=== PATIENT | female | born 1960 | race Caucasian/White ===

== ENCOUNTER → 2019-08-05 11:30 | Outpatient (BNVA) | payer OTHER, SELFPAY | PROVIDERS: Family Provider Internal Medicine; PCP Internal Medicine; Visit Provider Internal Medicine | DX: E11.9 Type 2 diabetes mellitus without complications (principal); K75.81 Nonalcoholic steatohepatitis (NASH); B00.9 Herpesviral infection, unspecified; E78.5 Hyperlipidemia, unspecified; N18.9 Chronic kidney disease, unspecified; L66.3 Perifolliculitis capitis abscedens | CPT/HCPCS: 80053; 80061; 83036; 85025 ==

== ENCOUNTER → 2019-12-04 12:10 | Outpatient (BNVA) | payer OTHER, SELFPAY | PROVIDERS: Family Provider Internal Medicine; PCP Internal Medicine; Visit Provider Internal Medicine | DX: E11.9 Type 2 diabetes mellitus without complications (principal); R21 Rash and other nonspecific skin eruption; E78.5 Hyperlipidemia, unspecified; B00.9 Herpesviral infection, unspecified; N18.9 Chronic kidney disease, unspecified | CPT/HCPCS: 83036 ==

== ENCOUNTER → 2019-12-17 09:49 | Outpatient (BNVA) | payer OTHER, SELFPAY | PROVIDERS: Family Provider Internal Medicine; PCP Internal Medicine; Visit Provider Dermatology | DX: R21 Rash and other nonspecific skin eruption (principal); L40.8 Other psoriasis; L98.9 Disorder of the skin and subcutaneous tissue, unspecified; L81.9 Disorder of pigmentation, unspecified | CPT/HCPCS: 11300; 88305; 99202; 99203 ==

== ENCOUNTER → 2020-02-11 14:07 | Outpatient (BNVA) | payer OTHER, SELFPAY | PROVIDERS: Family Provider Internal Medicine; PCP Internal Medicine; Visit Provider Podiatrist Foot & Ankle Surgery | DX: S93.622A Sprain of tarsometatarsal ligament of left foot, initial encounter (principal); W10.9XXA Fall (on) (from) unspecified stairs and steps, initial encounter | CPT/HCPCS: 73630 ==

== ENCOUNTER 2020-02-11 15:19 | Outpatient (CLI) | payer OTHER, SELFPAY | END 2020-02-11 15:20 | disposition home or self-care (01) | LOC: SPT 15:21 | PROVIDERS: Family Provider Internal Medicine; PCP Internal Medicine; Visit Provider Podiatrist Foot & Ankle Surgery | DX: Z46.89 Encounter for fitting and adjustment of other specified devices (principal); S93.62 Sprain of tarsometatarsal ligament of foot; X58.XXXD Exposure to other specified factors, subsequent encounter | CPT/HCPCS: 97760; L4361 ==

== ENCOUNTER → 2020-02-25 13:47 | Outpatient (BNVA) | payer OTHER, SELFPAY | PROVIDERS: Family Provider Internal Medicine; PCP Internal Medicine; Visit Provider Podiatrist Foot & Ankle Surgery | DX: S93.622D Sprain of tarsometatarsal ligament of left foot, subsequent encounter (principal); W10.9XXD Fall (on) (from) unspecified stairs and steps, subsequent encounter | CPT/HCPCS: 73620; 73630 ==

== ENCOUNTER → 2020-03-04 10:00 | Outpatient (BNVA) | payer OTHER, SELFPAY | PROVIDERS: Family Provider Internal Medicine; PCP Internal Medicine; Visit Provider Internal Medicine | DX: E11.9 Type 2 diabetes mellitus without complications (principal); K75.81 Nonalcoholic steatohepatitis (NASH); B00.9 Herpesviral infection, unspecified; N18.9 Chronic kidney disease, unspecified; E78.5 Hyperlipidemia, unspecified | CPT/HCPCS: 80053; 80061; 83036; 84443; 85025 ==

== ENCOUNTER → 2020-03-17 08:22 | Outpatient (BNVA) | payer OTHER, SELFPAY | PROVIDERS: Family Provider Internal Medicine; PCP Internal Medicine; Visit Provider Podiatrist Foot & Ankle Surgery | DX: M79.672 Pain in left foot (principal) | CPT/HCPCS: 73630 ==

== ENCOUNTER → 2020-05-19 10:20 | Outpatient (BNVA) | payer OTHER, SELFPAY | PROVIDERS: Family Provider Internal Medicine; PCP Internal Medicine; Visit Provider Podiatrist Foot & Ankle Surgery | DX: S99.922A Unspecified injury of left foot, initial encounter (principal); X58.XXXA Exposure to other specified factors, initial encounter | CPT/HCPCS: 73630 ==

== ENCOUNTER → 2020-08-16 08:28 | Outpatient (BNVA) | payer OTHER, SELFPAY | PROVIDERS: Family Provider Internal Medicine; PCP Internal Medicine; Visit Provider Podiatrist Foot & Ankle Surgery | DX: M77.31 Calcaneal spur, right foot (principal) | CPT/HCPCS: 73630 ==

== ENCOUNTER 2020-08-16 13:35 | Outpatient (CLI) | payer OTHER, SELFPAY | END 2020-08-16 13:36 | disposition home or self-care (01) | LOC: SPT 13:36 | PROVIDERS: Family Provider Internal Medicine; PCP Internal Medicine; Visit Provider Podiatrist Foot & Ankle Surgery | DX: Z46.89 Encounter for fitting and adjustment of other specified devices (principal); M79.673 Pain in unspecified foot; M76.829 Posterior tibial tendinitis, unspecified leg; S92.911D Unspecified fracture of right toe(s), subsequent encounter for fracture with routine healing; X58.XXXD Exposure to other specified factors, subsequent encounter | CPT/HCPCS: 97760; L1902 ==

== ENCOUNTER → 2020-09-07 13:28 | Outpatient (BNVA) | payer OTHER, SELFPAY | PROVIDERS: Family Provider Internal Medicine; PCP Internal Medicine; Visit Provider Podiatrist Foot & Ankle Surgery | DX: M79.673 Pain in unspecified foot (principal); M76.829 Posterior tibial tendinitis, unspecified leg; S92.911A Unspecified fracture of right toe(s), initial encounter for closed fracture; E78.5 Hyperlipidemia, unspecified; E11.9 Type 2 diabetes mellitus without complications; N18.9 Chronic kidney disease, unspecified | CPT/HCPCS: 73630 ==

== ENCOUNTER 2020-11-25 13:02 | Emergency (ER) | payer OTHER, SELFPAY ==
[2020-11-25 13:15] VITALS: BP 156/91; PULSE 78; RESP 16; TEMP 36.7; O2SAT 100; BMI 33.9
[2020-11-25 13:30] LABS: Glucose Point of Care 132 mg/dL (70-110)
--- NOTE | 2020-11-25 13:35 | ECG_ITS ---
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 Measurements Intervals [place] Rate: 74 P: 33 VT: 202 QRS: 26 QRSD: 93 T: 31 QT: 410 QTc: 455 Interpretive Statements SINUS RHYTHM Compared to ECG 06/29/2017 09:57:38 No significant changes Electronically Signed On 11-25-2020 18:22:23 CDT by Sawyer Gann M.D. [id number]
[2020-11-25 13:39] VITALS: BP 155/79; PULSE 71; RESP 15; O2SAT 95
--- NOTE | 2020-11-25 13:43 | PC.NURSE ---
PT FSBS 132 HEALTHCARE PROVIDER NOTIFIED.
[2020-11-25 13:46] LABS: Basophils # 0.1 10^3/uL (0.0-0.1); Basophils % 0.6 %; Eosinophils # 0.5 10^3/uL (0.0-0.8); Eosinophils % 3.7 %; Hematocrit 38.1 % (37.0-47.0); Hemoglobin 12.5 g/dL (11.5-15.3); Lymphocytes # 6.1 10^3/uL (0.8-4.8); Lymphocytes % 48.9 %; Mean Corpuscular HGB Conc 32.8 g/dL (30.0-36.0); Mean Corpuscular Hemoglobin 29.9 pg (28.0-34.0); Mean Corpuscular Volume 91.1 fL (81-99); Mean Platelet Volume 9.4 fL (7.4-10.4); Monocytes # 0.8 10^3/uL (0.2-0.9); Monocytes % 6.3 %; Neutrophils # 4.99 10^3/uL (1.8-7.7); Neutrophils % 40.1 %; Nucleated Red Blood Cells % 0 %; Platelet Count 360 10^3/cmm (130-400); Red Blood Count 4.18 10^6/uL (4.1-5.3); Red Cell Distribution Width 13.2 % (12.1-15.1); White Blood Count 12.4 10^3/uL (4.0-10.0)
--- NOTE | 2020-11-25 13:46 | W.ED.GENADLT ---
HPI - General Adult General: Chief complaint: General Medical Stated complaint: SHAKY, TYPE 11 DIABETIC, FEELS LIKE SUGAR IS LOW Time Seen by Provider: 11/25/20 13:33 History of Present Illness: HPI narrative: Hobson shaky today. Hobson like she her blood sugar got too low. We checked it here is 132's which she says is very low for her and she does feel shaky when he gets like that.Also complains about neuropathy in her feet the last few days MD complaint: Shakiness Onset (ago): minute(s) Associated symptoms: Deny chest pain, dyspnea, headache(s), nausea, rash or vomiting Review of Systems Narrative: Shakiness blood sugar dropped Const: Denies: fever(s), chills or body aches Eyes: Denies: change in vision or blurry vision ENMT: Denies: throat pain or nasal congestion Card: Denies: chest pain or dyspnea on exertion Resp: Denies: dyspnea, productive cough or non-productive cough GI: Denies: abdominal pain, nausea or vomiting Musc: Reports: extremity pain Skin/Breast: Denies: rash Neuro: Denies: headache(s) Psych: Denies: anxiety or depression Brian/Lymph: Denies: easy bruising PFSH ED PFSH: Medical History CKD (chronic kidney disease) Diabetes mellitus Hyperlipidemia Lichen sclerosus Primary osteoarthritis of both hands Surgical History History of esophagogastroduodenoscopy (EGD) History of hysterectomy History of renal stent Family History Mother Diabetes Sister Diabetes Stroke Brother Diabetes Clotting disorder Heart disease Cancer bladder cancer Brother Heart disease Hypertension Denies family history of Colon cancer Ovarian cancer Hyperlipidemia Breast cancer Bleeding disorder Uterine cancer Social History Smoking and tobacco status: never smoked Alcohol intake: never History of recent travel: No Physical Exam Const: COMMON NORMALS: no acute distress, average body habitus and patient oriented x3 HENMT: COMMON NORMALS: normocephalic HEAD & SCALP: normal to inspection and normocephalic FACE & SINUS: normal facial exam Eye: COMMON NORMALS: conjunctivae normal GENERAL EYE: appearance normal, both eyes and all related structures CONJUNCTIVA: Yes conjunctivae normal Neck/C-Spine: COMMON NORMALS: no JVD Chest: COMMONS NORMALS: normal inspection of the chest Resp: COMMON NORMALS: normal respiratory effort and clear to auscultation bilaterally AUSCULTATION: clear to auscultation bilaterally Cardio: COMMON NORMALS: no JVD, regular rate and regular rhythm RATE: regular rate RHYTHM: regular rhythm GI: COMMON NORMALS: Normal to inspection, nondistended, normoactive bowel sounds present Extremity: COMMON NORMALS: full ROM Neuro: COMMON NORMALS: patient oriented x3 Course Vital Signs: Vital signs: Vital Signs Temperature 98.0 F 11/25/20 13:15 Pulse Rate 72 11/25/20 14:20 Respiratory Rate 16 11/25/20 14:20 Blood Pressure 144/97 11/25/20 14:20 Pulse Oximetry 94 11/25/20 14:20 MDM - General Adult MDM Narrative: Medical decision making narrative: EKG and labs are normal. Patient states when her sugar gets down as it is in the 130s she feels this way at times. Did not really feel like eating so she drank half a Coke. Comes to the ER because she just did not feel much better. Does complain about neuropathy in her feet which she sees Dr. Souza for. Patient will follow primary care and Dr. Souza. Encourage a good carbohydrate meal consistent with ADA guidelines Lab Data: Labs: Lab Results 11/25/20 11/25/20 11/25/20 Range/Units 13:25 13:35 13:35 WBC 12.4 H (4.0-10.0) 10^3/ uL RBC 4.18 (4.1-5.3) 10^6/u L Hgb 12.5 (11.5-15.3) g/dL Hct 38.1 (37.0-47.0) % MCV 91.1 (81-99) fL MCH 29.9 (28.0-34.0) pg MCHC 32.8 (30.0-36.0) g/dL RDW 13.2 (12.1-15.1) % Plt Count 360 (130-400) 10^3/c mm MPV 9.4 (7.4-10.4) fL Neut % (Auto) 40.1 % Lymph % (Auto) 48.9 % [place] % (Auto) 6.3 % Eos % (Auto) 3.7 % Baso % (Auto) 0.6 % Neut # (Auto) 4.99 (1.8-7.7) 10^3/u L Lymph # (Auto) 6.1 H (0.8-4.8) 10^3/u L [place] # (Auto) 0.8 (0.2-0.9) 10^3/u L Eos # (Auto) 0.5 (0.0-0.8) 10^3/u L Baso # (Auto) 0.1 (0.0-0.1) 10^3/u L Nucleated RBC % (a uto) 0 % Nucleated RBCs # 0.0 /100WBC Sodium 140 (136-145) mmol/L Potassium 4.0 (3.5-5.1) mmol/L Chloride 103 (98-107) mmol/L Carbon Dioxide 24 (22-29) mmol/L Anion Gap 17.0 (5-19) BUN 16 (6-20) mg/dL Creatinine 1.0 H (0.5-0.9) mg/dL GFR Calculation 56.9 L (90-130) mL/min Glucose 136 H (65-115) mg/dL POC Glucose 132 H (70-110) mg/dL Calculated Osmolal ity 293 (285-295) mOsm/k g Calcium 8.7 (8.5-10.5) mg/dL Total Bilirubin 0.2 (0.15-1.2) mg/dL AST 13 (0-32) U/L ALT 10 (0-33) U/L Alkaline Phosphata se 66 (35-105) IU/L Total Protein 6.8 (6.6-8.7) g/dL Albumin 3.6 (3.5-5.2) g/dL Globulin 3.2 (1.3-4.6) g/dL EKG Data^: EKG 1: EKG interpretation date: 11/25/20 EKG interpretation time: 13:50 Computer generated interpretation: Normal sinus rhythm ventricular rate 74 bpm MT interval 202 ms QRS duration 93 ms QT 410 ms Discharge Plan Discharge Patient Disposition: Home Clinical Impression: Low blood sugar, Neuropathy Condition: Stable Prescriptions: New Voltaren 1 % gel 4 g topical QID Qty: 100 RF: 0 No Action clobetasol [Temovate] 0.05 % cream 1 applic topical BID 14 Days Qty: 45 RF: 0 mometasone 0.1 % solution 1 applic TOPICAL DAILY Qty: 60 RF: 2 mupirocin 2 % ointment 1 applic TOPICAL BID Qty: 22 RF: 1 clindamycin phosphate 1 % lotion 1 applic TOPICAL BID Qty: 60 RF: 1 ciclopirox 1 % shampoo 5 ml topical .2 x weekly Qty: 120 RF: 4 (DME) ptt supenator brace See Rx Instructions .Route .MEDSUPPLY Qty: 1 RF: 0 (DME) diabetic shoes and molded insert See Rx Instructions .Route .MEDSUPPLY Qty: 1 RF: 0 lisinopril 20 mg tablet 20 mg PO DAILY 90 Days Qty: 90 RF: 1 valacyclovir [Valtrex] 500 mg tablet 500 mg PO DAILY Qty: 90 RF: 3 gabapentin 600 mg tablet 600 mg PO TID Qty: 90 RF: 3 Linzess 145 mcg capsule 145 mcg PO DAILY Qty: 30 RF: 3 duloxetine 30 mg capsule,delayed release(DR/EC) 90 mg PO DAILY MDD 3 30 Days Qty: 90 RF: 6 pantoprazole 40 mg tablet,delayed release (DR/EC) 40 mg PO DAILY Qty: 30 RF: 3 (DME) pen needle, diabetic [1st Tier Unifine Pentips] 31 gauge x 1/4 needle See Rx Instructions .ROUTE .MEDSUPPLY Qty: 100 RF: 12 terconazole 0.4 % cream 7 g vaginal BEDTIME RF: 0 Tresiba FlexTouch U-200 200 unit/mL (3 mL) insulin pen 70 unit SUBCUT BEDTIME RF: 0 Trulicity 0.75 mg/0.5 mL pen injector 0.75 mg SUBCUT Q7D RF: 0 Discharge Orders: Discharge ED (Routine); Ordered 11/25/20 Ordered By: Chai Hodges Referrals: Horacio Frazier MD [Primary Care Provider] - Discharge Diet: Usual diet Discharge Activity: Increase activity as tolerated Patient Instructions: Diabetic Hypoglycemia (ED), Peripheral Neuropathy (ED) Activity Restrictions/Additional Instructions: Follow-up with medical provider as directed. Take medications as prescribed. Return to the ER or your medical provider if condition worsens. Please read and understand discharge instructions. If any questions ask please. Coding Level of Care Code ED Die Mechanic for Daisy Fwd Exam Comprehensive
[2020-11-25 14:09] LABS: Alanine Aminotransferase 10 U/L (0-33); Albumin Level 3.6 g/dL (3.5-5.2); Alkaline Phosphatase 66 IU/L (35-105); Aspartate Amino Transferase 13 U/L (0-32); Blood Urea Nitrogen 16 mg/dL (6-20); Calcium 8.7 mg/dL (8.5-10.5); Carbon Dioxide 24 mmol/L (22-29); Chloride 103 mmol/L (98-107); Globulin 3.2 g/dL (1.3-4.6); Glomerular Filtration Rate 56.9 mL/min (90-130); Glucose 136 mg/dL (65-115); Osmolality Calculated 293 mOsm/kg (285-295); Sodium 140 mmol/L (136-145); Total Bilirubin 0.2 mg/dL (0.15-1.2); Total Protein 6.8 g/dL (6.6-8.7)
[2020-11-25 14:20] VITALS: BP 144/97; PULSE 72; RESP 16; O2SAT 94
[2020-11-25 14:27] LABS: Slide Review Slide Review Perform
[2020-11-25 15:05] VITALS: BP 162/85; PULSE 70; RESP 18; O2SAT 93
== END 2020-11-25 15:09 | disposition home or self-care (01) ==
PROVIDERS: Emergency Provider Nurse Practitioner Family; PCP Internal Medicine
DX: E11.649 Type 2 diabetes mellitus with hypoglycemia without coma (principal); E11.40 Type 2 diabetes mellitus with diabetic neuropathy, unspecified; E78.5 Hyperlipidemia, unspecified; Z79.4 Long term (current) use of insulin
CPT/HCPCS: 36416; 80053; 82962; 85025; 93005; 99283

== ENCOUNTER 2021-04-14 11:17 | Outpatient (CLI) | payer OTHER, SELFPAY ==
[2021-04-14 11:49] VITALS: BMI 34.3
--- NOTE | 2021-04-14 11:50 | ECG_ITS ---
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 Interpretive Statements NAME OF STUDY: LEXISCAN SESTAMIBI STRESS TEST INDICATION: [syncope, ] Procedure: At the baseline, the blood pressure was 150/93 mmHg with a heart rate of 67 bpm. The electrocardiogram showed normal sinus rhythm, normal axis with normal ST and T's. The Lexiscan was infused over a period of 20 seconds. A total of 0.4 mg of Lexiscan was infused. The stress phase was continued for a total of 5 minutes. Heart rate was at the end of stress phase was 83 bpm and a blood pressure of 160/91 mmHg. The EKG at the peak infusion revealed since normal sinus rhythm with no significant ST-T wave changes. Sestamibi was injected 20 seconds after the Lexiscan infusion. Blood pressure at the end of recovery phase was 150/99 mmHg with a heart rate of 76 bpm. Conclusion: 1. Normal EKG response to Lexiscan infusion 2. No Lexiscan induced chest pain or cardiac arrhythmia. 3. Normal blood pressure and heart rate response. 4. Sestamibi/sestamibi perfusion scan pending; see separate report. Electronically Signed On 04-18-2021 11:31:29 MILK RECEIVER by Sawyer Gann M.D. [id number]
--- NOTE | 2021-04-14 11:50 | NMCV_ITS ---
NM danilo perf SPECT r/s* [id number] Amna Stoner Age: 60 Gender: F : 1960 Exam Date: 04/14/2021 12:36 Ordering Phys: Horacio Frazier MD Technologist: ROXIE Torres Exam Location: [facility] Indications: SHORTNESS OF BREATH STRESS TEST Please see separate stress test report in [facility]any for full findings IMAGE PROTOCOL Rest/Stress 1 Lexiscan Day Radiopharmaceutical Dose (mCi) Administration Site Administered by Rest: Tc-99m 10.9 IV ROXIE Lara Sestamibi Stress:Tc-99m 32.6 IV ROXIE Torres Sestamisobeida Rest: 14-Apr-2021 60 Discovery 630 Stress: 14-Apr-2021 30 Discovery 630 0.4mg Lexiscan. Images obtained in supine and prone position. SPECT RESULTS Technical Quality: Excellent Raw Data Analysis: Normal Image Corrections: No attenuation or motion correction applied Summed Stress Score: 0 Summed Rest Score: 0 Summed Difference Score: 0 PERFUSION FINDINGS SPECT images demonstrate homogeneous tracer distribution throughout the myocardium. FUNCTIONAL RESULTS (calculated via Gated SPECT) Stress Image LV EF (%): 56 Stress EDV (mL):86 TID: 1.12 Stress ESV (mL):38 FUNCTIONAL FINDINGS: There is normal left ventricular systolic function. IMPRESSIONS 1. Normal myocardial perfusion imaging with no evidence of ischemia 2. LV systolic function is normal Sawyer Gann MD (Electronically Signed) Final Date: 14 April 2021 15:31 S
[2021-04-14] MEDS: regadenoson 0.4 Mg/5 ml Syringe IVP (13:12)
[2021-04-14 13:36] VITALS: BP 150/89; PULSE 76
--- NOTE | 2021-04-14 14:27 | USCV_ITS ---
Amna Stoner Age: 60 Gender: F : 1960 Exam Date: 04/14/2021 15:05 Ordering Phys: Horacio Frazier MD Technologist: Odilon Bueno Exam Location: [facility] [place] Indication: SYNCOPE BP: 132 / 90 HR: 53 Rhythm: Sinus Technical Quality: Adequate MEASUREMENTS (Male / Female) Normal Values 2D ECHO LV Diastolic Diameter PLAX 3.9 cm 4.2 - 5.9 / 3.9 - 5.3 cm LV Systolic Diameter PLAX 2.6 cm IVS Diastolic Thickness 0.9 cm 0.6 - 1.0 / 0.6 - 0.9 cm IVS Systolic Thickness 1.3 cm LVPW Diastolic Thickness 1.6 cm 0.6 - 1.0 / 0.6 - 0.9 cm LVPW Systolic Thickness 1.4 cm LVOT Diameter 2.0 cm LV Ejection Fraction 2D Teich 62.3 % LV Ejection Fraction MOD 2C 51.5 % LV Ejection Fraction 2C AL 57.2 % LA Diameter 3.0 cm LA Width 3.8 cm LA Height 4.2 cm RA Width 3.1 cm RA Height 3.6 cm Aorta at Sinotubular Diameter 2.5 cm DOPPLER AV Peak Velocity 119.0 cm/s LVOT Peak Velocity 101.0 cm/s AV Area Cont Eq vti 2.2 cm squared AV Area Cont Eq pk 2.7 cm squared MV Area PHT 3.9 cm squared Mitral E to A Ratio 0.6 MV E' Velocity 72.0 cm/s Right Atrial Pressure 3.0 mmHg PV Peak Velocity 52.0 cm/s RV Acceleration Time 0.1 s RV Ejection Time 0.3 s RV AcT/ET 0.2 FINDINGS Left Ventricle Normal left ventricular cavity size. Normal left ventricular systolic function. No regional wall motion abnormalities. Left ventricular ejection fraction is estimated at 60 %. Grade I/IV diastolic dysfunction (abnormal relaxation filling pattern), normal to mildly elevated filling pressures. Right Ventricle The right ventricle is normal in size and function. RVSP could not be calculated due to incomplete tricuspid regurgitation velocity profile. Right Atrium The right atrium is normal in size. Left Atrium The left atrium is normal in size. Mitral Valve Moderately thickened mitral valve. Mitral annular calcification. No mitral valve stenosis. No mitral valve regurgitation. Aortic Valve Mild aortic valve calcification. No aortic valve stenosis. No aortic valve regurgitation. Tricuspid Valve Structurally normal tricuspid valve without significant stenosis or regurgitation. Pulmonic Valve Structurally normal pulmonic valve without significant stenosis. There is no pulmonic regurgitation. Pericardium Normal pericardium without effusion. Aorta Normal ascending aorta dimension. CONCLUSIONS 1-Normal left ventricular cavity size. Normal left ventricular systolic function. No regional wall motion abnormalities. Left ventricular ejection fraction is estimated at 60 %. Grade I/IV diastolic dysfunction (abnormal relaxation filling pattern), normal to mildly elevated filling pressures. 2-No significant valve abnormalities. 3-There is no pericardial effusion. 4-The right ventricle is normal in size and function. RVSP could not be calculated due to incomplete tricuspid regurgitation velocity profile. 5-Right atrial pressure is around 5 mm of mercury. 6-There are no prior echocardiogram studies to compare. Mimi Treviño MD (Electronically Signed) Final Date: 17 April 2021 16:23 S
== END 2021-04-14 11:18 | disposition home or self-care (01) ==
LOC: CDL 11:20
PROVIDERS: PCP Internal Medicine; Visit Provider Internal Medicine
DX: R55 Syncope and collapse (principal); R42 Dizziness and giddiness; R06.02 Shortness of breath
CPT/HCPCS: 78452; 93017; 93306; A9500; J2785

== ENCOUNTER → 2021-04-20 15:23 | Outpatient (BNVA) | payer OTHER, SELFPAY | PROVIDERS: PCP Internal Medicine; Visit Provider Internal Medicine | DX: Z00.00 Encounter for general adult medical examination without abnormal findings (principal); E11.9 Type 2 diabetes mellitus without complications | CPT/HCPCS: 83036 ==

== ENCOUNTER 2021-05-03 15:22 | Outpatient (CLI) | payer OTHER, SELFPAY | END 2021-05-03 15:23 | disposition home or self-care (01) | LOC: SPT 15:24 | PROVIDERS: PCP Internal Medicine; Visit Provider Podiatrist Foot & Ankle Surgery | DX: Z46.89 Encounter for fitting and adjustment of other specified devices (principal); M76.829 Posterior tibial tendinitis, unspecified leg | CPT/HCPCS: 97760; L3030 ==

== ENCOUNTER → 2021-05-25 14:37 | Outpatient (BNVA) | payer OTHER, SELFPAY | PROVIDERS: PCP Internal Medicine; Visit Provider Registered Nurse Neonatal Intensive Care | DX: N39.0 Urinary tract infection, site not specified (principal); N12 Tubulo-interstitial nephritis, not specified as acute or chronic | CPT/HCPCS: 81000 ==

== ENCOUNTER 2021-07-08 06:00 | Outpatient (RCR) | payer OTHER, SELFPAY | END 2021-07-11 23:59 | disposition home or self-care (01) | LOC: APT 06:00 | PROVIDERS: PCP Internal Medicine; Referring Provider Podiatrist Foot & Ankle Surgery; Visit Provider Podiatrist Foot & Ankle Surgery | DX: M72.2 Plantar fascial fibromatosis (principal) | CPT/HCPCS: 97162 ==

== ENCOUNTER 2021-07-12 06:00 | Outpatient (RCR) | payer OTHER, SELFPAY | END 2021-08-08 23:59 | disposition home or self-care (01) | LOC: APT 06:00 | PROVIDERS: PCP Internal Medicine; Referring Provider Podiatrist Foot & Ankle Surgery; Visit Provider Podiatrist Foot & Ankle Surgery | DX: M72.2 Plantar fascial fibromatosis (principal) | CPT/HCPCS: 97035; 97110; 97140 ==

== ENCOUNTER 2021-08-09 06:00 | Outpatient (RCR) | payer OTHER, SELFPAY | END 2021-09-08 23:59 | disposition home or self-care (01) | LOC: APT 06:00 | PROVIDERS: PCP Internal Medicine; Referring Provider Podiatrist Foot & Ankle Surgery; Visit Provider Podiatrist Foot & Ankle Surgery | DX: M72.2 Plantar fascial fibromatosis (principal) | CPT/HCPCS: 97035; 97110; 97140 ==

== ENCOUNTER 2021-09-09 06:00 | Outpatient (RCR) | payer OTHER, SELFPAY | END 2021-09-16 23:59 | disposition home or self-care (01) | LOC: APT 06:00 | PROVIDERS: PCP Internal Medicine; Referring Provider Podiatrist Foot & Ankle Surgery; Visit Provider Podiatrist Foot & Ankle Surgery | DX: M72.2 Plantar fascial fibromatosis (principal) | CPT/HCPCS: 97035; 97140 ==

== ENCOUNTER 2021-09-14 14:10 | Emergency (ER) | payer OTHER, SELFPAY ==
[2021-09-14 15:11] VITALS: BP 134/84; PULSE 78; RESP 20; TEMP 36.8; O2SAT 98; BMI 31.9
--- NOTE | 2021-09-14 15:23 | XR_ITS ---
WS: [id number] XR ankle RT min 3V* [id number] REASON FOR EXAM: ankle injury-rolled ankle and felt crack FINDINGS: There is soft tissue swelling over the lateral malleolus. An acute fracture of the lateral malleolus is not identified. No avulsion is seen from the talus in r elation to the lateral collateral ligament. Tibia and talus are intact. XR/XR ankle RT min 3V* [id number] IMPRESSION: Soft tissue swelling. Acute fracture not identified.
--- NOTE | 2021-09-14 15:24 | ED_ITS ---
HPI - Extremity Problem General: Chief complaint: Extremity Injury, Lower Stated complaint: twisted right ankle Time Seen by Provider: 09/14/21 15:23 History of Present Illness: Patient is a 60-year-old female comes to the ED with right ankle injury. Patient says she was out working in her yard. She was walking and then rolled her right ankle. She felt a crack in her ankle. She now has 9 out of 10 pain in her ankle and has not been able to ambulate or do any weightbearing on right ankle since injury. She has not taken anything for pain before coming to the ED. Associated symptoms: Deny chest pain, fever(s) or rash Review of Systems Const: Denies: fever(s), chills or fatigue Eyes: Denies: change in vision or eye discomfort ENMT: Denies: throat pain, odynophagia, nasal discharge or nasal congestion Card: Denies: chest pain, palpitations, edema, swelling of feet/ankles, dyspnea on exertion or orthopnea Resp: Denies: dyspnea, productive cough or non-productive cough GI: Denies: abdominal pain, nausea, vomiting, diarrhea, constipation or hematochezia : Denies: flank pain, dysuria or hematuria Musc: Reports: extremity pain (right ankle), extremity swelling (right ankle) and limited range of motion (right ankle); Denies: neck pain or back pain Skin/Breast: Denies: rash or new lesions Neuro: Denies: headache(s), numbness in extremities or weakness in extremities PFS ED PFSH: Medical History CKD (chronic kidney disease) Diabetes mellitus Hyperlipidemia Lichen sclerosus Primary osteoarthritis of both hands Surgical History History of esophagogastroduodenoscopy (EGD) History of hysterectomy History of renal stent Family History Mother Diabetes Sister Diabetes Stroke Brother Diabetes Clotting disorder Heart disease Cancer bladder cancer Brother Heart disease Hypertension Denies family history of Colon cancer Ovarian cancer Hyperlipidemia Breast cancer Bleeding disorder Uterine cancer Social History Smoking and tobacco status: never smoked Alcohol intake: never History of recent travel: No Physical Exam Const: COMMON NORMALS: no acute distress, patient oriented x3, healthy appearing and alert GENERAL APPEARANCE: cooperative HENMT: COMMON NORMALS: normocephalic HEAD & SCALP: normocephalic MOUTH: Normal oral and palatal mucosa present THROAT: posterior oropharynx normal and uvula midline Neck/C-Spine: COMMON NORMALS: supple GENERAL: Yes normal visual inspection Resp: COMMON NORMALS: normal respiratory effort, No retractions, No use of accessory muscles and clear to auscultation bilaterally AUSCULTATION: clear to auscultation bilaterally Cardio: COMMON NORMALS: regular rate, regular rhythm, S1 normal heart sound present, S2 normal heart sound present, No gallops present (Cardio), No clicks present (Cardio), No murmurs present (Cardio) and Peripheral pulses 2+ throughout RATE: regular rate RHYTHM: regular rhythm HEART SOUNDS: S1 normal heart sound present and S2 normal heart sound present PERIPHERAL PULSES: Peripheral pulses 2+ throughout GI: COMMON NORMALS: Normal to inspection, nondistended, normoactive bowel sounds present, Soft to palpation, non-tender and no masses PALPATION: Yes Soft to palpation : COMMON NORMALS: Yes no CVA tenderness BLADDER/KIDNEY EXAM: Yes no CVA tenderness Back/Pelvis: COMMON NORMALS: no CVA tenderness Extremity: GENERAL: Yes normal exam except as noted RIGHT LOWER EXTREMITY: Yes foot & digits (Tenderness over lateral malleolus) Right ankle: Yes inspection (No visible deformity noted. Ecchymosis and swelling over lateral malleolus), Yes palpation, Yes ROM and Yes neurovascular exam OTHER: Right ankle?no visible deformity seen. Ecchymosis and swelling over lateral malleolus. Tenderness over lateral malleolus. Limited range of motion due to pain. Neurovascular tact. Neuro: COMMON NORMALS: patient oriented x3 and moves all extremities SENSORIUM/ORIENTATION: Yes alert Skin: GENERAL SKIN EXAM: dry skin Course Vital Signs: Vital signs: Vital Signs Temperature 98.3 F 09/14/21 15:11 Pulse Rate 78 09/14/21 15:11 Respiratory Rate 20 H 09/14/21 15:11 Blood Pressure 134/84 09/14/21 15:11 Pulse Oximetry 98 09/14/21 15:11 MDM - Extremity (Nontraumatic) Medical Decision Making Patient is a 60-year-old female comes to the ED with right ankle injury. Patient says she rolled her right ankle while working out in her yard today and felt a crack. Patient has some ecchymosis and swelling around lateral malleolus. She is unable to bear weight on right ankle. Right leg neurovascular intact. Radiologist read right ankle x-ray as showing no acute fractures. I reviewed x-ray shows an avulsion fracture at the distal lateral malleolus. Given her clinical presentation I am going to treat as an ankle fracture. Patient was put in a posterior leg splint with stirrup and given crutches. I placed an order with case management for patient be referred to Ortho for follow-up. She was sent home with a prescription for hydrocodone for pain. Return to ED precautions given. Patient understood and agreed with plan. Lab Data Radiology Impressions Ankle X-Ray 09/14/21 15:23 IMPRESSION: Soft tissue swelling. Acute fracture not identified. I reviewed right ankle x-ray?appears that patient has a possible avulsion fracture in the distal lateral malleolus. She also has some soft tissue swelling seen over lateral malleolus. Discharge Plan Discharge Patient Disposition: Home Clinical Impression: Ankle fracture, right Condition: Stable Prescriptions: No Action clobetasol [Temovate] 0.05 % cream 1 applic topical BID 14 Days Qty: 45 0RF triamcinolone acetonide 0.1 % ointment 1 applic topical BID Qty: 80 0RF Rx Instructions: apply to affected areas on legs and arms no more than 2 weeks/mo ciclopirox 1 % shampoo 5 ml topical .2 x weekly Qty: 120 4RF Rx Instructions: Apply to scalp 2 times weekly. Allow to to sit 5 min. then rinse. ciprofloxacin HCl 500 mg tablet 500 mg PO BID 14 Days Qty: 28 0RF mupirocin 2 % ointment 1 applic TOPICAL BID Qty: 22 1RF Rx Instructions: Apply BID to open areas on face until healed (DME) ptt supenator brace See Rx Instructions .Route .MEDSUPPLY Qty: 1 0RF Rx Instructions: As directed (DME) Custom Molded Orthotics See Rx Instructions .Route .MEDSUPPLY Qty: 1 0RF Rx Instructions: As directed prednisone 10 mg tablet 10 mg PO DAILY 12 Days Qty: 42 0RF Rx Instructions: 12 day taper valacyclovir [Valtrex] 500 mg tablet 500 mg PO DAILY Qty: 90 3RF gabapentin 600 mg tablet 600 mg PO TID Qty: 90 3RF Linzess 145 mcg capsule 145 mcg PO DAILY Qty: 30 3RF (DME) pen needle, diabetic [1st Tier Unifine Pentips] 31 gauge x 1/4 needle See Rx Instructions .ROUTE .MEDSUPPLY Qty: 100 12RF Rx Instructions: As directed clindamycin phosphate 1 % lotion 1 applic TOPICAL BID Qty: 60 1RF Rx Instructions: Apply thin film to face and hairline twice daily mometasone 0.1 % solution 1 applic TOPICAL DAILY Qty: 60 2RF Rx Instructions: Apply 3-5 drops to posterior scalp nightly as needed for itching lisinopril 20 mg tablet 20 mg PO DAILY 90 Days Qty: 90 1RF Trulicity 0.75 mg/0.5 mL pen injector 0.75 mg SUBCUT Q7D Qty: 2 3RF Rx Instructions: INJECT 1 PEN EVERY 7 DAYS ON SUNDAY. pantoprazole 40 mg tablet,delayed release (DR/EC) 40 mg PO DAILY Qty: 30 3RF fluticasone propionate [Flonase Allergy Relief] 50 mcg/actuation spray,saad pension 1 spray intranasal Q12H 90 Days Qty: 48 0RF Rx Instructions: administer into each nostril Tresiba FlexTouch U-200 200 unit/mL (3 mL) insulin pen See Rx Instructions .ROUTE .COMPLEX Qty: 9 8RF Dose Instruction: INJECT 70 UNITS SUBCUTANEOUSLY EVERY DAY AT BEDTIME Rx Instructions: INJECT 70 UNITS SUBCUTANEOUSLY EVERY DAY AT BEDTIME duloxetine 30 mg capsule,delayed release(DR/EC) 90 mg PO DAILY MDD 3 30 Days Qty: 90 6RF terconazole 0.4 % cream 7 g vaginal BEDTIME 0RF Voltaren 1 % gel 4 g topical QID Qty: 100 0RF Rx Instructions: apply to single knee, ankle, foot; for foot includes sole/toes/top of foot Discharge Orders: Discharge ED (Routine); Ordered 09/14/21 Ordered By: Drew Martin Referrals: Horacio Frazier MD [Primary Care Provider] - Discharge Diet: Regular Discharge Activity: Limit activity as instructed and Use walker/crutches as instructed Patient Instructions: Ankle Fracture (ED), Opioid Safety Activity Restrictions/Additional Instructions: Follow-up with medical provider as directed. Case management should be contacting you the next several days to set up an appointment with Ortho for follow-up. Keep splint on and dry and use crutches with ambulation. No weightbearing on right ankle until cleared by Ortho. Take medications as prescribed. Return to the ER or your medical provider if condition worsens. Please read and understand discharge instructions. Thank you for choosing [facility] for your healthcare needs today. Please realize this is an emergency room and that we are providing you with a medical screening exam and this may not be complete and all inclusive of all the testing and or work up that you may need to determine your ailment or severity of your illness. It is very important that you follow up as instructed or that you return to the Emergency Department should you have concerns or if your condition changes or worsens in any way. Coding Level of Care Code ED Recreational Assistant for Daisy Shahid Exam Comprehensive
--- NOTE | 2021-09-15 12:42 | DCPLANNER ---
Addendum entered by Radha Lugo 09/28/21 15:41: Patient has a follow up appointment scheduled for 09.16.[address] Souza at ortho - patient did attend appointment. Addendum entered by Radha Lugo 09/16/21 06:48: Patient has a follow up appointment scheduled for Thursday, September 16, 2021 at 3:[address] Souza at ortho. Clinic will call patient with appointment information. Original Note: manager business systems had message to schedule a follow up appointment for patient with ortho. manager business systems sent patients information to the front staff at ortho for review. Patients information will be printed and reviewed. Clinic will call patient with appointment information.
== END 2021-09-14 16:41 | disposition home or self-care (01) ==
PROVIDERS: Emergency Provider Physician Assistant; PCP Internal Medicine
DX: S82.61XA Displaced fracture of lateral malleolus of right fibula, initial encounter for closed fracture (principal); X50.1XXA Overexertion from prolonged static or awkward postures, initial encounter
CPT/HCPCS: 29515; 73610; 99283

== ENCOUNTER → 2021-09-30 14:04 | Outpatient (BNVA) | payer OTHER, SELFPAY | PROVIDERS: PCP Internal Medicine; Visit Provider Podiatrist Foot & Ankle Surgery | DX: S82.891A Other fracture of right lower leg, initial encounter for closed fracture (principal); X58.XXXA Exposure to other specified factors, initial encounter | CPT/HCPCS: 73610 ==

== ENCOUNTER 2021-09-30 14:46 | Outpatient (CLI) | payer OTHER, SELFPAY | END 2021-09-30 14:47 | disposition home or self-care (01) | LOC: SPT 14:47 | PROVIDERS: PCP Internal Medicine; Visit Provider Podiatrist Foot & Ankle Surgery | DX: Z46.89 Encounter for fitting and adjustment of other specified devices (principal); S82.831D Other fracture of upper and lower end of right fibula, subsequent encounter for closed fracture with routine healing; X58.XXXD Exposure to other specified factors, subsequent encounter | CPT/HCPCS: 97760; L1902 ==

== ENCOUNTER → 2021-10-27 14:38 | Outpatient (BNVA) | payer OTHER, SELFPAY | PROVIDERS: PCP Internal Medicine; Visit Provider Podiatrist Foot & Ankle Surgery | DX: T14.8XXA Other injury of unspecified body region, initial encounter (principal) | CPT/HCPCS: 73630 ==

== ENCOUNTER → 2021-11-17 11:03 | Outpatient (BNVA) | payer OTHER, SELFPAY | PROVIDERS: PCP Internal Medicine; Visit Provider Internal Medicine | DX: E11.9 Type 2 diabetes mellitus without complications (principal); B00.9 Herpesviral infection, unspecified; E78.5 Hyperlipidemia, unspecified; N18.9 Chronic kidney disease, unspecified; L90.0 Lichen sclerosus et atrophicus; R42 Dizziness and giddiness; R55 Syncope and collapse | CPT/HCPCS: 80053; 83036; 84443; 85025 ==

== ENCOUNTER → 2021-11-30 11:30 | Outpatient (BNVA) | payer OTHER, SELFPAY | PROVIDERS: PCP Internal Medicine; Visit Provider Podiatrist Foot & Ankle Surgery | DX: S82.831A Other fracture of upper and lower end of right fibula, initial encounter for closed fracture (principal); X58.XXXA Exposure to other specified factors, initial encounter | CPT/HCPCS: 73610 ==

== ENCOUNTER 2022-01-05 13:56 | Outpatient (CLI) | payer OTHER, SELFPAY ==
--- NOTE | 2022-01-05 14:30 | XR_ITS ---
WS: [id number] DEXA (DUAL ENERGY X-RAY ABSORPTIOMETRY) Bone mineral density was performed using a [employer] machine. HISTORY: fractures COMPARISON: None available. Lumbar spine BMD (L1-L4): 1.037 g/cm2 T score: -1.2 Z score: -0.9 Total hip BMD: Left: 1.003 g/cm2. T score: 0.0 Z score: 0.2 Right: 0.965 g/cm2. T score: -0.3 Z score: -0.1 10 year probability of a major osteoporotic fracture is 13.5%. XR/XR DEXA axial skeleton* 78991 IMPRESSION: OSTEOPENIA based upon the WHO classification for females.
== END 2022-01-05 13:57 | disposition home or self-care (01) ==
LOC: RAD 13:57
PROVIDERS: PCP Internal Medicine; Visit Provider Internal Medicine
DX: E11.9 Type 2 diabetes mellitus without complications (principal); M85.80 Other specified disorders of bone density and structure, unspecified site
CPT/HCPCS: 77080

== ENCOUNTER → 2022-04-20 09:57 | Outpatient (BNVA) | payer OTHER, SELFPAY | PROVIDERS: PCP Internal Medicine; Visit Provider Internal Medicine | DX: E11.9 Type 2 diabetes mellitus without complications (principal); N18.9 Chronic kidney disease, unspecified; E78.5 Hyperlipidemia, unspecified; Z00.00 Encounter for general adult medical examination without abnormal findings; B00.9 Herpesviral infection, unspecified | CPT/HCPCS: 83036 ==

== ENCOUNTER 2022-09-03 22:21 | Inpatient (IN) | payer OTHER, SELFPAY ==
[2022-09-03 22:36] VITALS: BP 152/97; PULSE 79; RESP 18; TEMP 36.7; O2SAT 96
--- NOTE | 2022-09-03 23:48 | ECG_ITS ---
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 Measurements Intervals [place] Rate: 76 P: 37 LA: 198 QRS: 15 QRSD: 102 T: 14 QT: 398 QTc: 449 Interpretive Statements SINUS RHYTHM NONSPECIFIC ST & T-WAVE ABNORMALITY Compared to ECG 09/04/2022 00:32:35 No significant changes Electronically Signed On 09-04-2022 11:29:03 CDT by Sawyer Gann M.D. [id number]
--- NOTE | 2022-09-03 23:48 | XRR_ITS ---
PROCEDURE INFORMATION: Exam: XR Chest Exam date and time: 09/03/2022 11:58 PM Age: 61 years old Clinical indication: Shortness of breath; Additional info: SOB TECHNIQUE: Imaging protocol: Radiologic exam of the chest. Views: 1 view. COMPARISON: CR XR chest 1V [id number] 08/29/2017 11:10 PM FINDINGS: Lungs: Mild atelectasis at the left lung base. Right lung is clear. No consolidative pulmonary infiltrate noted. Pleural spaces: No pleural effusion. No pneumothorax. Heart/Mediastinum: No cardiomegaly. Bones/joints: Unremarkable. XR/XR chest 1V portable [id number] IMPRESSION: 1. Mild atelectasis at the left lung base. This is new when compared to 08/29/2017. 2. No consolidative pulmonary infiltrate noted.
[2022-09-03 23:54] VITALS: BP 170/104; PULSE 78; RESP 18; O2SAT 97
[2022-09-03 23:57] LABS: Basophils # 0.1 10^3/uL (0.0-0.1); Basophils % 0.7 %; Eosinophils # 0.3 10^3/uL (0.0-0.8); Eosinophils % 2.2 %; Hematocrit 42.8 % (37.0-47.0); Hemoglobin 13.8 g/dL (11.5-15.3); Lymphocytes # 4.8 10^3/uL (0.8-4.8); Lymphocytes % 41.4 %; Mean Corpuscular HGB Conc 32.2 g/dL (30.0-36.0); Mean Corpuscular Hemoglobin 29.1 pg (28.0-34.0); Mean Corpuscular Volume 90.1 fl (81-99); Mean Platelet Volume 8.9 fL (7.4-10.4); Monocytes # 0.7 10^3/uL (0.2-0.9); Monocytes % 6.2 %; Neutrophils # 5.65 10^3/uL (1.8-7.7); Neutrophils % 48.7 %; Nucleated Red Blood Cells % 0 %; Platelet Count 351 10^3/cmm (130-400); Red Blood Count 4.75 10^6/uL (4.1-5.3); White Blood Count 11.6 10^3/uL (4.0-10.0)
[2022-09-04] VITALS (64 sets, daily range): BP systolic 107–178; BP diastolic 62–107; PULSE 64–80; RESP 11–27; TEMP 36.6–37.1; O2SAT 91–99
[2022-09-04 00:14] LABS: D Dimer 1.13 ug/mIFEU (0-0.59)
[2022-09-04 00:17] LABS: Alanine Aminotransferase 11 U/L (0-33); Albumin Level 3.6 g/dL (3.5-5.2); Alkaline Phosphatase 72 U/L (35-105); Aspartate Amino Transferase 15 U/L (0-32); Blood Urea Nitrogen 10 mg/dL (6-20); Calcium 9.1 mg/dL (8.5-10.5); Carbon Dioxide 26 mmol/L (22-29); Chloride 101 mmol/L (98-107); Globulin 3.9 g/dL (1.3-4.6); Glomerular Filtration Rate 56.7 mL/min (90-130); Glucose 258 mg/dL (65-115); Osmolality Calculated 296 mOsm/kg (285-295); Sodium 139 mmol/L (136-145); Total Bilirubin 0.2 mg/dL (0.15-1.2); Total Protein 7.5 g/dL (6.6-8.7)
[2022-09-04 00:17] LABS: Influenza A by IFA negative (Negative); Influenza B by IFA negative (Negative); SARS Covid-2 Antigen negative (Negative)
[2022-09-04 00:23] LABS: Troponin(5th) Baseline 202 ng/L (0-10)
--- NOTE | 2022-09-04 00:29 | ECG_ITS ---
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 Measurements Intervals [place] Rate: 72 P: 40 [place]: 198 QRS: 10 QRSD: 101 T: 7 QT: 388 QTc: 425 Interpretive Statements SINUS RHYTHM NONSPECIFIC ST & T-WAVE ABNORMALITY Compared to ECG 09/04/2022 00:32:35 No significant changes Electronically Signed On 09-04-2022 11:28:16 CDT by Sawyer Gann M.D. [id number]
[2022-09-04] MEDS: heparin 5,000 unit/mL INJ 1 mL 4000 UNIT IVP (00:38)
[2022-09-04 01:54] LABS: Troponin 5 2HR 218.4 ng/L (0-10); Troponin 5 2HR Delta 16.4 ABS# (0-10)
--- NOTE | 2022-09-04 02:22 | PM.HP ---
Providers/Chief Complaint Admitting Physician: Rabia Jenkins MD Primary Care Provider: Horacio Frazier MD Chief Complaint: Chest Pain\Left Arm Pain History of Present Illness Amna Stoner is a 61 year old female who presented to the emergency room with chief complaint of chest pain. Pain had been off and on throughout the day. She noted it initially around 3 AM when it awakened her from sleep. It was located in the left arm initially and then appreciated in the center of her chest above her heart. She said it felt like something was grabbing her lungs and pulling on them. It lasted just a little while and went away and she went back to sleep. While she was in jainism this morning the pain recurred. She almost thought she would have to get up and leave jainism because it was so bad but it did settle down. She rested for a while in the afternoon. She went back to jainism this evening and had dinner and was getting ready to go to bed when the pain recurred again in her left arm down to her wrist and in the center of her chest. She said when the pain comes on it hurts more if she tries to breathe through her nose. She denies any associated nausea, diaphoresis, palpitations. She has never had anything like this before. She does have a history of diabetes mellitus type 2 and hyperlipidemia. No personal history of coronary artery disease. She has significant family history of heart disease. She herself underwent stress testing and echocardiogram in 2020 that were unremarkable. EKGs here with nonspecific changes, no ST elevation. Initial troponin however was 202 with 2-hour troponin delta at 16. At the present time patient is resting chest pain-free. She has been started on a heparin drip and received aspirin therapy. Hospitalist were contacted for admission. Review of Systems Const: Reports: fatigue; Denies: fever(s) or chills ENMT: Reports: other (Cold symptoms) Card: Denies: edema or dyspnea on exertion Resp: Reports: productive cough; Denies: pain on inspiration GI: Reports: constipation (Chronic problem, takes Linzess); Denies: nausea, vomiting or hematochezia : Denies: difficulty voiding Musc: Reports: other (Arthritis pain) Skin/Breast: Reports: other (Chronic skin issues) Neuro: Denies: weakness in extremities, confusion or Slurred speech present Brian/Lymph: Denies: easy bruising or easy bleeding Medications/Allergies Home Medications Medication Instructions Recorded Confirmed Last Taken Type clobetasol 0.05 % topical cream 1 applic topical BID 2 weeks #45 06/23/20 09/04/22 11/24/20 Rx (Temovate) grams valacyclovir 500 mg tablet 500 mg PO DAILY #90 tabs 08/01/20 09/04/22 11/24/20 Rx (Valtrex) gabapentin 600 mg tablet 600 mg PO TID #90 tabs 08/30/20 09/04/22 11/24/20 Rx linaclotide 145 mcg capsule 145 mcg PO DAILY #30 caps 09/27/20 09/04/22 Unknown Rx (Linzess) diclofenac sodium 1 % topical gel 4 g topical QID #100 grams 11/25/20 09/04/22 Unknown Rx (Voltaren) clindamycin phosphate 1 % lotion 1 applic topical BID #60 mL 02/21/21 09/04/22 Unknown Rx mometasone 0.1 % topical solution 1 applic topical DAILY #60 mL 02/21/21 09/04/22 Unknown Rx fluticasone propionate 50 1 spray intranasal Q12H 90 days 08/08/21 09/04/22 Unknown Rx mcg/actuation nasal #48 grams spray,suspension (Flonase Allergy Relief) dulaglutide 3 mg/0.5 mL 3 mg (0.5 mL) SUBCUT .Weekly #2 mL 11/17/21 09/04/22 08/30/22 21:00 Rx subcutaneous pen injector (Trulicity) duloxetine 30 mg capsule,delayed 90 mg PO DAILY 30 days #90 caps 11/25/21 09/04/22 Unknown Rx release insulin degludec 200 unit/mL (3 70 unit (0.35 mL) SUBCUT .at 12/07/21 09/04/22 Unknown Rx mL) subcutaneous pen (Tresiba bedtime 90 days #9 mL FlexTouch U-200 insulin) fluocinolone 0.01 % scalp oil and 1 ea topical DAILY #118.28 mL 01/02/22 09/04/22 Unknown Rx shower cap flash glucose sensor (FreeStyle #1 ea 01/23/22 09/04/22 Unknown Rx Oneyda 14 Day Sensor kit) pen needle, diabetic 31 gauge x #100 ea 02/09/22 09/04/22 Unknown Rx 1/4 (1st Tier Unifine Pentips) apremilast 30 mg tablet (Otezla) 30 mg PO BID #60 tabs 03/24/22 09/04/22 Unknown Rx ciclopirox 1 % shampoo 10 ml topical ONCE #120 mL 05/24/22 09/04/22 Unknown Rx mupirocin 2 % topical ointment 1 applic topical BID #22 grams 05/24/22 09/04/22 Unknown Rx lisinopril 20 mg tablet 20 mg PO DAILY 09/04/22 09/04/22 Unknown History pantoprazole 40 mg tablet,delayed 40 mg PO DAILY 09/04/22 09/04/22 Unknown History release Allergies Allergy/AdvReac Type Severity Reaction Status Date / Time aspirin Allergy Unknown Verified 05/24/22 15:17 fluconazole [From Diflucan] Allergy ALGY-Rash Verified 05/24/22 15:17 Penicillins Allergy Unknown Verified 05/24/22 15:17 pregabalin [From Lyrica] Allergy Unknown Verified 05/24/22 15:17 Sulfa (Sulfonamide Allergy Unknown Verified 05/24/22 15:17 Antibiotics) sulfamethoxazole Allergy Unknown Verified 05/24/22 15:17 [From Bactrim] trimethoprim [From Bactrim] Allergy Unknown Verified 05/24/22 15:17 PFSH Acute PFSH: Medical History (Updated 09/04/22 @ 04:25 by Rabia Jenkins MD) Chronic constipation CKD (chronic kidney disease) Diabetes mellitus Diabetic neuropathy 3 para 3 History of cardiovascular stress test 04/2021 normal ekg response to lexiscan infusion and normal myocardial perfusion imaging History of echocardiogram 12/2020 EF 60% History of herpes zoster Hyperlipidemia Lichen sclerosus Osteoarthritis Plaque psoriasis Primary osteoarthritis of both hands Single kidney Surgical History (Updated 09/04/22 @ 04:07 by Rabia Jenkins MD) History of esophagogastroduodenoscopy (EGD) History of exploratory laparotomy To evaluate abnormalities of left kidney many years ago History of hysterectomy Partial, an ovary remains History of left nephrectomy Approximately 39 years ago, issues secondary to either childhood or developmental abnormalities History of renal stent left kidney secondary to issues that ultimately led to removal of left kidney Family History Mother Diabetes Sister Diabetes Stroke Brother Diabetes Clotting disorder Heart disease Cancer bladder cancer Brother Heart disease Hypertension Denies family history of Colon cancer Ovarian cancer Hyperlipidemia Breast cancer Bleeding disorder Uterine cancer Social History (Updated 09/04/22 @ 04:07 by Rabia Jenkins MD) Smoking and tobacco status: never smoked Alcohol intake: never Substance/Drug Use: never Marital status: Vitals/I&O/Wt Last Vital Signs Temp 98.1 F 09/03/22 22:36 Pulse 78 09/04/22 01:39 Resp 18 09/04/22 01:39 BP 165/92 09/04/22 01:39 Pulse Ox 97 09/04/22 01:39 O2 Del Method 09/04/22 01:14 Weight last 48 hrs Weight 87.543 kg Physical Exam Narrative: Patient is awake and alert. Able to provide history and answers questions appropriately. Normocephalic. Extraocular movements are intact. Moist mucous membranes. Neck is supple. Lungs are clear to auscultation bilaterally without any rales rhonchi or wheezes noted cardiovascular exam reveals a regular rate and rhythm. No notable murmurs gallops or rubs. Abdomen is soft, nontender, positive bowel sounds. Extremities no pitting edema or calf tenderness. Pulses are equal x4. Speech is clear, face symmetric, moves all extremities. Data 09/03/22 23:40 09/03/22 23:40 Other Labs: Radiology Impressions Chest X-Ray 09/03/22 23:48 IMPRESSION: 1. Mild atelectasis at the left lung base. This is new when compared to 08/29/2017. 2. No consolidative pulmonary infiltrate noted. Laboratory Results WBC 11.6 10^3/uL (4.0-10.0) H 09/03/22 23:40 RBC 4.75 10^6/uL (4.1-5.3) 09/03/22 23:40 Hgb 13.8 g/dL (11.5-15.3) 09/03/22 23:40 Hct 42.8 % (37.0-47.0) 09/03/22 23:40 MCV 90.1 fl (81-99) 09/03/22 23:40 MCH 29.1 pg (28.0-34.0) 09/03/22 23:40 MCHC 32.2 g/dL (30.0-36.0) 09/03/22 23:40 RDW 13.0 % (12.1-15.1) 09/03/22 23:40 Plt Count 351 10^3/cmm (130-400) 09/03/22 23:40 MPV 8.9 fL (7.4-10.4) 09/03/22 23:40 Neut % (Auto) 48.7 % 09/03/22 23:40 Lymph % (Auto) 41.4 % 09/03/22 23:40 [place] % (Auto) 6.2 % 09/03/22 23:40 Eos % (Auto) 2.2 % 09/03/22 23:40 Baso % (Auto) 0.7 % 09/03/22 23:40 Neut # (Auto) 5.65 10^3/uL (1.8-7.7) 09/03/22 23:40 Lymph # (Auto) 4.8 10^3/uL (0.8-4.8) 09/03/22 23:40 [place] # (Auto) 0.7 10^3/uL (0.2-0.9) 09/03/22 23:40 Eos # (Auto) 0.3 10^3/uL (0.0-0.8) 09/03/22 23:40 Baso # (Auto) 0.1 10^3/uL (0.0-0.1) 09/03/22 23:40 Nucleated RBC % (auto) 0 % 09/03/22:40 Nucleated RBCs # 0.0 /100WBC 09/03/22 23:40 D-Dimer 1.13 ug/mIFEU (0-0.59) H 09/03/22 23:40 Sodium 139 mmol/L (136-145) 09/03/22 23:40 Potassium 4.0 mmol/L (3.5-5.1) 09/03/22 23:40 Chloride 101 mmol/L (98-107) 09/03/22 23:40 Carbon Dioxide 26 mmol/L (22-29) 09/03/22 23:40 Anion Gap 16.0 (5-19) 09/03/22 23:40 BUN 10 mg/dL (6-20) 09/03/22 23:40 Creatinine 1.0 mg/dL (0.5-0.9) H 09/03/22 23:40 GFR Calculation 56.7 mL/min (90-130) L 09/03/22 23:40 Glucose 258 mg/dL (65-115) H 09/03/22 23:40 Calculated Osmolality 296 mOsm/kg (285-295) H 09/03/22 23:40 Calcium 9.1 mg/dL (8.5-10.5) 09/03/22 23:40 Total Bilirubin 0.2 mg/dL (0.15-1.2) 09/03/22 23:40 AST 15 U/L (0-32) 09/03/22 23:40 ALT 11 U/L (0-33) 09/03/22 23:40 Alkaline Phosphatase 72 U/L (35-105) 09/03/22 23:40 Troponin T Baseline 202 ng/L (0-10) H* 09/03/22 23:40 Troponin T 120 Minute 218.4 ng/L (0-10) H 09/04/22 01:20 Delta Troponin T 16.4 ABS# (0-10) H* 09/04/22 01:20 Total Protein 7.5 g/dL (6.6-8.7) 09/03/22 23:40 Albumin 3.6 g/dL (3.5-5.2) 09/03/22 23:40 Globulin 3.9 g/dL (1.3-4.6) 09/03/22 23:40 Influenza Type A Ag negative (Negative) 09/03/22 23:50 Influenza Type B Ag negative (Negative) 09/03/22 23:50 SARS-CoV-2 Ag (Rapid) negative (Negative) 09/03/22 23:50 A&P Assessment and plan (1) Non-ST elevation PA (NSTEMI): No history of coronary artery disease but has risk factors of known diabetes and hyperlipidemia. Also with evidence of hypertension today and has a known family history of coronary artery disease. She has both typical and atypical features and escalating symptoms today consistent with unstable angina. Had a negative stress test and echocardiogram in 2020. (2) Hypertension: Elevated blood pressure without a known diagnosis of hypertension, suspect essential, not on any chronic treatment (3) Elevated d-dimer: Presently of unclear significance. Vital signs are stable. No calf tenderness. Does not describe classic pleuritic pain although I am not sure what to make of her description of it hurting to breathe through her nose. (4) Hyperlipidemia: Chronic diagnosis though not on chronic treatment (5) Diabetes mellitus: Type II, insulin requiring, with neuropathy and circulatory issues (6) Single kidney: Status post left nephrectomy approximately 40 years ago for what sounds like either congenital or developmental abnormalities (7) CKD (chronic kidney disease): Appears to be chronic kidney disease stage II at this time, along with above-mentioned single kidney putting her at higher risk (8) Plaque psoriasis: Follows with Dr. Perez and is on Otezla and multiple topical options (9) Chronic constipation: On chronic Linzess therapy Plan Inpatient admission Continue heparin drip Plavix secondary to aspirin allergy Statin therapy Initiate beta-blockade Chronically on an LENNY inhibitor Telemetry monitoring Continue serial cardiac enzymes Echocardiogram Cardiology consultation, I have discussed with Dr. Sanjuanita Sanchez for possible cardiac catheterization today Check room air ABG Check lipid panel and hemoglobin A1c We will provide a lower dose of long-acting insulin along with sliding scale presently Continue home gabapentin Monitor renal function Continue home Otezla if available Continue home Linzess if available Continue home suppressive valacyclovir therapy Continue home PPI Continue home Flonase Can provide topical agents as needed during hospital stay Supportive care otherwise Findings, concerns and plans were discussed with patient and she was given an opportunity to ask questions Currently anticipate discharge home with outpatient follow-up to primary care provider and likely cardiology Full code Attestations Medical Necessity Statement*: Currently anticipate a stay greater than 2 midnights in a patient presenting with chest pain episodes occurring throughout the day and escalating over the 24-hour period. Initial troponin at 200 with +2-hour delta. She has risk factors for coronary artery disease as described. Currently being treated with heparin drip, cardiology consultation and other care as described above. At high risk of recurrent acute cardiac events and associated consequences without appropriate evaluation and treatment. Diagnoses Non-ST elevation PA (NSTEMI) I21.4 Hypertension I10 Elevated d-dimer R79.89 Hyperlipidemia E78.5 Diabetes mellitus E11.9 Single kidney Z90.5 CKD (chronic kidney disease) N18.9 Plaque psoriasis L40.0 Chronic constipation K59.09
--- NOTE | 2022-09-04 02:39 | USCV_ITS ---
Amna Stoner Age: 61 Gender: F : 1960 Exam Date: 09/04/2022 13:04 Ordering Phys: Rabia Jenkins MD Exam Location: Echo Lab Indication: Post Cath BP: 150 / 92 HR: 70 Rhythm: Sinus Technical Quality: MEASUREMENTS (Male / Female) Normal Values 2D ECHO LV Diastolic Diameter PLAX 4.2 cm 4.2 - 5.9 / 3.9 - 5.3 cm LV Systolic Diameter PLAX 3.3 cm IVS Diastolic Thickness 1.0 cm 0.6 - 1.0 / 0.6 - 0.9 cm IVS Systolic Thickness 1.7 cm LVPW Diastolic Thickness 1.3 cm 0.6 - 1.0 / 0.6 - 0.9 cm LVPW Systolic Thickness 1.4 cm LVOT Diameter 1.8 cm LV Ejection Fraction 2D Teich 25.7 % LV Ejection Fraction MOD 2C 70.3 % LV Ejection Fraction 2C AL 69.8 % LA Diameter 3.0 cm Aorta at Sinotubular Diameter 2.1 cm IVC Diameter 1.6 cm M-MODE Aortic Annulus Diameter 3.8 cm LA Ao Ratio MM 0.8 MV E Point Septal Separation 1.4 cm DOPPLER AV Peak Velocity 109.0 cm/s LVOT Peak Velocity 81.0 cm/s AV Area Cont Eq vti 2.2 cm squared AV Area Cont Eq pk 1.9 cm squared MV Area PHT 5.0 cm squared Mitral E to A Ratio 0.9 MV E' Velocity 42.0 cm/s Mitral E to MV E' Ratio 25.4 Mitral E to LV E' Lateral Ratio 24.6 Mitral E to LV E' Septal Ratio 27.1 TR Peak Velocity 129.0 cm/s TR Peak Gradient 6.7 mmHg TV Peak E Velocity 69.0 cm/s Right Atrial Pressure 3.0 mmHg Pulmonary Artery Systolic Pressu 9.7 mmHg RV Acceleration Time 0.1 s FINDINGS Left Ventricle Normal left ventricular size and systolic function, EF 69 %. Grade I/IV diastolic dysfunction (abnormal relaxation filling pattern), normal to mildly elevated filling pressures. Slightly dyskinetic inferobasal segment Right Ventricle Normal right ventricular size and systolic function. Right Atrium Possibly of normal size Left Atrium Possibly of normal size Mitral Valve Thickened mitral valve. Aortic Valve Thickened aortic valve. Tricuspid Valve No gross abnormalities noted Pulmonic Valve Pulmonic valve not well visualized. Pericardium Normal pericardium without effusion. Aorta Normal aortic annulus size. IVC Normal inferior vena cava. CONCLUSIONS Normal left ventricular size and systolic function, EF 69 %. Grade I/IV diastolic dysfunction (abnormal relaxation filling pattern), normal to mildly elevated filling pressures. Slightly dyskinetic inferobasal segment. Minimally thickened aortic and mitral valve. There is no pericardial effusion. There are no intracardiac masses. Compared to the study from 04/14/2021, the wall motion abnormality appears to be new Dr Aldo Ch MD [facility] (Electronically Signed) Final Date: 04 September 2022 18:54 S
[2022-09-04] MEDS: heparin 5,000 unit/mL INJ 1 mL IV (03:08)
[2022-09-04] MEDS: heparin drip 25,000 UNIT/500 ML PREMIX 25 UNIT IV (03:10)
[2022-09-04] MEDS: atorvastatin 40 mg Tablet PO ×2 (04:23→22:10)
--- NOTE | 2022-09-04 05:30 | ECG_ITS ---
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 Measurements Intervals [place] Rate: 69 P: 43 [place]: 199 QRS: 15 QRSD: 105 T: 16 QT: 400 QTc: 429 Interpretive Statements SINUS RHYTHM NONSPECIFIC ST & T-WAVE ABNORMALITY Compared to ECG 11/25/2020 13:44:41 T-wave abnormality now present Electronically Signed On 09-04-2022 11:32:32 CDT by Sawyer Gann M.D. [id number]
[2022-09-04 05:51] LABS: Basophils # 0.1 10^3/uL (0.0-0.1); Basophils % 0.6 %; Eosinophils # 0.4 10^3/uL (0.0-0.8); Hematocrit 40.2 % (37.0-47.0); Lymphocytes % 47.7 %; Mean Corpuscular HGB Conc 32.3 g/dL (30.0-36.0); Mean Corpuscular Volume 89.5 fl (81-99); Monocytes # 0.7 10^3/uL (0.2-0.9); Monocytes % 5.8 %; Neutrophils # 5.29 10^3/uL (1.8-7.7); Neutrophils % 42.3 %; Nucleated Red Blood Cells % 0 %; Platelet Count 314 10^3/cmm (130-400); Red Blood Count 4.49 10^6/uL (4.1-5.3); Red Cell Distribution Width 12.9 % (12.1-15.1); White Blood Count 12.5 10^3/uL (4.0-10.0)
[2022-09-04 05:55] LABS: Estmated Average Glucose 341; Hemoglobin A1C 13.5 % (4.0-6.0)
[2022-09-04 05:58] LABS: INR 0.98 (0.8-1.2)
[2022-09-04 06:05] LABS: Chol HDL Ratio 4.81 mg/dL (0.0-4.40); Cholesterol 178 mg/dL (0-200); HDL Cholesterol 37 mg/dL (60-100); LDL Cholesterol Calculated 115 mg/dL (50-129); LDL HDL Ratio 3.11 RATIO (0.00-3.22); Triglycerides 131 mg/dL (0-150)
[2022-09-04 06:12] LABS: Troponin 5 6HR 240.2 ng/L (0-10); Troponin 5 6HR Delta 38.2 ng/L (0-12)
[2022-09-04 06:27] LABS: Glucose Point of Care 157 mg/dL (70-110)
[2022-09-04 06:39] LABS: Partial Thromboplastin Time 161.1 SECONDS (23.9-36.7)
[2022-09-04 06:42] LABS: Anion Gap 14.5 (5-19); Blood Urea Nitrogen 10 mg/dL (6-20); Carbon Dioxide 24 mmol/L (22-29); Chloride 107 mmol/L (98-107); Glomerular Filtration Rate 73.4 mL/min (90-130); Glucose 176 mg/dL (65-115); Osmolality Calculated 297 mOsm/kg (285-295); Potassium 3.5 mmol/L (3.5-5.1); Sodium 142 mmol/L (136-145)
[2022-09-04 09:01] LABS: Partial Thromboplastin Time 49.8 SECONDS (23.9-36.7)
--- NOTE | 2022-09-04 09:03 | XACV_ITS ---
Exam Room: [facility] Ht: 165 cm Wt: 88 kg BSA: 2.04 m2 Gender: Female : 1960 Exam Priority: Routine Procedure(s): Procedure Description: Diagnostic procedure Procedure Description: PCI procedure Procedure Description: Coronary IVUS Procedure Description: Drug Eluting Coronary Stent Procedure Description: PTCA Procedure Description: Coronary Angiography Diagnostic Cath Status: Urgent Diagnostic Findings * Proximal Circumflex to Mid Circumflex: chronic total occlusion, MIMI: 0 flow. * Left Main has no disease. * Proximal Left Anterior Descending: severe 90% stenosis, MIMI: 3 flow. * Mid Right Coronary Artery: severe 90% stenosis, MIMI: 3 flow. * Coronary angiography shows right dominance. PCI Status: Urgent PCI Indication: NSTE - ACS Interventional Findings * INDICATION: We engaged RCA with JR4 guide catheter. IV heparin was administered to maintain anticoagulation. We used a 0.014 run-through guidewire to cross mid RCA stenosis and was put in distal vessel. We predilated the stenosis with 2.5 x 12 mm semicompliant balloon. This was followed by placement of 3.5 x 15 mm resolute [place] drug-eluting stent. We postdilated the stent stent with 3.75 x 8 mm NC balloon. At this time final angiogram was performed that showed excellent stent expansion, no residual stenosis and MIMI-3 flow. We then returned attention to LAD. We engaged the left main artery with XB 3.0 guide catheter. 0.014 run-through guidewire was used to cross proximal LAD stenosis. We predilated stenosis with 2.5 x 12 mm semicompliant balloon. We then placed 3.5 x 30 mm resolute Gu[place] drug-eluting stent. IVUS was used in an area of underexpansion was seen. We postdilated it with 3.75 x 8 mm NC balloon. At this time final angiogram was performed that showed excellent stent expansion, MIMI-3 flow and no residual stenosis. Guidewire and guide catheter were removed. Patient left the Retail Client Solutions Consultant in a stable condition.. * Proximal Left Anterior Descendin% stenosis treated with a MDT NC EUPHORA RX [id number] BALLOON, MDT R GUILLE 3.5X30 MICH, and MDT NC EUPHORA RX [id number] BALLOON. 0% residual stenosis, MIMI: 3 flow. * Mid Right Coronary Artery: 90% stenosis treated with a AB TREK 2.50X12 RX BALLOON, MDT R GUILLE 3.5X15 MICH, and MDT NC EUPHORA RX [id number] BALLOON. 0% residual stenosis, MIMI: 3 flow. Conclusions 1. Multivessel coronary artery disease. 2. 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 3. Will be medically managed. Patient underwent successful revascularization of mid RCA with MICH x1. Successful revascularization of proximal LAD with MICH x1.. 4. Proximal Left Anterior Descending was treated with a Balloon, Drug Eluting Stent, and Balloon. 5. Mid Right Coronary Artery was treated with a Balloon, Drug Eluting Stent, and Balloon. Recommendations * Transferred back to [facility]. * Dual antiplatelet therapy with aspirin and Plavix for at least 1 year. * High intensity statin therapy. * Order echocardiogram. * Outpatient cardiology follow-up in 4 weeks. Interventional RX Recommendation: PCI w/o planned CABG Diagnostic RX Recommendation: PCI w/o planned CABG Anticoagulation: Heparin Pressures Phase:Rest AO : 139 / 106 ( 123 ) @ 10:36:00 AM 162 / 79 ( 113 ) @ 10:41:00 AM 137 / 85 ( 112 ) @ 10:44:00 AM 129 / 73 ( 100 ) @ 10:50:00 AM 159 / 102 ( 130 ) @ 10:57:00 AM 150 / 105 ( 127 ) @ 11:07:00 AM 123 / 63 ( 91 ) @ 11:10:00 AM Clinical Evaluation EBL: 5mL-10mL Procedural Details Procedure Consent Obtained. Admit Source: In Patient. Pre-Procedure Time Out. Identified patient by full name and date of as verbalized by the patient/guarantor. Does the consent match the physician's order: Yes. Accurate & Complete Informed Consent: Yes. Inpatient/Outpatient History & Physical on Chart: Yes. If H&P is completed, is and addenduem needed: N/A; If yes, is the addendum complete: N/A. Visualize and Verify Site with Patient/Guarantor: N/A. Relevant Radiology Images available: N/A. Pre-op teaching completed and patient verbalized understanding. The risks, benefits, and alternatives of sedation and/or procedure were discussed by physician. The patient agrees to continue. Procedure started. [facility] Clinical Fraility Score: 3: Managing Well. Retail Client Solutions Consultant Indications: New Onset Angina. Chest Pain Symptom Assessment: Typical Angina Symptoms. Correct patient, site and procedure confirmed by cath team. Current diagnosis: NSTEMI. PERRLA. Strong, equal hand accounts receivable manager bilaterally. Lungs clear x 5 lobes. IV Site on Arrival: 20 gauge in the left anticubital. IV Fluids: 0.9% NaCl at KVO. 0 mL infused prior to general labor forklift operator. Pre Procedural Pulses: bilateral dorsalis pedis was 2+. Pre Procedural Pulses: right radial was 2+. Oxygen started at 2liters/min via nasal canula. right groin was prepped with chloroprep then draped in the usual sterile fashion. right radial was prepped with chloroprep then draped in the usual sterile fashion. Baseline sample Acquired. HR: 77 BPM. Physician notified. Physician arrived. Physician scrubbed in. Immediate Pre-Procedure Time Out. Correct Patient: Yes; Correct Procedure: Yes; Correct Site: Yes; Correct Patient Position: Yes; Correct Supplies: Yes; Dried Flammable Prep: Yes; Blood Products Available: N/A;. Lidocaine 1% infiltrated to the right radial. Arterial access obtained. A 5 sri lankan TIG catheter in over wire. Multiple views taken of left coronary artery. Catheter redirected to the RCA. Catheter removed over the exchange wire. 6 sri lankan JR 4 guide catheter was inserted over the wire. Runthrough guidewire was advanced through the guide catheter to lesion in the mid RCA. Balloon inserted to lesion in the mid RCA. Inflation number : 1 A AB TREK 2.50X12 RX BALLOON was prepped and advanced across the Mid RCA , then inflated to 12 AWA for 0:14 seconds. Inflation number: 2 The AB TREK 2.50X12 RX BALLOON was reinflated across the Mid RCA, to 12 AWA for 0:08 seconds. Results checked. Balloon out. Stent inserted to lesion in the mid RCA. Inflation Number : 3 A MDT R GUILLE 3.5X15 MICH -Lot Number# [id number] Exp 10/24/2024 was prepped and advanced across the Mid RCA. The stent was deployed at 12 AWA for 0:17 seconds. Stent balloon out over wire. Balloon inserted to lesion in the mid RCA. Inflation number : 4 A MDT NC EUPHORA RX [id number] BALLOON was prepped and advanced across the Mid RCA , then inflated to 12 AWA for 0:15 seconds. Inflation number: 5 The MDT NC EUPHORA RX [id number] BALLOON was reinflated across the Mid RCA, to 12 AWA for 0:10 seconds. Balloon out. Results checked. Results checked. Wire out. Guide catheter out. 6 sri lankan XB 3 guide catheter was inserted over the wire. Runthrough guidewire was advanced through the guide catheter to lesion in the prox LAD. Inflation number: 1 The AB TREK 2.8q00HAQ RX BALLOON was reinflated across the Prox LAD, to 8 AWA for 0:10 seconds. Inflation number: 2 The AB TREK 2.5x12MM RX BALLOON was reinflated across the Prox LAD, to 8 AWA for 0:11 seconds. Results checked. Balloon inserted to lesion in the prox LAD. Balloon out. Stent inserted to lesion in the prox LAD. Inflation Number : 3 A MDT R GUILLE 3.5X30 MICH -Lot Number# [id number] Exp 11/11/2023 was prepped and advanced across the Prox LAD. The stent was deployed at 12 AWA for 0:13 seconds. Results checked. Stent balloon out over wire. IVUS guidewire was advanced through the guide catheter to lesion in the prox LAD. IVUS run performed of Prox LAD. IVUS catheter out. Balloon inserted to lesion in the prox LAD. Inflation number : 4 A MDT NC EUPHORA RX [id number] BALLOON was prepped and advanced across the Prox LAD , then inflated to 16 AWA for 0:19 seconds. Inflation number: 5 The MDT NC EUPHORA RX 3.00N16XZ BALLOON was reinflated across the Prox LAD, to 16 AWA for 0:15 seconds. Inflation number: 6 The MDT NC EUPHORA RX [id number] BALLOON was reinflated across the Prox LAD, to 16 AWA for 0:11 seconds. Balloon out. Results checked. Wire out. Results checked. Guide catheter out. A TR Band was successful obtaining hemostatsis at the Right Radial artery insertion site. Post Procedure: Pulses reassessed and unchanged. PERRLA. Strong, equal hand accounts receivable manager bilaterally. No VTE prophylaxis required. Post-op diagnosis: Severe Multi Vessel CAD, S/P successful stenting of Prox LAD and Mid RCA. Medication's Wasted: Lidocaine 1% = 3 mL. Medication's Wasted: Heparin = 2000 u. Medication's Wasted: Nitro = 49.4 mg. Total IV fluids: 100 mL. PCI Indication: NSTE. Complications: none. Estimated blood loss: 5mL-10mL. Responsiveness - Normal response to verbal stimuli; alert and oriented, PERRLA. Airway - Unaffected, no intervention required; spontaneous ventilation. Circulation: W/N/L, pulses unchanged. Nausea/Vomiting: No. Procedure completed. Patient transferred by wheelchair to 1st floor. Vital chart was stopped. Access Site Site: Right Radial artery Sheath Size: 6 Fr Hemostasis Method: TR Band Hemostasis Success: Successful Procedure Medications Start: 9:32 AM Stop: 9:32 AM Medication: Versed Amount: 1 mg Route: I.V. Start: 9:32 AM Stop: 9:32 AM Medication: Fentanyl Amount: 50 mcg Route: I.V. Start: 9:32 AM Stop: 9:32 AM Medication: Nitrogylcerin Amount: 200 mcg Route: I.A. Start: 9:30 AM Stop: 9:30 AM Medication: Plavix Amount: 600 mg Route: P.O. Start: 9:36 AM Stop: 9:36 AM Medication: Heparin Amount: 5000 units Route: I.V. Start: 9:40 AM Stop: 9:40 AM Medication: Heparin Amount: 3000 units Route: I.V. Start: 9:49 AM Stop: 9:49 AM Medication: Nitrogylcerin Amount: 200 mcg Route: I.C. Start: 9:53 AM Stop: 9:53 AM Medication: Heparin Amount: 1000 units Route: I.V. Start: 9:56 AM Stop: 9:56 AM Medication: Aggrastat 12.5 mg/250 mL Amount: 44 ml Route: I.V. bolus Start: 9:56 AM Stop: 9:56 AM Medication: Aggrastat 12.5 mg/250 mL Amount: 15.8 ml/hr Route: I.V. drip Start: 10:02 AM Stop: 10:02 AM Medication: Fentanyl Amount: 50 mcg Route: I.V. Start: 10:02 AM Stop: 10:02 AM Medication: Versed Amount: 1 mg Route: I.V. Start: 10:09 AM Stop: 10:09 AM Medication: Nitrogylcerin Amount: 200 mcg Route: I.C. I, the attending physician, have reviewed and verified all procedure medications. Yes, all medications given per verbal order History/Risk Factors Hypertension: Yes Dyslipidemia: Yes Peripheral Arterial Disease (PAD): No Myocardial Infarction ([place]): No Obesity: Yes Renal Disease: No Tobacco Use: Current/Recent(w/in 1 year) Prior Interventions PCI: No CABG: No Valve Surgery: No Report Signatures Finalized by Sawyer Gann MD on 09/10/2022 09:22 AM
--- NOTE | 2022-09-04 09:11 | P.CONIM_ITS ---
Providers/Reason For Consult Consulting Physician/Specialty*: Sawyer Gann MD/ Cardiology Reason for Consult*: NSTEMI Requesting Physician: Dr Jeknins Attending Physician: Mimi Coronado MD Primary Care Provider: Horacio Frazier MD History of Present Illness History of Present Illness Amna Stoner is a 61 year old female with past medical history of diabetes, hypertension who presented to hospital with 1 day of on and off chest discomfort episodes. According to patient on Sunday night she woke up with left arm pain. It was associated with substernal chest discomfort. It kept coming back and forth throughout the day yesterday. Tonight pain got worse and she came to the hospital. EKG sinus rhythm with non-specific ST-T wave changes. Initial troponin was 202 that trended up to 240 at 6 hours. Review of Systems Const: Reports: fatigue; Denies: fever(s) or chills ENMT: Reports: other (Cold symptoms) Card: Denies: edema or dyspnea on exertion Resp: Reports: productive cough; Denies: pain on inspiration GI: Reports: constipation (Chronic problem, takes Linzess); Denies: nausea, vomiting or hematochezia : Denies: difficulty voiding Musc: Reports: other (Arthritis pain) Skin/Breast: Reports: other (Chronic skin issues) Neuro: Denies: weakness in extremities, confusion or Slurred speech present Brian/Lymph: Denies: easy bruising or easy bleeding Medications/Allergies Home Medications Medication Instructions Recorded Confirmed Last Taken Type clobetasol 0.05 % topical cream 1 applic topical BID 2 weeks #45 06/23/20 09/04/22 11/24/20 Rx (Temovate) grams valacyclovir 500 mg tablet 500 mg PO DAILY #90 tabs 08/01/20 09/04/22 11/24/20 Rx (Valtrex) gabapentin 600 mg tablet 600 mg PO TID #90 tabs 08/30/20 09/04/22 11/24/20 Rx linaclotide 145 mcg capsule 145 mcg PO DAILY #30 caps 09/27/20 09/04/22 Unknown Rx (Linzess) diclofenac sodium 1 % topical gel 4 g topical QID #100 grams 11/25/20 09/04/22 Unknown Rx (Voltaren) clindamycin phosphate 1 % lotion 1 applic topical BID #60 mL 02/21/21 09/04/22 Unknown Rx mometasone 0.1 % topical solution 1 applic topical DAILY #60 mL 02/21/21 09/04/22 Unknown Rx fluticasone propionate 50 1 spray intranasal Q12H 90 days 08/08/21 09/04/22 Unknown Rx mcg/actuation nasal #48 grams spray,suspension (Flonase Allergy Relief) dulaglutide 3 mg/0.5 mL 3 mg (0.5 mL) SUBCUT .Weekly #2 mL 11/17/21 09/04/22 08/30/22 21:00 Rx subcutaneous pen injector (Trulicity) duloxetine 30 mg capsule,delayed 90 mg PO DAILY 30 days #90 caps 11/25/21 09/04/22 Unknown Rx release insulin degludec 200 unit/mL (3 70 unit (0.35 mL) SUBCUT .at 12/07/21 09/04/22 Unknown Rx mL) subcutaneous pen (Tresiba bedtime 90 days #9 mL FlexTouch U-200 insulin) fluocinolone 0.01 % scalp oil and 1 ea topical DAILY #118.28 mL 01/02/22 09/04/22 Unknown Rx shower cap flash glucose sensor (FreeStyle #1 ea 01/23/22 09/04/22 Unknown Rx Oneyda 14 Day Sensor kit) pen needle, diabetic 31 gauge x #100 ea 02/09/22 09/04/22 Unknown Rx 1/4 (1st Tier Unifine Pentips) apremilast 30 mg tablet (Otezla) 30 mg PO BID #60 tabs 03/24/22 09/04/22 Unknown Rx ciclopirox 1 % shampoo 10 ml topical ONCE #120 mL 05/24/22 09/04/22 Unknown Rx mupirocin 2 % topical ointment 1 applic topical BID #22 grams 05/24/22 09/04/22 Unknown Rx lisinopril 20 mg tablet 20 mg PO DAILY 09/04/22 09/04/22 Unknown History pantoprazole 40 mg tablet,delayed 40 mg PO DAILY 09/04/22 09/04/22 Unknown Hi story release Allergies Allergy/AdvReac Type Severity Reaction Status Date / Time aspirin Allergy Unknown Verified 05/24/22 15:17 fluconazole [From Diflucan] Allergy ALGY-Rash Verified 05/24/22 15:17 Penicillins Allergy Unknown Verified 05/24/22 15:17 pregabalin [From Lyrica] Allergy Unknown Verified 05/24/22 15:17 Sulfa (Sulfonamide Allergy Unknown Verified 05/24/22 15:17 Antibiotics) sulfamethoxazole Allergy Unknown Verified 05/24/22 15:17 [From Bactrim] trimethoprim [From Bactrim] Allergy Unknown Verified 05/24/22 15:17 Current Medications Generic Name Dose Route Start Last Admin Trade Name Freq PRN Reason Stop Dose Admin Atorvastatin Calcium 40 mg 09/04/22 04:00 09/04/22 04:23 Atorvastatin 40 Mg Tablet PO 40 mg BEDTIME NICHOLAS Administration Heparin Sodium (Porcine) 0 unit 09/04/22 02:24 09/04/22 03:08 Heparin 5,000 Unit/Ml Inj 1 Ml IV 4,400 unit PRN PRN Administration Heparin weight-base protocol Protocol Heparin Sodium/Sodium Chloride 25,000 unit in 500 mls @ 0 mls/hr 09/04/22 02:30 09/04/22 06:47 Heparin Drip IV 0 unit/kg/hr .Q0M NICHOLAS 0 mls/hr Titration Protocol Per Protocol PFSH Acute PFSH: Medical History Chronic constipation CKD (chronic kidney disease) Diabetes mellitus Diabetic neuropathy 3 para 3 History of cardiovascular stress test 04/2021 normal ekg response to lexiscan infusion and normal myocardial perf usion imaging History of echocardiogram 12/2020 EF 60% History of herpes zoster Hyperlipidemia Lichen sclerosus Osteoarthritis Plaque psoriasis Primary osteoarthritis of both hands Single kidney Surgical History History of esophagogastroduodenoscopy (EGD) History of exploratory laparotomy To evaluate abnormalities of left kidney many years ago History of hysterectomy Partial, an ovary remains History of left nephrectomy Approximately 39 years ago, issues secondary to either childhood or developmental abnormalities History of renal stent left kidney secondary to issues that ultimately led to removal of left kidney Family History Mother Diabetes Sister Diabetes Stroke Brother Diabetes Clotting disorder Heart disease Cancer bladder cancer Brother Heart disease Hypertension Denies family history of Colon cancer Ovarian cancer Hyperlipidemia Breast cancer Bleeding disorder Uterine cancer Social History Smoking and tobacco status: never smoked Alcohol intake: never Marital status: Vitals/I&O/Wt Last Vital Signs Temp 98.8 F 09/04/22 07:54 Pulse 72 09/04/22 07:54 Resp 20 H 09/04/22 07:54 BP 147/81 09/04/22 07:54 Pulse Ox 97 09/04/22 07:54 O2 Del Method 09/04/22 07:54 09/03/22 09/04/22 09/04/22 22:59 06:59 14:59 Intake Total 90.417 / 90.417 Balance 90.417 / 90.417 Weight last 48 hrs Weight 194 lb 3.2 oz Weight 193 lb Physical Exam Narrative: GENERAL: Patient is alert, awake and oriented x3. [] NECK: No jugular vein distension. [] HEENT: No cyanosis. No icterus. No pallor. [] HEART: Regular S1 and S2. No murmur, rub or gallop. [] LUNGS: Clear to auscultate bilaterally. [] CENTRAL NERVOUS SYSTEM: Grossly nonfocal. [] EXTREMITIES: Lower extremities with 1+ edema bilaterally. Pulses palpable in the lower extremities, both dorsalis pedis and posterior tibial. [] Data 09/04/22 05:32 09/04/22 05:32 A&P Assessment and plan (1) Non-ST elevation [place] (NSTEMI): (2) Hypertension: (3) CKD (chronic kidney disease): (4) Diabetes mellitus: (5) Hyperlipidemia: Plan Patient has presented with non-ST elevation [place]. We will proceed with coronary angiogram with possible percutaneous coronary intervention. Risks and benefits of the procedure have been discussed with the patient. She understands the risks and benefits and wants to proceed. Keep n.p.o. for now. We will load her with Plavix. She has documented aspirin allergy however says that it was as a child and it was not a severe reaction. We will give a trial if needs PCI ECHO ordered. Continue heparin Thank you for involving us with care of this patient. We will continue to follow. Please call with questions. Consult Attestations Medical Necessity Statement: Care expected to cross 2 midnights. Coding Level of Care Code Acute Code for Chg Fwd Diagnoses Non-ST elevation [place] (NSTEMI) I21.4 Hypertension I10 CKD (chronic kidney disease) N18.9 Diabetes mellitus E11.9 Hyperlipidemia E78.5
--- NOTE | 2022-09-04 09:23 | W.PM.OPSUD ---
Surgery/Procedure H&P Update DATE OF PROCEDURE: September 04, 2022 DATE H&P PERFORMED: 09/04/22 H&P UPDATE INFORMATION: I have reviewed H&P completed within last 30 days, I have examined patient prior to procedure and No changes to prior documentation PREOP DIAGNOSIS: NSTEMI PRIMARY INDICATION FOR PROCEDURE: NSTEMI PLANNED PROCEDURE: Left heart cath with possible percutaneous coronary intervention PATIENT REASSESSED PRIOR TO SEDATION, WITH NO CHANGE NOTED: Yes PHYSICAL EXAM: alert, oriented x 3, clear to auscultation bilaterally and regular rate & rhythm AIRWAY EVAL/ANESTHESIA PLAN: normal airway, ASA III, Local Anesthesia, Risks, benefits & alternatives of sedation and/or procedure discussed and Patient agrees to continue as planned ADDITIONAL INFORMATION: Moderate sedation
--- NOTE | 2022-09-04 09:24 | PC.NURSE ---
to maintenance shop laborer via w/c at this time
[2022-09-04] MEDS: sodium chloride 0.9% 1,000 ML 100 ML IV (10:30)
[2022-09-04] MEDS: duloxetine 30 mg Capsule 90 MG PO (11:07)
[2022-09-04] MEDS: valACYclovir 1,000 mg Tablet 500 MG PO (11:08)
[2022-09-04] MEDS: gabapentin 300 mg Capsule 600 MG PO ×3 (11:09→22:11)
[2022-09-04] MEDS: pantoprazole DR 40 mg Tablet PO (11:09)
[2022-09-04] MEDS: fluticasone nasal spray 16gm Btl 1 SPRAY INTRANASAL ×2 (11:10→22:10)
--- NOTE | 2022-09-04 11:17 | PC.NURSE ---
received from cardiac woods laborer at 1030 via w/c.report received.pt is drowsy,but easily awakened.alert and oriented x 3.sr on monitor.right wrist with tr band on and inflated.right hand is warm to touch and with brisk capillary refill.no hematoma noted.palpable radial pulse noted distal to tr band.instructed in activity restrictions s/p radial artery procedure and instructed to notify staff for bleeding,pain,sob,numbness..or for any concerns at all.pt verb understanding of instructions
[2022-09-04] MEDS: metoprolol tartrate 25 mg Tablet PO ×2 (11:29→22:11)
[2022-09-04] MEDS: lisinopril 20 mg Tablet PO (11:30)
[2022-09-04 12:03] LABS: Glucose Point of Care 209 mg/dL (70-110)
[2022-09-04] MEDS: insulin lispro 100 unit/1 mL SUBCUT ×3 (12:10→22:43)
--- NOTE | 2022-09-04 13:23 | PM.MISC ---
Miscellaneous Note Note: Patient seen this morning Patient is chest pain-free Pleasant and cooperative Hemodynamically stable N.p.o. Euvolemic No active chest pain at this point Currently on room air Status post PCI with 1 stent to mid RCA and 1 stent proximal LAD: Total 2 stent
[2022-09-04] MEDS: chlorthalidone 25 mg Tablet PO (14:23)
[2022-09-04 16:46] LABS: Glucose Point of Care 184 mg/dL (70-110)
--- NOTE | 2022-09-04 19:27 | PC.NURSE ---
pt developed large bruise on left upper arm from bp cuff inflation post angiogram...and noted prolonged bleeding from finger stick from accucheck.dr marie notified by amira hightower (cath lab technologist).dr marie ordered to stop aggrastat infusion at 1300.(instead of the ordered dc at 1430)
[2022-09-04 21:37] LABS: Glucose Point of Care 150 mg/dL (70-110)
[2022-09-04] MEDS: insulin glargine 100 units/1 mL 40 UNIT SUBCUT (22:43)
[2022-09-05] VITALS: BP 127/72; PULSE 69; RESP 18; TEMP 37.5
[2022-09-05 02:14] LABS: Glucose Point of Care 85 mg/dL (70-110)
[2022-09-05 05:01] LABS: Basophils # 0.1 10^3/uL (0.0-0.1); Basophils % 0.5 %; Eosinophils # 0.3 10^3/uL (0.0-0.8); Eosinophils % 2.3 %; Hematocrit 37.1 % (37.0-47.0); Hemoglobin 11.8 g/dL (11.5-15.3); Lymphocytes # 3.3 10^3/uL (0.8-4.8); Lymphocytes % 27.7 %; Mean Corpuscular HGB Conc 31.8 g/dL (30.0-36.0); Mean Corpuscular Hemoglobin 28.8 pg (28.0-34.0); Mean Corpuscular Volume 90.5 fl (81-99); Monocytes # 0.9 10^3/uL (0.2-0.9); Monocytes % 7.6 %; Neutrophils # 7.21 10^3/uL (1.8-7.7); Neutrophils % 61.3 %; Nucleated Red Blood Cells % 0 %; Platelet Count 307 10^3/cmm (130-400); Red Cell Distribution Width 13.2 % (12.1-15.1); White Blood Count 11.8 10^3/uL (4.0-10.0)
[2022-09-05 05:29] LABS: Anion Gap 14.1 (5-19); Blood Urea Nitrogen 11 mg/dL (6-20); Calcium 8.7 mg/dL (8.5-10.5); Carbon Dioxide 26 mmol/L (22-29); Chloride 106 mmol/L (98-107); Glomerular Filtration Rate 56.7 mL/min (90-130); Glucose 138 mg/dL (65-115); Magnesium 1.9 mg/dL (1.7-2.3); Osmolality Calculated 296 mOsm/kg (285-295); Potassium 4.1 mmol/L (3.5-5.1); Sodium 142 mmol/L (136-145)
[2022-09-05 06:00] VITALS: PULSE 77
--- NOTE | 2022-09-05 06:23 | P.DS_ITS ---
Discharge Providers Date of Admission: 09/04/22 01:04 Date of Discharge: September 05, 2022 Attending Provider at Admission: Rabia Jenkins MD Attending Provider at Discharge: Mimi Coronado MD Primary Care Provider: Horacio Frazier MD Diagnoses at Discharge Discharge Diagnosis (1) Non-ST elevation WI (NSTEMI): Status: Acute (2) Hypertension: Status: Acute (3) CKD (chronic kidney disease): Status: Chronic (4) Diabetes mellitus: Status: Chronic (5) Hyperlipidemia: Status: Chronic Reason for Visit Reason for Visit: Chest Pain\Left Arm Pain Hospital Course Hospital Course 61-year female who was admitted for management and evaluation of unstable angina she was diagnosed with NSTEMI, ACS protocol was initiated at admission, she remained chest pain-free, cardiology was consulted, she went for coronary angiogram, status post 1 stent in mid RCA and 1 stent in proximal LAD, patient remained hemodynamically stable, no postoperative complications. Patient carries a history of hypertension, dyslipidemia and diabetes. Risk factor modification, patient was counseled, she will require aspirin and Plavix for 1 year, echo shows wall motion abnormality and preserved action fraction with diastolic dysfunction. Physical Exam Narrative: Pleasant and cooperative GCS 15 Nonfocal neuro exam Awake and alert Abdomen soft Discharge Data Studies Completed and Pending Completed Studies During Hospitalization Category Date Time Status XR chest 1V portable [id number] Stat Exams 09/03/22 23:48 Completed CV. echo complete* [id number] Routine Ultrasound 09/04/22 02:39 Completed Pending at discharge Category Date Time Status CHILD DEVELOPMENT SPECIALIST request for service Routine Exams 09/04/22 09:03 Taken Cardiac Stress Test MIBI [Sestamibi Stress Test Request Exams 09/04/22 02:41 Stop Req ] Routine Radiology Impressions Chest X-Ray 09/03/22 23:48 IMPRESSION: 1. Mild atelectasis at the left lung base. This is new when compared to 08/29/2017. 2. No consolidative pulmonary infiltrate noted. Laboratory Results WBC 11.8 10^3/uL (4.0-10.0) H 09/05/22 04:18 RBC 4.10 10^6/uL (4.1-5.3) 09/05/22 04:18 Hgb 11.8 g/dL (11.5-15.3) 09/05/22 04:18 Hct 37.1 % (37.0-47.0) 09/05/22 04:18 MCV 90.5 fl (81-99) 09/05/22 04:18 MCH 28.8 pg (28.0-34.0) 09/05/22 04:18 MCHC 31.8 g/dL (30.0-36.0) 09/05/22 04:18 RDW 13.2 % (12.1-15.1) 09/05/22 04:18 Plt Count 307 10^3/cmm (130-400) 09/05/22 04:18 MPV 9.0 fL (7.4-10.4) 09/05/22 04:18 Neut % (Auto) 61.3 % 09/05/22 04:18 Lymph % (Auto) 27.7 % 09/05/22 04:18 [place] % (Auto) 7.6 % 09/05/22 04:18 Eos % (Auto) 2.3 % 09/05/22 04:18 Baso % (Auto) 0.5 % 09/05/22 04:18 Neut # (Auto) 7.21 10^3/uL (1.8-7.7) 09/05/22 04:18 Lymph # (Auto) 3.3 10^3/uL (0.8-4.8) 09/05/22 04:18 [place] # (Auto) 0.9 10^3/uL (0.2-0.9) 09/05/22 04:18 Eos # (Auto) 0.3 10^3/uL (0.0-0.8) 09/05/22 04:18 Baso # (Auto) 0.1 10^3/uL (0.0-0.1) 09/05/22 04:18 Nucleated RBC % (auto) 0 % 09/05/22 04:18 Nucleated RBCs # 0.0 /100WBC 09/05/22 04:18 PT 13.20 SECONDS (12.1-14.9) 09/04/22 05:32 INR 0.98 (0.8-1.2) 09/04/22 05:32 APTT 49.8 SECONDS (23.9-36.7) H D 09/04/22 08:38 D-Dimer 1.13 ug/mIFEU (0-0.59) H 09/03/22 23:40 Sodium 142 mmol/L (136-145) 09/05/22 04:18 Potassium 4.1 mmol/L (3.5-5.1) 09/05/22 04:18 Chloride 106 mmol/L (98-107) 09/05/22 04:18 Carbon Dioxide 26 mmol/L (22-29) 09/05/22 04:18 Anion Gap 14.1 (5-19) 09/05/22 04:18 BUN 11 mg/dL (6-20) 09/05/22 04:18 Creatinine 1.0 mg/dL (0.5-0.9) H 09/05/22 04:18 GFR Calculation 56.7 mL/min (90-130) L 09/05/22 04:18 Glucose 138 mg/dL (65-115) H 09/05/22 04:18 POC Glucose 85 mg/dL (70-110) 09/05/22 02:09 Estimat Average Glucose 341 09/04/22 05:32 Hemoglobin A1c 13.5 % (4.0-6.0) H 09/04/22 05:32 Calculated Osmolality 296 mOsm/kg (285-295) H 09/05/22 04:18 Calcium 8.7 mg/dL (8.5-10.5) 09/05/22 04:18 Magnesium 1.9 mg/dL (1.7-2.3) 09/05/22 04:18 Total Bilirubin 0.2 mg/dL (0.15-1.2) 09/03/22 23:40 AST 15 U/L (0-32) 09/03/22 23:40 ALT 11 U/L (0-33) 09/03/22 23:40 Alkaline Phosphatase 72 U/L (35-105) 09/03/22 23:40 Troponin T Baseline 202 ng/L (0-10) H* 09/03/22 23:40 Troponin T 120 Minute 218.4 ng/L (0-10) H 09/04/22 01:20 Delta Troponin T 16.4 ABS# (0-10) H* 09/04/22 01:20 Troponin T Hi Sens 6Hr 240.2 ng/L (0-10) H 09/04/22 05:32 Troponin T Hi Sens 6Hr Delta 38.2 ng/L (0-12) H* 09/04/22 05:32 Total Protein 7.5 g/dL (6.6-8.7) 09/03/22 23:40 Albumin 3.6 g/dL (3.5-5.2) 09/03/22 23:40 Globulin 3.9 g/dL (1.3-4.6) 09/03/22 23:40 Triglycerides 131 mg/dL (0-150) 09/04/22 05:32 Cholesterol 178 mg/dL (0-200) 09/04/22 05:32 LDL Cholesterol, Calc 115 mg/dL (50-129) 09/04/22 05:32 HDL Cholesterol 37 mg/dL (60-100) L 09/04/22 05:32 LDL/HDL Ratio 3.11 RATIO (0.00-3.22) 09/04/22 05:32 Cholesterol/HDL Ratio 4.81 mg/dL (0.0-4.40) H 09/04/22 05:32 Influenza Type A Ag negative (Negative) 09/03/22 23:50 Influenza Type B Ag negative (Negative) 09/03/22 23:50 SARS-CoV-2 Ag (Rapid) negative (Negative) 09/03/22 23:50 Vitals Last Vital Signs Temp 99.5 F 09/05/22 00:00 Pulse 69 09/05/22 00:00 Resp 18 09/05/22 00:00 BP 127/72 09/05/22 00:00 Pulse Ox 96 09/04/22 16:00 O2 Del Method 09/04/22 16:00 Discharge Plan Discharge Patient Disposition: Home Condition: Stable Prescriptions: New atorvastatin 40 mg Tablet 40 mg PO BEDTIME Qty: 60 3RF clopidogrel 75 mg Tablet 75 mg PO DAILY Qty: 60 3RF aspirin 81 mg Tablet,Delayed Release (Dr/Ec) 81 mg PO DAILY Qty: 60 3RF Continued clobetasol [Temovate] 0.05 % cream 1 applic topical BID 14 Days Qty: 45 0RF Trulicity 3 mg/0.5 mL pen injector 3 mg SUBCUT .Weekly Qty: 2 6RF fluocinolone and shower cap 0.01 % oil 1 ea topical DAILY Qty: 118.28 2RF Rx Instructions: Apply to scalp and leave on 4 hours or cover with shower cap overnight, then wash. mupirocin 2 % ointment 1 applic TOPICAL BID Qty: 22 1RF Rx Instructions: Apply BID to open areas on face until healed ciclopirox 1 % shampoo 10 ml topical ONCE Qty: 120 6RF Rx Instructions: Apply to scalp 2-3 times weekly. Allow to sit 5 minutes, then rinse. valacyclovir [Valtrex] 500 mg tablet 500 mg PO DAILY Qty: 90 3RF gabapentin 600 mg tablet 600 mg PO TID Qty: 90 3RF Linzess 145 mcg capsule 145 mcg PO DAILY Qty: 30 3RF clindamycin phosphate 1 % lotion 1 applic TOPICAL BID Qty: 60 1RF Rx Instructions: Apply thin film to face and hairline twice daily mometasone 0.1 % solution 1 applic TOPICAL DAILY Qty: 60 2RF Rx Instructions: Apply 3-5 drops to posterior scalp nightly as needed for itching fluticasone propionate [Flonase Allergy Relief] 50 mcg/actuation spray,suspension 1 spray intranasal Q12H 90 Days Qty: 48 0RF Rx Instructions: administer into each nostril duloxetine 30 mg capsule,delayed release(DR/EC) 90 mg PO DAILY MDD 3 30 Days Qty: 90 6RF Tresiba FlexTouch U-200 200 unit/mL (3 mL) insulin pen 70 unit SUBCUT .at bedtime 90 Days Qty: 9 8RF Rx Instructions: 90 day supply (DME) FreeStyle Oneyda 14 Day Sensor Kit See Rx Instructions .Route Qty: 1 3RF Rx Instructions: replace sensor every 14 days (DME) pen needle, diabetic [1st Tier Unifine Pentips] 31 gauge x 1/4 needle See Rx Instructions .ROUTE .MEDSUPPLY Qty: 100 12RF Rx Instructions: As directed Otezla 30 mg tablet 30 mg PO BID Qty: 60 4RF diclofenac sodium [Voltaren] 1 % gel 4 g topical QID Qty: 100 0RF Rx Instructions: apply to single knee, ankle, foot; for foot includes sole/toes/top of foot lisinopril 20 mg tablet 20 mg PO DAILY pantoprazole 40 mg tablet,delayed release (DR/EC) 40 mg PO DAILY Discharge Orders: Discharge Order (Routine); Ordered 09/05/22 Ordered By: Mimi Coronado Referrals: Horacio Frazier MD [Primary Care Provider] - Bri Hancock FNP [Nurse Practitioner] - 7-10 days Discharge Diet: Cardiac and Low Salt Discharge Activity: Increase activity as tolerated Patient Instructions: Opioid Safety Discharge Attestations Time Spent in Discharge Care*: less than 30 min Quality Metrics Clinical Quality Measures [ No reported AMI, CVA or VTE this stay] Coding Level of Care Code Acute Code for Chg Fwd Diagnoses Non-ST elevation WI (NSTEMI) I21.4 Hypertension I10 CKD (chronic kidney disease) N18.9 Diabetes mellitus E11.9 Hyperlipidemia E78.5
[2022-09-05 06:47] LABS: Glucose Point of Care 110 mg/dL (70-110)
[2022-09-05 07:31] VITALS: BP 117/66; PULSE 79; RESP 27
[2022-09-05 08:00] VITALS: BP 114/72; PULSE 79; RESP 18; TEMP 36.6; O2SAT 97
--- NOTE | 2022-09-05 08:10 | PM.PN ---
Subjective Subjective: Patient is doing well. no chest pain or shortness of breath. Vitals/I&O/Wt Last Vital Signs Temp 99.5 F 09/05/22 00:00 Pulse 79 09/05/22 07:31 Resp 27 H 09/05/22 07:31 BP 117/66 09/05/22 07:31 Pulse Ox 96 09/04/22 16:00 O2 Del Method 09/04/22 16:00 09/04/22 09/05/22 09/05/22 22:59 06:59 14:59 Intake Total 960 / 960 200 / 1160 Output Total 500 / 500 Balance 460 / 460 200 / 660 Weight last 48 hrs Weight 193 lb 6 oz Weight 194 lb 3.2 oz Weight 193 lb Physical Exam Narrative: GENERAL: Patient is alert, awake and oriented x3. [] NECK: No jugular vein distension. [] HEENT: No cyanosis. No icterus. No pallor. [] HEART: Regular S1 and S2. No murmur, rub or gallop. [] LUNGS: Clear to auscultate bilaterally. [] CENTRAL NERVOUS SYSTEM: Grossly nonfocal. [] EXTREMITIES: Lower extremities with 1+ edema bilaterally. Pulses palpable in the lower extremities, both dorsalis pedis and posterior tibial. [] Data 09/05/22 04:18 09/05/22 04:18 A&P Assessment and plan (1) Non-ST elevation DC (NSTEMI): (2) Hypertension: (3) CKD (chronic kidney disease): (4) Diabetes mellitus: (5) Hyperlipidemia: Plan Patient underwent successful revascularization of RCA and LAD with MICH x2. She was started on aspirin and is tolerating it well. Continue aspirin and Plavix for at least 1 year ECHO is normal Thank you for involving us with care of this patient. Patient is stable to be discharged from cardiology standpoint. Please call with questions. Attestations Medical Necessity Statement*: Care expected to cross 2 midnights. Coding Level of Care Code Acute Code for [facility] Diagnoses Non-ST elevation DC (NSTEMI) I21.4 Hypertension I10 CKD (chronic kidney disease) N18.9 Diabetes mellitus E11.9 Hyperlipidemia E78.5
[2022-09-05 09:01] VITALS: BP 122/73
[2022-09-05] MEDS: pantoprazole DR 40 mg Tablet PO (09:02)
[2022-09-05] MEDS: aspirin 81 mg EC Tablet PO (09:02)
[2022-09-05] MEDS: gabapentin 300 mg Capsule 600 MG PO (09:02)
[2022-09-05] MEDS: clopidogrel 75 mg Tablet PO (09:02)
[2022-09-05] MEDS: chlorthalidone 25 mg Tablet PO (09:03)
[2022-09-05] MEDS: fluticasone nasal spray 16gm Btl 1 SPRAY INTRANASAL (09:04)
[2022-09-05] MEDS: duloxetine 30 mg Capsule 90 MG PO (09:04)
[2022-09-05] MEDS: valACYclovir 1,000 mg Tablet 500 MG PO (09:06)
[2022-09-05] MEDS: metoprolol tartrate 25 mg Tablet PO (09:08)
[2022-09-05] MEDS: lisinopril 20 mg Tablet PO (09:09)
[2022-09-05] MEDS: amlodipine 10 mg Tablet PO (09:09)
--- NOTE | 2022-09-05 10:07 | PC.CHAP ---
Pastoral Care Encounter/Spiritual Assessment Type of Contact [] Declined market research specialist visit [] Patient/Family/Request visit [] Outpatient visit [] Follow-up visit [] Physician referral [] Code/Alert [x] Routine visit [] Staff referral [] Actively dying [] Patient sleeping [x] Family support [] [] Out of room [] Palliative care [] [] Receiving care in room [] Pre-surgical visit [] Trauma [] Long length of stay [] ICU visit [] Other: Relational/Emotional Strength [x] Patient feels connected with others/family/visitors/staff [] Distress [] Loneliness/isolation [] Abandonment Spirituality of Patient [x] Person of Molly [] Attends Presybeterian of their Molly [x] Believes in Prayer [] Reads Bible or Church materials [] There are Spiritual issues to be addressed Cashier Supervisor Interventions [x] Prayer [] Active listening [] Non-anxious presence [] Spiritual/emotional support [] Crisis/trauma care [] Spiritual counseling [] Bereavement support [] Provided bereavement packet [] Provided Bible/devotional materials [] Provided toy/stuffed animal, coloring book to patient or family member [] Provided Communion [] Anointing/[place] [] Salvation [x] Completed spiritual assessment [] Other: Impact on Illness or Injury [] Angry [] Fearful [] Anxious [] Often cries [] Exhaustion [] Unable to work [] Unable to attend buddhist [] Unable to walk/stand [] Unable to read [] Unable to drive [] Unable to eat/drink [] Unable to sleep [] Unable to be with family [] Patient intubated [] Other: Summary Time spent with patient 10 min
[2022-09-05 11:44] LABS: Glucose Point of Care 281 mg/dL (70-110)
[2022-09-05 12:04] VITALS: BP 124/76; PULSE 72; RESP 20; O2SAT 99
--- NOTE | 2022-09-05 12:09 | PC.NURSE ---
IV removed 1212
--- NOTE | 2022-09-10 02:10 | ED_ITS ---
HPI - Chest Pain General: Chief Complaint: Chest Pain Stated Complaint: Chest Pain\Left Arm Pain Time Seen by Provider: 09/03/22 23:38 History of Present Illness: This note pertains to patient encounter in the ED on 09/03-. Pt presented with chest pain, described as heartburn. similar to other episodes in lif, but lasted longer. Present since synagogue on same day, still present in room. Some nausea without emesis, no radiation. Presents with PFS ED PFSH: Medical History Chronic constipation CKD (chronic kidney disease) Diabetes mellitus Diabetic neuropathy 3 para 3 History of cardiovascular stress test 04/2021 normal ekg response to lexiscan infusion and normal myocardial perfusion imaging History of echocardiogram 12/2020 EF 60% History of herpes zoster Hyperlipidemia Lichen sclerosus Osteoarthritis Plaque psoriasis Primary osteoarthritis of both hands Single kidney Surgical History History of esophagogastroduodenoscopy (EGD) History of exploratory laparotomy To evaluate abnormalities of left kidney many years ago History of hysterectomy Partial, an ovary remains History of left nephrectomy Approximately 39 years ago, issues secondary to either childhood or developmental abnormalities History of renal stent left kidney secondary to issues that ultimately led to removal of left kidney Family History Mother Diabetes Sister Diabetes Stroke Brother Diabetes Clotting disorder Heart disease Cancer bladder cancer Brother Heart disease Hypertension Denies family history of Colon cancer Ovarian cancer Hyperlipidemia Breast cancer Bleeding disorder Uterine cancer Social History Smoking and tobacco status: never smoked Alcohol intake: never Marital status: Physical Exam Const: COMMON NORMALS: no acute distress and healthy appearing HENMT: COMMON NORMALS: normocephalic and atraumatic HEAD & SCALP: normocephalic and atraumatic Neck/C-Spine: COMMON NORMALS: no JVD Chest: COMMONS NORMALS: normal inspection of the chest and normal palpation of entire chest wall CHEST: No abnormal inspection of the chest and Yes S ymmetrical chest wall rise Breast/axilla inspection: Yes no chest deformity, asymmetry, normal contours, no nodules, masses, tenderness Resp: COMMON NORMALS: clear to auscultation bilaterally AUSCULTATION: clear to auscultation bilaterally Cardio: COMMON NORMALS: no JVD, regular rate and regular rhythm RATE: r egular rate RHYTHM: regular rhythm GI: COMMON NORMALS: Normal to inspection, nondistended, normoactive bowel sounds present and non-tender : COMMON NORMALS: Yes no CVA tenderness BLADDER/KIDNEY EXAM: Yes no CVA tenderness Back/Pelvis: COMMON NORMALS: no CVA tenderness Course Vital Signs: Vital signs: Vital Signs Temperature 97.8 F 09/05/22 08:00 Pulse Rate 72 09/05/22 12:04 Respiratory Rate 20 H 09/05/22 12:04 Blood Pressure 124/76 09/05/22 12:04 Pulse Oximetry 99 09/05/22 12:04 Oxygen Delivery Me thod 09/05/22 08:00 MDM - Chest Pain Medical Decision Making 61F with atypical CP. EKG nonspecific changes without transmural ischemia. Delta trop positive for NSTEMI. Considered concomitant pathology including vascular catastrophe, infection, surgical process. Feel NSTEMI explains sxs despite CKD given rise. heparin ordered, CP free on reassessment, admitted to hospitalist. Social determinants include [place]. Billy Montalvo MD Lab Data 09/05/22 04:18 09/05/22 04:18 Radiology Impressions Chest X-Ray 09/03/22 23:48 IMPRESSION: 1. Mild atelectasis at the left lung base. This is new when compared to 08/29/2017. 2. No consolidative pulmonary infiltrate noted. Laboratory Results WBC 11.6 10^3/uL (4.0-10.0) H 09/03/22 23:40 RBC 4.75 10^6/uL (4.1-5.3) 09/03/22 23:40 Hgb 13.8 g/dL (11.5-15.3) 09/03/22 23:40 Hct 42.8 % (37.0-47.0) 09/03/22 23:40 MCV 90.1 fl (81-99) 09/03/22 23:40 MCH 29.1 pg (28.0-34.0) 09/03/22 23:40 MCHC 32.2 g/dL (30.0-36.0) 09/03/22 23:40 RDW 13.0 % (12.1-15.1) 09/03/22 23:40 Plt Count 351 10^3/cmm (130-400) 09/03/22 23:40 MPV 8.9 fL (7.4-10.4) 09/03/22 23:40 Neut % (Auto) 48.7 % 09/03/22 23:40 Lymph % (Auto) 41.4 % 09/03/22 23:40 [place] % (Auto) 6.2 % 09/03/22 23:40 Eos % (Auto) 2.2 % 09/03/22 23:40 Baso % (Auto) 0.7 % 09/03/22:40 Neut # (Auto) 5.65 10^3/uL (1.8-7.7) 09/03/22 23:40 Lymph # (Auto) 4.8 10^3/uL (0.8-4.8) 09/03/22 23:40 [place] # (Auto) 0.7 10^3/uL (0.2-0.9) 09/03/22 23:40 Eos # (Auto) 0.3 10^3/uL (0.0-0.8) 09/03/22 23:40 Baso # (Auto) 0.1 10^3/uL (0.0-0.1) 09/03/22 23:40 Nucleated RBC % (auto) 0 % 09/03/22: Nucleated RBCs # 0.0 /100WBC 09/03/22 23:40 D-Dimer 1.13 ug/mIFEU (0-0.59) H 09/03/22 23:40 Sodium 139 mmol/L (136-145) 09/03/22 23:40 Potassium 4.0 mmol/L (3.5-5.1) 09/03/22 23:40 Chloride 101 mmol/L (98-107) 09/03/22 23:40 Carbon Dioxide 26 mmol/L (22-29) 09/03/22 23:40 Anion Gap 16.0 (5-19) 09/03/22 23:40 BUN 10 mg/dL (6-20) 09/03/22 23:40 Creatinine 1.0 mg/dL (0.5-0.9) H 09/03/22 23:40 GFR Calculation 56.7 mL/min (90-130) L 09/03/22 23:40 Glucose 258 mg/dL (65-115) H 09/03/22 23:40 Calculated Osmolality 296 mOsm/kg (285-295) H 09/03/22 23:40 Calcium 9.1 mg/dL (8.5-10.5) 09/03/22 23:40 Total Bilirubin 0.2 mg/dL (0.15-1.2) 09/03/22 23:40 AST 15 U/L (0-32) 09/03/22 23:40 ALT 11 U/L (0-33) 09/03/22 23:40 Alkaline Phosphatase 72 U/L (35-105) 09/03/22 23:40 Troponin T Baseline 202 ng/L (0-10) H* 09/03/22 23:40 Total Protein 7.5 g/dL (6.6-8.7) 09/03/22 23:40 Albumin 3.6 g/dL (3.5-5.2) 09/03/22 23:40 Globulin 3.9 g/dL (1.3-4.6) 09/03/22 23:40 Influenza Type A Ag negative (Negative) 09/03/22 23:50 Influenza Type B Ag negative (Negative) 09/03/22 23:50 SARS-CoV-2 Ag (Rapid) negative (Negative) 09/03/22 23:50 Discharge Plan Discharge Patient Disposition: Admitted As Inpatient Admit Provider: Rabia Jenkins Clinical Impression: Acute non-ST elevation myocardial infarction (NSTEMI) Condition: Stable Discharge Diet: Cardiac and Low Salt Discharge Activity: Increase activity as tolerated Coding Level of Care Code ED Air Intelligence Officer for Daisy Shahid
== END 2022-09-05 12:35 | disposition home or self-care (01) | DRG 247 ==
LOC: ER 23:38 → CSU 09-04 01:39
PROVIDERS: Internal Medicine; Admitting Provider Hospitalist; Emergency Provider General Practice; PCP Internal Medicine; Visit Provider Internal Medicine
PROC: 027135Z Dilation of Coronary Artery, Two Arteries with Two Drug-eluting Intraluminal Devices, Percutaneous Approach (ICD-10-PCS; principal; 2022-09-04 09:30)
PROC: 027135Z Dilation of Coronary Artery, Two Arteries with Two Drug-eluting Intraluminal Devices, Percutaneous Approach (ICD-10-PCS; 2022-09-04 09:30)
DX: I21.4 Non-ST elevation (NSTEMI) myocardial infarction (principal); I25.110 Atherosclerotic heart disease of native coronary artery with unstable angina pectoris; E11.40 Type 2 diabetes mellitus with diabetic neuropathy, unspecified; E11.22 Type 2 diabetes mellitus with diabetic chronic kidney disease; I12.9 Hypertensive chronic kidney disease with stage 1 through stage 4 chronic kidney disease, or unspecified chronic kidney disease; N18.9 Chronic kidney disease, unspecified; E78.5 Hyperlipidemia, unspecified; Z79.85 Long-term (current) use of injectable non-insulin antidiabetic drugs; K59.09 Other constipation; M19.042 Primary osteoarthritis, left hand; M19.041 Primary osteoarthritis, right hand; L40.0 Psoriasis vulgaris; Z90.5 Acquired absence of kidney
CPT/HCPCS: 36415; 36416; 71045; 80048; 80053; 80061; 82962; 83036; 83735; 84484; 85025; 85378; 85610; 85730; 87426; 87804; 92978; 93005; 93306; 93454; 96367; 96372; 96374; 99152; 99153; 99285; C1725; C1753; C1769; C1874; C1887; C1894; C9600; C9601; J1644; J1815; J2250; J3010; J3490; J7030; Q9967

== ENCOUNTER → 2022-09-19 11:09 | Outpatient (BNVA) | payer OTHER, SELFPAY | PROVIDERS: PCP Internal Medicine; Visit Provider Nurse Practitioner Family | DX: I25.10 Atherosclerotic heart disease of native coronary artery without angina pectoris (principal) | CPT/HCPCS: 36415; 80048 ==

== ENCOUNTER 2022-10-11 13:29 | Outpatient (CLI) | payer OTHER, SELFPAY ==
--- NOTE | 2022-10-11 13:35 | MM_ITS ---
WS: [id number] BILATERAL 3D TOMOSYNTHESIS DIGITAL DIAGNOSTIC MAMMOGRAPHY WITH CAD CLINICAL INFORMATION: BREAST PAIN HISTORY: LEFT breast pain and soreness COMPARISON: 2011 TECHNIQUE: Bilateral CC, MLO, and ML views. FINDINGS: Scattered fibroglandular densities bilaterally. Incidental punctate calcifications. Areas of pain ind icated with markers LEFT breast. No underlying parenchymal abnormalities. Ultrasound described below. RIGHT breast is unremarkable. No suspicious focal mass, asymmetry, calcifications, or architectural distortion. ULTRASOUND BREAST LEFT TECHNIQUE: Ultrasound left breast focused area of concern. CLINICAL INFORMATION: BREAST PAIN FINDINGS: Ultrasound LEFT breast in the area of concern at the 5:00 position 5 cm from the nipple and LEFT areo la in the areas of concern. Normal underlying parenchymal tissue. No cystic or solid lesions. No susp icious findings. No lesions to target for biopsy. MM/[place] [id number] IMPRESSION: BI-RADS: 2-Benign FOLLOW UP: 1 Year Follow-up Recommend return to annual screening mammography.
--- NOTE | 2022-10-11 14:08 | US_ITS ---
WS: [id number] BILATERAL 3D TOMOSYNTHESIS DIGITAL DIAGNOSTIC MAMMOGRAPHY WITH CAD CLINICAL INFORMATION: BREAST PAIN HISTORY: LEFT breast pain and soreness COMPARISON: 2011 TECHNIQUE: Bilateral CC, MLO, and ML views. FINDINGS: Scattered fibroglandular densities bilaterally. Incidental punctate calcifications. Areas of pain ind icated with markers LEFT breast. No underlying parenchymal abnormalities. Ultrasound described below. RIGHT breast is unremarkable. No suspicious focal mass, asymmetry, calcifications, or architectural distortion. ULTRASOUND BREAST LEFT TECHNIQUE: Ultrasound left breast focused area of concern. CLINICAL INFORMATION: BREAST PAIN FINDINGS: Ultrasound LEFT breast in the area of concern at the 5:00 position 5 cm from the nipple and LEFT areo la in the areas of concern. Normal underlying parenchymal tissue. No cystic or solid lesions. No susp icious findings. No lesions to target for biopsy. US/US breast LT limited* [id number] IMPRESSION: BI-RADS: 2-Benign FOLLOW UP: 1 Year Follow-up Recommend return to annual screening mammography.
== END 2022-10-11 13:30 | disposition home or self-care (01) ==
LOC: RAD 13:31
PROVIDERS: PCP Internal Medicine; Visit Provider Internal Medicine
DX: N64.4 Mastodynia (principal)
CPT/HCPCS: 76642; 77062; G0279

== ENCOUNTER 2022-11-08 13:02 | Outpatient (CLI) | payer OTHER, SELFPAY ==
--- NOTE | 2022-11-08 13:27 | XR_ITS ---
WS: [id number] Exam: XR foot LT 2V [id number] Date/Time of Exam: 11/08/2022 1:36 PM Reason For Exam: TYPE 2 DM W/O COMPLICATIONS Comparison 05/19/2020. There is a healing fracture at the base of the proximal phalanx of the fifth toe without displacement . No other fractures are identified. No soft tissue foreign bodies are noted. Calcaneal spurs. Mild d egenerative changes. XR/XR foot LT 2V [id number] IMPRESSION: 1. Healing nondisplaced fracture at the base of the proximal fifth phalanx. 2. Mild degenerative changes.
== END 2022-11-08 13:03 | disposition home or self-care (01) ==
PROVIDERS: PCP Internal Medicine; Visit Provider Internal Medicine
DX: S92.515G Nondisplaced fracture of proximal phalanx of left lesser toe(s), subsequent encounter for fracture with delayed healing (principal); E11.9 Type 2 diabetes mellitus without complications; X58.XXXA Exposure to other specified factors, initial encounter
CPT/HCPCS: 73620

== ENCOUNTER → 2023-04-03 14:24 | Outpatient (BNVA) | payer OTHER, SELFPAY | PROVIDERS: PCP Internal Medicine; Visit Provider Nurse Practitioner Family | DX: S89.91XA Unspecified injury of right lower leg, initial encounter (principal); S80.811A Abrasion, right lower leg, initial encounter; X58.XXXA Exposure to other specified factors, initial encounter | CPT/HCPCS: 73590 ==

== ENCOUNTER 2023-04-18 23:53 | Emergency (ER) | payer OTHER, SELFPAY ==
--- NOTE | 2023-04-18 23:54 | ECG_ITS ---
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 Measurements Intervals [place] Rate: 78 P: 45 [place]: 200 QRS: 36 QRSD: 94 T: 47 QT: 367 QTc: 420 Interpretive Statements SINUS RHYTHM Compared to ECG 09/04/2022 02:26:46 T-wave abnormality no longer present Electronically Signed On 04-19-2023 11:12:36 SCALE MODEL MAKER by Sawyer Gann M.D. [id number] f
--- NOTE | 2023-04-18 23:58 | XRR_ITS ---
PROCEDURE INFORMATION: Exam: XR Chest Exam date and time: 04/19/2023 12:15 AM Age: 62 years old Clinical indication: Chest wall pain; Prior surgery; Surgery date: 6+ months; Surgery type: Stents; Additional info: Chest pain TECHNIQUE: Imaging protocol: Radiologic exam of the chest. Views: 1 view. COMPARISON: CR XR chest 1V portable [id number] 09/03/2022 11:58 PM FINDINGS: Lungs: No CHF/pulmonary edema. Visible lungs appear essentially clear. Pleural spaces: No visible pneumothorax. No definite pleural fluid. Heart/Mediastinum: Heart size is within normal limits. Bones/joints: No significant acute finding. XR/XR chest 1V portable [id number] IMPRESSION: 1. No definite CHF or pneumonia. 2. Other findings discussed above.
[2023-04-19] VITALS (8 sets, daily range): BP systolic 126–221; BP diastolic 71–109; PULSE 81–99; RESP 16–18; TEMP 36.6; O2SAT 86–100; BMI 29.9
--- NOTE | 2023-04-19 00:12 | ED_ITS ---
HPI - Chest Pain General: Chief Complaint: Chest Pain Stated Complaint: Chest Pains Time Seen by Provider: 04/18/23 23:58 History of Present Illness: patient presents to the ER after complaining of substernal chest pain since about 8:00 tonight. Patient denies any radiation of the pain. Patient denies any nausea vomiting shortness of breath diaphoresis. Patient does have a car diac history of 1 MT rate in the recent past. Patient currently is on Plavix patient's drove very quickly here so patient is little anxious and excited here. Review of Systems General: Reports: 10 or more systems reviewed and unremarkable except in HPI and below PFSH ED PFSH: Medical History Atherosclerosis of coronary artery Chronic constipation CKD (chronic kidney disease) Diabetes mellitus Diabetic neuropathy Elevated d-dimer 3 para 3 History of cardiovascular stress test 04/2021 normal ekg response to lexiscan infusion and normal myocardial perfusion imaging History of echocardiogram 12/2020 EF 60% History of herpes zoster Hyperlipidemia Hypertension Lichen sclerosus Non-ST elevation [place] (NSTEMI) Osteoarthritis Plaque psoriasis Primary osteoarthritis of both hands Single kidney Surgical History History of esophagogastroduodenoscopy (EGD) History of exploratory laparotomy To evaluate abnormalities of left kidney many years ago History of hysterectomy Partial, an ovary remains History of left nephrectomy Approximately 39 years ago, issues secondary to either childhood or developmental abnormalities History of renal stent left kidney secondary to issues that ultimately led to removal of left kidney Family History Mother Diabetes Sister Diabetes Stroke Brother Diabetes Clotting disorder Heart disease Cancer bladder cancer Brother Heart disease Hypertension Denies family history of Colon cancer Ovarian cancer Hyperlipidemia Breast cancer Bleeding disorder Uterine cancer Social History Smoking and tobacco/nicotine status: never used tobacco/nicotine Alcohol intake: never Substance/Drug Use: never Marital status: Physical Exam Const: COMMON NORMALS: no acute distress, average body habitus, patient oriented x3, no limitations, healthy appearing, alert and well nourished HENMT: COMMON NORMALS: normocephalic, atraumatic, hearing grossly normal bilaterally, external ears normal, Normal external nose present, moist oral mucous membranes and oropharynx normal HEAD & SCALP: normocephalic and atraumatic NOSE: Normal external nose present EXTERNAL EAR: Yes external ears normal Neck/C-Spine: COMMON NORMALS: full ROM, no lymphadenopathy, supple, no meningeal signs, no JVD and Thyroid normal THYROID: Thyroid normal Chest: COMMONS NORMALS: normal inspection of the chest and normal palpation of entire chest wall Resp: COMMON NORMALS: normal respiratory effort, No retractions, No use of accessory muscles and clear to auscultation bilaterally AUSCULTATION: clear to auscultation bilaterally Cardio: COMMON NORMALS: no JVD, regular rate, regular rhythm, S1 normal heart sound present, S2 normal heart sound present, No gallops present (Cardio), No clicks present (Cardio), No murmurs present (Cardio) and No rub (Cardio) RATE: regular rate RHYTHM: regular rhythm HEART SOUNDS: S1 normal heart sound present and S2 normal heart sound present GI: COMMON NORMALS: Normal to inspection, nondistended, normoactive bowel soun ds present, Soft to palpation, non-tender, No hepatosplenomegaly present and no masses PALPATION: Yes Soft to palpation and Yes No hepatosplenomegaly present Neuro: COMMON NORMALS: patient oriented x3 SENSORIUM/ORIENTATION: Yes alert MENINGEAL SIGNS: Yes no meningeal signs Course Vital Signs: Vital signs: Vital Signs Temperature 97.9 F 04/19/23 00:00 Pulse Rate 84 04/19/23 01:45 Respiratory Rate 16 04/19/23 01:45 Blood Pressure 126/89 04/19/23 01:45 Pulse Oximetry 100 04/19/23 01:45 Oxygen Delivery Me thod Nasal Cannula 04/19/23 01:45 Oxygen Flow Rate 2 04/19/23 01:45 MDM - Chest Pain Medical Decision Making patient presents to the ER with chest pain patient was worked up in normal cardiac fashion with serial enzymes EKGs and chest x-ray. Findings was benign for cardiac in nature. It is thought that the pain is noncardiac in nature. Patient be discharged home to follow-up with her PCP on an as-needed basis Differential Diagnosis Unlikely acute massive pulmonary embolism, acute respiratory failure, acute my ocardial infarction, cardiac arrest or sudden cardiac Medical Records I reviewed the patient's medical records. Lab Data I reviewed the patient's lab results. 04/19/23 00:08 11 00:33 Radiology Impressions Chest X-Ray 04/18/23 23:58 IMPRESSION: 1. No definite CHF or pneumonia. 2. Other findings discussed above. Laboratory Results WBC 14.12 10^3/uL (3.29-11.43) H 04/19/23 00:08 RBC 4.12 10^6/uL (3.85-5.65) 04/19/23 00:08 Hgb 12.20 g/dL (11.27-16.99) 04/19/23 00:08 Hct 37.4 % (36-47) 04/19/23 00:08 MCV 90.8 fl (85-98) 04/19/23 00:08 MCH 29.6 pg (27-33) 04/19/23 00:08 MCHC 32.6 g/dL (30-55) 04/19/23 00:08 RDW 13.4 % (12.1-15.1) 04/19/23 00:08 Plt Count 350 10^3/cmm (157-399) 04/19/23 00:08 MPV 9.1 fL (7.4-10.4) 04/19/23 00:08 Neut % (Auto) 57.7 % 04/19/23 00:08 Lymph % (Auto) 33.7 % 04/19/23 00:08 [place] % (Auto) 6.1 % 04/19/23 00:08 Eos % (Auto) 1.7 % 04/19/23 00:08 Baso % (Auto) 0.4 % 04/19/23 00:08 Neut # (Auto) 8.15 10^3/uL (1.8-7.7) H 04/19/23 00:08 Lymph # (Auto) 4.8 10^3/uL (0.8-4.8) 04/19/23 00:08 [place] # (Auto) 0.9 10^3/uL (0.2-0.9) 04/19/23 00:08 Eos # (Auto) 0.2 10^3/uL (0.0-0.8) 04/19/23 00:08 Baso # (Auto) 0.1 10^3/uL (0.0-0.1) 04/19/23 00:08 Nucleated RBC % (auto) 0 % 04/19/23 00:08 Nucleated RBCs # 0.0 /100WBC 04/19/23 00:08 PT 13.00 SECONDS (12.1-14.9) 04/19/23 00:33 INR 0.95 (0.8-1.2) 04/19/23 00:33 Sodium 137 mmol/L (136-145) 04/19/23 00:33 Potassium 3.7 mmol/L (3.5-5.1) 04/19/23 00:33 Chloride 103 mmol/L (98-107) 04/19/23 00:33 Carbon Dioxide 21 mmol/L (22-29) L 04/19/23 00:33 Anion Gap 16.7 (5-19) 04/19/23 00:33 BUN 15 mg/dL (8-23) 04/19/23 00:33 Creatinine 1.2 mg/dL (0.5-0.9) H 04/19/23 00:33 GFR Calculation 45.8 mL/min (90-130) L 04/19/23 00:33 Glucose 187 mg/dL (65-115) H 04/19/23 00:33 Calculated Osmolality 290 mOsm/kg (285-295) 04/19/23 00:33 Calcium 9.3 mg/dL (8.5-10.5) 04/19/23 00:33 Total Bilirubin 0.6 mg/dL (0.15-1.2) 04/19/23 00:33 AST 11 U/L (0-32) 04/19/23 00:33 ALT 13 U/L (0-33) 04/19/23 00:33 Alkaline Phosphatase 70 U/L (35-105) 04/19/23 00:33 Troponin T Baseline 10 ng/L (0-10) 04/19/23 00:33 Troponin T 120 Minute 10.38 ng/L (0-10) H 04/19/23 01:36 Delta Troponin T 0.38 ABS# (0-10) 04/19/23 01:36 Total Protein 7.2 g/dL (6.6-8.7) 04/19/23 00:33 Albumin 3.5 g/dL (3.5-5.2) 04/19/23 00:33 Globulin 3.7 g/dL (1.3-4.6) 04/19/23 00:33 All radiology interpretation(s) finalized by discharge EKG Data EKG 1: I personally reviewed and interpreted this EKG as follows: EKG interpretation date: 04/18/23 EKG interpretation time: 23:54 Prior EKG tracings: available for review Interpretation: EKG shows ventricular rate 70 bpm, TN interval 200, QRS duration 94, QTc of 400, sinus rhythm, no ST-T wave changes EKG 2: I personally reviewed and interpreted this EKG as follows: EKG interpretation date: 04/19/23 EKG interpretation time: 01:52 Prior EKG tracings: available for review Interpretation: EKG showed ventricular rate 98 bpm, TN interval 176, QRS duration 94, QTc of 411, sinus rhythm, Discharge Plan Discharge Patient Disposition: Home Clinical Impression: Atypical chest pain Condition: Stable Prescriptions: No Action clobetasol [Temovate] 0.05 % cream 1 applic topical BID 14 Days Qty: 45 0RF Trulicity 3 mg/0.5 mL pen injector 3 mg SUBCUT .Weekly Qty: 2 6RF fluocinolone and shower cap 0.01 % oil 1 ea topical DAILY Qty: 118.28 2RF Rx Instructions: Apply to scalp and leave on 4 hours or cover with shower cap overnight, then wash. mupirocin 2 % ointment 1 applic TOPICAL BID Qty: 22 1RF Rx Instructions: Apply BID to open areas on face until healed ciclopirox 1 % shampoo 10 ml topical ONCE Qty: 120 6RF Rx Instructions: Apply to scalp 2-3 times weekly. Allow to sit 5 minutes, then rinse. cephalexin 500 mg capsule 500 mg PO TID Qty: 21 0RF valacyclovir [Valtrex] 500 mg tablet 500 mg PO DAILY Qty: 90 3RF gabapentin 600 mg tablet 600 mg PO TID Qty: 90 3RF Linzess 145 mcg capsule 145 mcg PO DAILY Qty: 30 3RF clindamycin phosphate 1 % lotion 1 applic TOPICAL BID Qty: 60 1RF Rx Instructions: Apply thin film to face and hairline twice daily mometasone 0.1 % solution 1 applic TOPICAL DAILY Qty: 60 2RF Rx Instructions: Apply 3-5 drops to posterior scalp nightly as needed for itching fluticasone propionate [Flonase Allergy Relief] 50 mcg/actuation spray,saad pension 1 spray intranasal Q12H 90 Days Qty: 48 0RF Rx Instructions: administer into each nostril duloxetine 30 mg capsule,delayed release(DR/EC) 90 mg PO DAILY MDD 3 30 Days Qty: 90 6RF Tresiba FlexTouch U-200 200 unit/mL (3 mL) insulin pen 70 unit SUBCUT .at bedtime 90 Days Qty: 9 8RF Rx Instructions: 90 day supply (DME) pen needle, diabetic [1st Tier Unifine Pentips] 31 gauge x 1/4 needle See Rx Instructions .ROUTE .MEDSUPPLY Qty: 100 12RF Rx Instructions: As directed Otezla 30 mg tablet 30 mg PO BID Qty: 60 4RF diclofenac sodium [Voltaren] 1 % gel 4 g topical QID Qty: 100 0RF Rx Instructions: apply to single knee, ankle, foot; for foot includes sole/toes/top of foot lisinopril 20 mg tablet 20 mg PO DAILY pantoprazole 40 mg tablet,delayed release (DR/EC) 40 mg PO DAILY aspirin 81 mg Tablet,Delayed Release (Dr/Ec) 81 mg PO DAILY Qty: 60 3RF atorvastatin 40 mg Tablet 40 mg PO BEDTIME Qty: 60 3RF clopidogrel 75 mg Tablet 75 mg PO DAILY Qty: 60 3RF Discharge Orders: Discharge ED (Routine); Ordered 04/19/23 Ordered By: Rupesh Griffin Patient Instructions: Chest Pain (ED) Activity Restrictions/Additional Instructions: please follow-up with your family practice physician in the next 7 to 10 days or sooner as needed for further evaluation and treatment. If your chest pain returns please feel free to return to the ER. Coding Level of Care Code ED Video Game Developer for Daisy Shahid
[2023-04-19 00:21] LABS: Basophils # 0.1 10^3/uL (0.0-0.1); Basophils % 0.4 %; Eosinophils # 0.2 10^3/uL (0.0-0.8); Eosinophils % 1.7 %; Hematocrit 37.4 % (36-47); Lymphocytes # 4.8 10^3/uL (0.8-4.8); Lymphocytes % 33.7 %; Mean Corpuscular HGB Conc 32.6 g/dL (30-55); Mean Corpuscular Hemoglobin 29.6 pg (27-33); Mean Corpuscular Volume 90.8 fl (85-98); Mean Platelet Volume 9.1 fL (7.4-10.4); Monocytes # 0.9 10^3/uL (0.2-0.9); Monocytes % 6.1 %; Neutrophils # 8.15 10^3/uL (1.8-7.7); Neutrophils % 57.7 %; Nucleated Red Blood Cells % 0 %; Platelet Count 350 10^3/cmm (157-399); Red Blood Count 4.12 10^6/uL (3.85-5.65); Red Cell Distribution Width 13.4 % (12.1-15.1); White Blood Count 14.12 10^3/uL (3.29-11.43)
[2023-04-19] MEDS: LORazepam 2 mg/mL INJ 1 mL 1 MG IVP (00:22)
--- NOTE | 2023-04-19 00:35 | PC.NURSE ---
assumed care of the pt at this time
[2023-04-19 00:45] LABS: INR 0.95 (0.8-1.2)
[2023-04-19] MEDS: hyDRALAzine 20 mg/mL INJ 1 mL IVP (00:46)
[2023-04-19 00:53] LABS: Troponin(5th) Baseline 10 ng/L (0-10)
[2023-04-19 00:56] LABS: Alanine Aminotransferase 13 U/L (0-33); Albumin Level 3.5 g/dL (3.5-5.2); Alkaline Phosphatase 70 U/L (35-105); Anion Gap 16.7 (5-19); Aspartate Amino Transferase 11 U/L (0-32); Blood Urea Nitrogen 15 mg/dL (8-23); Calcium 9.3 mg/dL (8.5-10.5); Carbon Dioxide 21 mmol/L (22-29); Chloride 103 mmol/L (98-107); Globulin 3.7 g/dL (1.3-4.6); Glomerular Filtration Rate 45.8 mL/min (90-130); Glucose 187 mg/dL (65-115); Osmolality Calculated 290 mOsm/kg (285-295); Potassium 3.7 mmol/L (3.5-5.1); Sodium 137 mmol/L (136-145); Total Bilirubin 0.6 mg/dL (0.15-1.2); Total Protein 7.2 g/dL (6.6-8.7)
--- NOTE | 2023-04-19 01:21 | PC.NURSE ---
clonidine not given d/t pt BP being 149/79
--- NOTE | 2023-04-19 01:58 | ECG_ITS ---
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 Measurements Intervals [place] Rate: 98 P: 56 [place]: 176 QRS: 59 QRSD: 94 T: 28 QT: 356 QTc: 455 Interpretive Statements SINUS RHYTHM NONSPECIFIC T-WAVE ABNORMALITY Compared to ECG 04/18/2023 23:54:37 T-wave abnormality now present Electronically Signed On 04-19-2023 11:13:37 EVENT MARKETING INTERN by Sawyer Gann M.D. [id number]
[2023-04-19 02:03] LABS: Troponin 5 2HR 10.38 ng/L (0-10)
[2023-04-19 02:04] LABS: Troponin 5 2HR Delta 0.38 ABS# (0-10)
== END 2023-04-19 02:26 | disposition home or self-care (01) ==
PROVIDERS: Emergency Provider Emergency Medicine
DX: R07.89 Other chest pain (principal); Z79.85 Long-term (current) use of injectable non-insulin antidiabetic drugs; Z79.4 Long term (current) use of insulin; Z79.82 Long term (current) use of aspirin; Z79.02 Long term (current) use of antithrombotics/antiplatelets; I25.10 Atherosclerotic heart disease of native coronary artery without angina pectoris; E11.22 Type 2 diabetes mellitus with diabetic chronic kidney disease; I12.9 Hypertensive chronic kidney disease with stage 1 through stage 4 chronic kidney disease, or unspecified chronic kidney disease; N18.9 Chronic kidney disease, unspecified; E11.40 Type 2 diabetes mellitus with diabetic neuropathy, unspecified; E78.5 Hyperlipidemia, unspecified; I25.2 Old myocardial infarction
CPT/HCPCS: 36415; 71045; 80053; 84484; 85025; 85610; 93005; 96374; 96375; 99285; J0360; J2060

== ENCOUNTER → 2023-05-10 11:00 | Outpatient (BNVA) | payer OTHER, SELFPAY | PROVIDERS: PCP Nurse Practitioner Family; Visit Provider Nurse Practitioner Family | DX: E11.9 Type 2 diabetes mellitus without complications (principal) | CPT/HCPCS: 80053; 80061; 83036; 84443; 85025 ==

== ENCOUNTER → 2023-07-16 10:35 | Outpatient (BNVA) | payer OTHER, SELFPAY | PROVIDERS: PCP Nurse Practitioner Family; Visit Provider Nurse Practitioner Family | DX: E11.69 Type 2 diabetes mellitus with other specified complication (principal); Z79.4 Long term (current) use of insulin; I10 Essential (primary) hypertension; Z90.5 Acquired absence of kidney | CPT/HCPCS: 80053; 80061; 83036; 84443; 85025 ==

== ENCOUNTER → 2023-10-03 14:44 | Outpatient (BNVA) | payer OTHER, SELFPAY | PROVIDERS: PCP Nurse Practitioner Family; Visit Provider Nurse Practitioner Family | DX: R05.9 Cough, unspecified (principal) | CPT/HCPCS: 87400; 87426 ==

== ENCOUNTER → 2023-10-08 09:41 | Outpatient (BNVA) | payer OTHER, SELFPAY | PROVIDERS: PCP Nurse Practitioner Family; Visit Provider Nurse Practitioner Family | DX: E11.69 Type 2 diabetes mellitus with other specified complication (principal); Z79.4 Long term (current) use of insulin | CPT/HCPCS: 80053; 80061; 83036; 84443; 85025 ==

== ENCOUNTER → 2023-10-16 14:49 | Outpatient (BNVA) | payer OTHER, SELFPAY | PROVIDERS: PCP Nurse Practitioner Family; Visit Provider Nurse Practitioner Family | DX: R05.9 Cough, unspecified (principal) | CPT/HCPCS: 71046 ==

== ENCOUNTER 2023-12-13 10:17 | Emergency (ER) | payer OTHER, SELFPAY ==
--- NOTE | 2023-12-13 10:32 | XRR_ITS ---
PROCEDURE INFORMATION: Exam: XR Chest Exam date and time: 12/13/2023 11:25 AM Age: 63 years old Clinical indication: Dyspnea; Prior surgery; Surgery date: 6+ months; Surgery type: Stent; Additional info: Dyspnea/cough, nausea, loss of appetite TECHNIQUE: Imaging protocol: Radiologic exam of the chest. Views: 1 view. COMPARISON: CR XR chest 2V* [id number] 10/16/2023 2:47 PM FINDINGS: Lungs: Unremarkable. No consolidation. Pleural spaces: Unremarkable. No pleural effusion. No pneumothorax. Heart/Mediastinum: Unremarkable. No cardiomegaly. Bones/joints: Unremarkable. XR/XR chest 1V portable [id number] IMPRESSION: No acute findings.
[2023-12-13 10:34] VITALS: BP 175/102; PULSE 86; RESP 16; TEMP 37.1; O2SAT 94; BMI 28.6
--- NOTE | 2023-12-13 10:42 | ED_ITS ---
HPI - General Adult 2 General: Chief complaint: General Medical Stated complaint: loss of appetite, low glucose, vomitting, weakness Time Seen by Provider: 12/13/23 10:30 Source: patient Mode of arrival: ambulatory History of Present Illness: 63-year-old female presents emergency ro om with various complaints generally not feeling well having some vomiting and nausea back pain. Symptoms began 2 days ago. States her blood sugars been low she has not been able to eat feels like she is vomiting up almost everything she eats. She is on insulin as well as a GLP-1. No recent medication changes. No specific fever sweats chills no dysuria urgency or frequency no medic easy melena hematemesis coffee-ground emesis. She previously had a nephrectomy as well as a hysterectomy. She cannot verbalize very well why she had a nephrectomy evidencing her kidney collapsed. Onset (ago): day(s) Associated symptoms: Reports decreased appetite, malaise, vomiting and weakness; Deny chest pain, confusion, cough, diaphoresis, dyspnea, fevers/chills, headache(s), nausea, rash, palpitations, seizures, short of breath or syncope Review of Systems 2 Const: Reports: malaise; Denies: fever(s), chills or diaphoresis Card: Denies: chest pain, palpitations or syncope Resp: Denies: dyspnea GI: Reports: vomiting; Denies: abdominal pain or nausea : Denies: dysuria, urinary frequency or urinary urgency Musc: Denies: neck pain or back pain Skin/Breast: Denies: rash Neuro: Denies: headache(s) or confusion PFSH ED 2 PFSH: Medical History Atherosclerosis of coronary artery Chronic constipation Osteoarthritis Diabetic neuropathy Elevated d-dimer Single kidney Hypertension Non-ST elevation [place] (NSTEMI) History of herpes zoster 3 para 3 History of echocardiogram 12/2020 EF 60% History of cardiovascular stress test 04/2021 normal ekg response to lexiscan infusion and normal myocardial perfusion imaging Plaque psoriasis Lichen sclerosus Primary osteoarthritis of both hands Hyperlipidemia Diabetes mellitus CKD (chronic kidney disease) Surgical History History of exploratory laparotomy To evaluate abnormalities of left kidney many years ago History of left nephrectomy Approximately 39 years ago, issues secondary to either childhood or developmental abnormalities History of esophagogastroduodenoscopy (EGD) History of hysterectomy Partial, an ovary remains History of renal stent left kidney secondary to issues that ultimately led to removal of left kidney Family History Mother Diabetes Sister Diabetes Stroke Brother Diabetes Clotting disorder Heart disease Cancer bladder cancer Brother Heart disease Hypertension Denies family history of Colon cancer Ovarian cancer Hyperlipidemia Breast cancer Bleeding disorder Uterine cancer Social History Smoking and tobacco/nicotine status: never used tobacco/nicotine Alcohol intake: never Substance/Drug Use: never Marital status: Physical Exam 2 Const: COMMON NORMALS: no acute distress GENERAL APPEARANCE: cooperative and comfortable ORIENTATION/CONSCIOUSNESS: Yes awake, Yes oriented to person, Yes oriented to place and Yes oriented to time HENMT: COMMON NORMALS: normocephalic, atraumatic and hearing grossly normal bilaterally HEAD & SCALP: normocephalic and atraumatic Resp: COMMON NORMALS: normal respiratory effort, No retractions, No use of accessory muscles and clear to auscultation bilaterally AUSCULTATION: clear to auscultation bilaterally Cardio: COMMON NORMALS: regular rate, regular rhythm and No murmurs present (Cardio) RATE: regular rate RHYTHM: regular rhythm GI: COMMON NORMALS: Soft to palpation and No hepatosplenomegaly present A USCULTATION: Yes normoactive bowel sounds PALPATION: Yes Soft to palpation, No Tenderness to palpation present (GI), No Guarding due to palpation present (GI) and Yes No hepatosplenomegaly present Extremity: COMMON NORMALS: normal to inspection, capillary refill normal, no clubbing, cyanosis or edema, no calf tenderness and no pedal edema Neuro: SENSORIUM/ORIENTATION: Yes oriented to person, Yes oriented to place and Yes oriented to time Skin: COMMON NORMALS: no rashes or lesions noted GENERAL SKIN EXAM: no rashes or lesions noted Course 2 Vital Signs: Vital signs: Vital Signs Temperature 98.8 F 12/13/23 10:34 Pulse Rate 90 12/13/23 14:33 Respiratory Rate 17 12/13/23 14:33 Blood Pressure 178/104 12/13/23 14:33 Pulse Oximetry 96 12/13/23 14:33 Oxygen Delivery Me thod Room Air 12/13/23 13:00 MDM - General Adult Medical Decision Making Urine shows cystitis. Blood sugar markedly elevated were able to get it down with IV fluids and insulin patient is feeling somewhat better given initial dose of ceftriaxone discharged home on Cipro anion gap was normal. Reviewed findings with patient. Medical Records I reviewed the patient's medical records. Lab Data I reviewed the patient's lab results. 12/13/23 10:43 12/13/23 10:43 Radiology Impressions Chest X-Ray 12/13/23 10:32 IMPRESSION: No acute findings. Laboratory Results WBC 11.29 10^3/uL (3.29-11.43) 12/13/23 10:43 RBC 4.97 10^6/uL (3.85-5.65) 12/13/23 10:43 Hgb 14.90 g/dL (11.27-16.99) 12/13/23 10:43 Hct 43.4 % (36-47) 12/13/23 10:43 MCV 87.3 fl (85-98) 12/13/23 10:43 MCH 30.0 pg (27-33) 12/13/23 10:43 MCHC 34.3 g/dL (30-55) 12/13/23 10:43 RDW 12.6 % (12.1-15.1) 12/13/23 10:43 Plt Count 309 10^3/cmm (157-399) 12/13/23 10:43 MPV 9.7 fL (7.4-10.4) 12/13/23 10:43 Neut % (Auto) 64.9 % 12/13/23 10:43 Lymph % (Auto) 25.4 % 12/13/23 10:43 [place] % (Auto) 6.3 % 12/13/23 10:43 Eos % (Auto) 2.5 % 12/13/23 10:43 Baso % (Auto) 0.4 % 12/13/23 10:43 Neut # (Auto) 7.32 10^3/uL (1.8-7.7) 12/13/23 10:43 Lymph # (Auto) 2.9 10^3/uL (0.8-4.8) 12/13/23 10:43 [place] # (Auto) 0.7 10^3/uL (0.2-0.9) 12/13/23 10:43 Eos # (Auto) 0.3 10^3/uL (0.0-0.8) 12/13/23 10:43 Baso # (Auto) 0.1 10^3/uL (0.0-0.1) 12/13/23 10:43 Nucleated RBC % (auto) 0 % 12/13/23 10:43 Nucleated RBCs # 0.0 /100WBC 12/13/23 10:43 Specimen Type Arterial 12/13/23 11:42 Sample Site Radial, right 12/13/23 11:42 ABG pH 7.45 (7.35-7.45) 12/13/23 11:42 ABG pCO2 32.9 mmHg (35-45) L 12/13/23 11:42 ABG pO2 94.1 mmHg (80.0-100.0) 12/13/23 11:42 ABG PO2/FiO2 Ratio 448 12/13/23 11:42 ABG HCO3 22.7 mmol/L (22-26) 12/13/23 11:42 ABG O2 Saturation 98.4 12/13/23 11:42 ABG Base Excess -0.6 mmol/L (-2.0-2.0) 12/13/23 11:42 [place] Test Pos 12/13/23 11:42 A-a O2 Gradient 1.7 mmHg (5-10) L 12/13/23 11:42 Hematocrit 44.8 % (37-47) 12/13/23 11:42 Hgb O2 Saturation 97.0 % (95-100) 12/13/23 11:42 Carboxyhemoglobin 1.1 %THgb (0.4-20.1) 12/13/23 11:42 Methemoglobin 0.3 % (0.4-1.5) L 12/13/23 11:42 Total Hemoglobin 14.6 g/dL (12-16) 12/13/23 11:42 Sodium 137.0 mmol/L (131-143) 12/13/23 11:42 Potassium 3.3 mmol/L (3.5-5.0) L 12/13/23 11:42 Glucose 426.0 mg/dL (70-115) H 12/13/23 11:42 Ionized Calcium 1.2 mmol/L (1.1-1.4) 12/13/23 11:42 O2 Delivery Device Room air 12/13/23 11:42 FiO2 21.0 % 12/13/23 11:42 Telecom Assistant ID glc 12/13/23 11:42 Sodium 135 mmol/L (136-145) L 12/13/23 10:43 Potassium 4.3 mmol/L (3.5-5.1) 12/13/23 10:43 Chloride 97 mmol/L (98-107) L 12/13/23 10:43 Carbon Dioxide 25 mmol/L (22-29) 12/13/23 10:43 Anion Gap 17.3 (5-19) 12/13/23 10:43 BUN 17 mg/dL (8-23) 12/13/23 10:43 Creatinine 1.2 mg/dL (0.5-0.9) H 12/13/23 10:43 GFR Calculation 45.7 mL/min (90-130) L 12/13/23 10:43 Glucose 499 mg/dL (65-115) H 12/13/23 10:43 POC Glucose 222 mg/dL (70-110) H 12/13/23 14:05 Calculated Osmolality 304 mOsm/kg (285-295) H 12/13/23 10:43 Calcium 9.6 mg/dL (8.5-10.5) 12/13/23 10:43 Magnesium 1.6 mg/dL (1.7-2.3) L 12/13/23 10:43 Total Bilirubin 0.9 mg/dL (0.15-1.2) 12/13/23 10:43 AST 10 U/L (0-32) 12/13/23 10:43 ALT 12 U/L (0-33) 12/13/23 10:43 Alkaline Phosphatase 84 U/L (35-105) 12/13/23 10:43 Total Protein 7.5 g/dL (6.6-8.7) 12/13/23 10:43 Albumin 3.9 g/dL (3.5-5.2) 12/13/23 10:43 Globulin 3.6 g/dL (1.3-4.6) 12/13/23 10:43 Lipase 48 U/L (13-60) 12/13/23 10:43 Urine Color Yellow (Yellow) 12/13/23 11:28 Urine Appearance Clear (CLEAR) 12/13/23 11:28 Urine pH 5 (5-7) 12/13/23 11:28 Ur Specific [place] 1.015 (1.005-1.030) 12/13/23 11:28 Urine Protein 2+ (Negative) H 12/13/23 11:28 Urine Glucose (UA) 4+ (Normal) H 12/13/23 11:28 Urine Ketones 1+ (Negative) H 12/13/23 11:28 Urine Blood Neg (Negative) 12/13/23 11:28 Urine Nitrate Negative (Negative) 12/13/23 11:28 Urine Bilirubin Neg (Negative) 12/13/23 11:28 Urine Urobilinogen Neg mg/dL (Negative) 12/13/23 11:28 Ur Leukocyte Esterase 1+ (Negative) H 12/13/23 11:28 Urine RBC 0-4 /hpf (0-2) H 12/13/23 11:28 Urine WBC 25-40 /hpf (0-5) H 12/13/23 11:28 Ur Squamous Epith Cells 5-10 /hpf (0-5) H 12/13/23 11:28 Amorphous Sediment Not Reportable 12/13/23 11:28 Urine Bacteria 2+ /hpf (NONE) H 12/13/23 11:28 Hyaline Casts Rare /lpf 12/13/23 11:28 Urine Mucus Trace /hpf 12/13/23 11:28 Serum Ketones Negative (Negative) 12/13/23 10:33 All radiology interpretation(s) finalized by discharge Discharge Plan Discharge Patient Disposition: Home Clinical Impression: Cystitis Condition: Stable Prescriptions: New ciprofloxacin HCl 250 mg tablet 250 mg PO BID Qty: 14 0RF No Action (DME) compressor, for nebulizer Device See Rx Instructions .Route Qty: 1 0RF Rx Instructions: As directed albuterol sulfate 2.5 mg /3 mL (0.083 %) solution for nebulization 2.5 mg inhalation QID PRN (Reason: shortness of breath or wheezing) Qty: 75 0RF (DME) pen needle, diabetic [1st Tier Unifine Pentips] 31 gauge x 1/4 needle See Rx Instructions .ROUTE .MEDSUPPLY Qty: 100 12RF Rx Instructions: As directed pantoprazole 40 mg tablet,delayed release (DR/EC) 40 mg PO DAILY Qty: 90 0RF lisinopril 20 mg tablet 20 mg PO DAILY Qty: 90 0RF fluticasone propionate [Flonase Allergy Relief] 50 mcg/actuation spray,suspension 1 spray intranasal Q12H 90 Days Qty: 48 0RF Rx Instructions: administer into each nostril duloxetine 60 mg capsule,delayed release(DR/EC) 60 mg PO BID 30 Days Qty: 180 0RF clopidogrel 75 mg tablet 75 mg PO DAILY Qty: 90 0RF atorvastatin 40 mg tablet 40 mg PO BEDTIME Qty: 90 0RF albuterol sulfate 90 mcg/actuation HFA aerosol inhaler 2 puff inhalation QID PRN (Reason: shortness of breath or wheezing) Qty: 6.7 0RF Tresiba FlexTouch U-200 200 unit/mL (3 mL) insulin pen 75 unit SUBCUT .at bedtime 90 Days Qty: 9 0RF dulaglutide 4.5 mg/0.5 mL pen injector 4.5 mg SUBCUT .Weekly Qty: 2 2RF Rx Instructions: SUNDAY gabapentin 600 mg tablet 600 mg PO TID Qty: 90 3RF Otezla 30 mg tablet 30 mg PO BID Qty: 60 4RF buspirone 10 mg tablet 10 mg PO TID PRN (Reason: anxiety) Qty: 90 0RF budesonide 0.5 mg/2 mL suspension for nebulization 0.5 mg inhalation BID PRN (Reason: Shortness Of Breath) ciclopirox 1 % shampoo See Rx Instructions .ROUTE .COMPLEX Rx Instructions: Apply to scalp 2-3 times weekly. Allow to sit 5 minutes, then rinse. Discharge Orders: Discharge ED (Routine); Ordered 12/13/23 Ordered By: David Fernández Referrals: Sara Browning FNP-C [Primary Care Provider] - Discharge Diet: Usual diet Discharge Activity: Resume usual activity Patient Instructions: Opioid Safety, Pain Management Activity Restrictions/Additional Instructions: Thank you for choosing [facility] for your healthcare needs today. It is very important that you follow up as instructed or that you return to the Emergency Department should you have concerns or if your condition changes or worsens in any way. You were seen today with elevated blood sugars found to have a bladder infection you were given a dose of antibiotics in the emergency room should start on the oral antibiotics 1 pill twice a day for 7 days. Coding Level of Care Code ED Car Carder for Daisy Shahid
[2023-12-13 10:49] LABS: Basophils # 0.1 10^3/uL (0.0-0.1); Basophils % 0.4 %; Eosinophils # 0.3 10^3/uL (0.0-0.8); Eosinophils % 2.5 %; Hematocrit 43.4 % (36-47); Lymphocytes # 2.9 10^3/uL (0.8-4.8); Lymphocytes % 25.4 %; Mean Corpuscular HGB Conc 34.3 g/dL (30-55); Mean Corpuscular Volume 87.3 fl (85-98); Mean Platelet Volume 9.7 fL (7.4-10.4); Monocytes # 0.7 10^3/uL (0.2-0.9); Monocytes % 6.3 %; Neutrophils # 7.32 10^3/uL (1.8-7.7); Neutrophils % 64.9 %; Nucleated Red Blood Cells % 0 %; Platelet Count 309 10^3/cmm (157-399); Red Blood Count 4.97 10^6/uL (3.85-5.65); Red Cell Distribution Width 12.6 % (12.1-15.1); White Blood Count 11.29 10^3/uL (3.29-11.43)
--- NOTE | 2023-12-13 10:55 | ECG_ITS ---
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 Measurements Intervals [place] Rate: 75 P: -5 [place]: 156 QRS: 46 QRSD: 98 T: 51 QT: 389 QTc: 436 Interpretive Statements SINUS RHYTHM Compared to ECG 04/19/2023 01:52:39 T-wave abnormality no longer present Electronically Signed On 12-13-2023 20:20:42 CDT by Sawyer Gann M.D. [id number]
[2023-12-13 11:10] LABS: Alanine Aminotransferase 12 U/L (0-33); Albumin Level 3.9 g/dL (3.5-5.2); Alkaline Phosphatase 84 U/L (35-105); Anion Gap 17.3 (5-19); Aspartate Amino Transferase 10 U/L (0-32); Blood Urea Nitrogen 17 mg/dL (8-23); Calcium 9.6 mg/dL (8.5-10.5); Carbon Dioxide 25 mmol/L (22-29); Chloride 97 mmol/L (98-107); Creatinine Clr Calc Pharmacy 50.8344; Globulin 3.6 g/dL (1.3-4.6); Glomerular Filtration Rate 45.7 mL/min (90-130); Glucose 499 mg/dL (65-115); Lipase 48 U/L (13-60); Magnesium 1.6 mg/dL (1.7-2.3); Osmolality Calculated 304 mOsm/kg (285-295); Potassium 4.3 mmol/L (3.5-5.1); Sodium 135 mmol/L (136-145); Total Bilirubin 0.9 mg/dL (0.15-1.2); Total Protein 7.5 g/dL (6.6-8.7)
[2023-12-13 11:15] VITALS: BP 173/112; PULSE 76; O2SAT 95
[2023-12-13] MEDS: sodium chloride 0.9% 1,000 ML 999 ML IV (11:29)
[2023-12-13] MEDS: insulin regular-human 100 units/1 mL 10 UNIT IVP ×2 (11:31→13:06)
[2023-12-13 11:34] LABS: Ketone (Acetest) Serum Negative (Negative)
[2023-12-13 11:48] LABS: Blood Urine Neg (Negative); Glucose Urine UA 4+ (Normal); Ketones Urine 1+ (Negative); Nitrate Urine Negative (Negative); Protein Urine 2+ (Negative); Specific Gravity, Urine 1.015 (1.005-1.030); Urine Appearance Clear (CLEAR); Urine Color Yellow (Yellow); pH Urine 5 (5-7)
[2023-12-13 11:49] LABS: Add Urine Microscopic? YES; Bilirubin Urine Neg (Negative); Leukocyte Esterase Urine 1+ (Negative); Urobilinogen Urine Neg (Negative)
[2023-12-13 11:50] LABS: RBC Urine 0-4 /hpf (0-2); WBC Urine 25-40 /hpf (0-5)
[2023-12-13 11:51] LABS: Add Urine Culture? Yes; Bacteria Urine 2+ /hpf; Hyaline Casts Urine RARE /lpf; Mucus Urine TRACE /hpf
[2023-12-13 11:55] LABS: ABG PCO2 32.9 mmHg (35-45); ABG PH Result 7.45 (7.35-7.45); Alveolar-Arterial Oxygen Gradi 1.7 mmHg (5-10); Arterial Blood Gas Hematocrit 44.8 % (37-47); Base Excess ABG -0.6 mmol/L (-2.0-2.0); Blood Gas Allen Test Pos; Blood Gas Operator Identificat glc; Blood Gas Sample Site Radial, right; Blood Gas Sample Type Arterial; Carboxyhemoglobin 1.1 %THgb (0.4-20.1); HCO3 ABG 22.7 mmol/L (22-26); Ionized Calcium Level - ABG 1.2 mmol/L (1.1-1.4); Methemoglobin 0.3 % (0.4-1.5); Oxygen Device ROOM AIR; Oxygen Saturation ABG 98.4; PO2 ABG 94.1 mmHg (80.0-100.0); PO2 FiO2 Ratio Arterial Blood 448; Potassium Level - ABG 3.3 mmol/L (3.5-5.0); Total Hemoglobin 14.6 g/dL (12-16)
[2023-12-13 12:00] VITALS: BP 157/92; PULSE 77; O2SAT 97
--- NOTE | 2023-12-13 12:27 | PC.PHAR ---
Addendum entered by Ebony Lai 12/13/23 12:28: PT HAS TAKEN NO MEDICATIONS IN 2 DAYS. Original Note: PT STATES NO LONGER TAKES ASPIRIN 81MG (REMOVED FROM LIST). PT MISSED HER TRULICITY INJECTION ON SUNDAY THIS WEEK DUE TO BEING TOO ILL.
--- NOTE | 2023-12-13 12:32 | PC.NURSE ---
VERBAL ORDERS FOR NO BLOOD CULTURES TO BE DRAWN BEFORE ADMINSTERING ANTIBIOTIC.
[2023-12-13 12:33] LABS: Glucose Point of Care 329 mg/dL (70-110)
[2023-12-13] MEDS: cefTRIAXone 1,000 MG in sodium chloride 0.9% (plus) 50 ML 100 MG IV (12:34)
[2023-12-13 13:00] VITALS: BP 189/96; PULSE 72; O2SAT 96
[2023-12-13 14:19] LABS: Glucose Point of Care 222 mg/dL (70-110)
[2023-12-13 14:33] VITALS: BP 178/104; PULSE 90; RESP 17; O2SAT 96
== END 2023-12-13 14:38 | disposition home or self-care (01) ==
PROVIDERS: Emergency Provider Family Medicine; PCP Nurse Practitioner Family
DX: N30.90 Cystitis, unspecified without hematuria (principal); I12.9 Hypertensive chronic kidney disease with stage 1 through stage 4 chronic kidney disease, or unspecified chronic kidney disease; N18.9 Chronic kidney disease, unspecified; E11.22 Type 2 diabetes mellitus with diabetic chronic kidney disease; E11.40 Type 2 diabetes mellitus with diabetic neuropathy, unspecified; I25.10 Atherosclerotic heart disease of native coronary artery without angina pectoris; I25.2 Old myocardial infarction; E78.5 Hyperlipidemia, unspecified; Z90.5 Acquired absence of kidney
CPT/HCPCS: 36416; 36600; 71045; 80051; 80053; 81001; 82009; 82330; 82805; 82962; 83690; 83735; 85025; 87086; 93005; 96361; 96365; 96375; 96376; 99285; J0696; J1815; J7030

== ENCOUNTER → 2023-12-19 16:02 | Outpatient (BNVA) | payer OTHER, SELFPAY | PROVIDERS: PCP Nurse Practitioner Family; Visit Provider Nurse Practitioner Family | DX: E11.69 Type 2 diabetes mellitus with other specified complication (principal); Z79.4 Long term (current) use of insulin | CPT/HCPCS: 80053; 80061; 83036; 84443 ==

== ENCOUNTER 2024-02-19 14:40 | Outpatient (CLI) | payer OTHER, SELFPAY ==
--- NOTE | 2024-02-19 14:40 | MM_ITS ---
WS: [id number] BILATERAL 3D TOMOSYNTHESIS DIGITAL SCREENING MAMMOGRAPHY WITH CAD CLINICAL INFORMATION: Z12.39 - Encounter for other screening for malignant neop... HISTORY: Screening mammogram. No current complaints. COMPARISON: 10/11/2022 TECHNIQUE: Bilateral CC and MLO views. FINDINGS: The breasts are composed of heterogeneous fibroglandular density tissue, which can limit the detectio n of small underlying mass lesions. No suspicious mass, asymmetry, calcifications, or architectural d istortion. No evidence of malignancy. Incidental punctate calcifications LEFT breast. MM/[place] [id number] IMPRESSION: DENSITY:The breasts are heterogeneously dense, which may obscure small masses. BI-RADS: 2 - Benign FOLLOW UP: 1 Year Follow-up Recommend return to annual screening mammography.
== END 2024-02-19 14:41 | disposition home or self-care (01) ==
LOC: MOBLMAM 14:44
PROVIDERS: PCP Nurse Practitioner Family; Visit Provider Nurse Practitioner Family
DX: Z12.31 Encounter for screening mammogram for malignant neoplasm of breast (principal); R92.333 Mammographic heterogeneous density, bilateral breasts; R92.1 Mammographic calcification found on diagnostic imaging of breast
CPT/HCPCS: 77063; 77067

== ENCOUNTER → 2024-02-27 10:05 | Outpatient (BNVA) | payer OTHER, SELFPAY | PROVIDERS: PCP Nurse Practitioner Family; Visit Provider Podiatrist Foot & Ankle Surgery | DX: M79.671 Pain in right foot (principal); M79.672 Pain in left foot; M72.2 Plantar fascial fibromatosis | CPT/HCPCS: 73630 ==

== ENCOUNTER 2024-03-28 15:24 | Emergency (ER) | payer OTHER, SELFPAY ==
[2024-03-28 15:44] VITALS: BP 138/87; PULSE 66; RESP 17; TEMP 36.6; O2SAT 99; BMI 31.6
--- NOTE | 2024-03-28 16:48 | XRR_ITS ---
PROCEDURE INFORMATION: Exam: XR Right Elbow Exam date and time: 03/28/2024 5:25 PM Age: 63 years old Clinical indication: Pain; Elbow; Right; Additional info: Pain in right elbow with visual bruising along bicep and forearm, no specific injury known, noticed about a week ago TECHNIQUE: Imaging protocol: Radiologic exam of the right elbow. Views: 3 or more views. COMPARISON: No relevant prior studies available. FINDINGS: Bones/joints: There is contour abnormality and ill-defined lucency in the olecranon across the ulnar humeral articulation. This may represent a nondisplaced fracture of unknown chronicity versus an osteophyte formation. Soft tissues: Normal. XR/XR elbow RT min 3V* [id number] IMPRESSION: Contour abnormality and ill-defined lucency in the olecranon across the ulnar humeral articulation raises concern for fracture of unknown chronicity versus an osteophyte formation. Consider CT scan of the elbow for further evaluation if clinically warranted.
--- NOTE | 2024-03-28 17:23 | USR_ITS ---
PROCEDURE INFORMATION: Exam: US Duplex Right Upper Extremity Veins, Limited Exam date and time: 03/28/2024 5:53 PM Age: 63 years old Clinical indication: Other: Bruising; Additional info: Eval clot, large spont. Bruising with knot , on plavix TECHNIQUE: Imaging protocol: Real-time duplex ultrasound of the right Upper Extremity with 2-D leo scale, color Doppler flow and spectral waveform analysis with image documentation. Limited exam focused on the right upper extremity veins. COMPARISON: CR (UP EXM, ) 03/28/2024 5:25 PM FINDINGS: Right deep veins: Unremarkable. Axillary and brachial veins are patent throughout without thrombus. Normal Doppler waveforms. Normal compressibility and/or augmentation response. Visualized internal jugular and subclavian veins are patent. Superficial veins: Unremarkable. Visualized cephalic and basilic veins are patent without thrombus. Soft tissues: Underlying the region of visible bruising, there is heterogeneous density in the soft tissues consistent with edema and/or hematoma. US/[place] [id number] IMPRESSION: No evidence of deep vein thrombosis.
--- NOTE | 2024-03-28 17:25 | ED_ITS ---
HPI - Extremity Problem General: Chief complaint: Extremity Injury, Upper Stated complaint: right arm pain and bruising/knot without reason Time Seen by Provider: 03/28/24 17:06 Source: patient Mode of arrival: ambulatory Limitations: no limitations History of Present Illness: Patient presents emergency department today for evaluation and treatment of spontaneous bruise to the right posterior elbow and knot . 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 States she was wearing long sleeves and was not having any pain but, states when her came home that evening, gave her a hug and ran his hand down her arm and when he touched the back of her elbow, she noticed pain. She pulled up her sleeve and realize she had a large bruise there. She is on Plavix status post ID last year. She is diabetic and deals with neuropathy in her hands so often does not feel a lot of pain but, complains of a heaviness to the arm stating it is uncomfortable for her to try and lift up her arm-i.e. like driving here. States she was seen at the clinic but, was encouraged to come to the emergency department as they were concerned for a vascular issue and recommended an ultrasound. Patient has circumferential right elbow discomfort with a centralized knot approximately 2-1/2 cm in diameter located to the posterior, lateral side of her elbow. Patient has total area of bruising approximately 10 to 12 cm in diameter-skin is otherwise soft. No signs of open wounds, abrasions, bites or vesicles. Bruising is a dark purple/blue/red color at this time. States she feels like her right hand is cold. Related Data Home Medications Medication Instructions Recorded Confirmed budesonide 0.5 mg/2 mL suspension 0.5 mg inhalation BID PRN 12/13/23 02/27/24 for nebulization Shortness Of Breath ciclopirox 1 % shampoo See Rx Instructions .Route .COMPLEX 12/13/23 02/27/24 linzess PO 01/02/24 02/27/24 Previous Rx's Medication Instructions Recorded apremilast 30 mg tablet (Otezla) 30 mg PO BID #60 tabs 03/24/22 buspirone 10 mg tablet 10 mg PO TID PRN anxiety #90 tabs 08/27/23 albuterol sulfate 2.5 mg/3 mL 2.5 mg (3 mL) inhalation QID PRN 10/16/23 (0.083 %) solution for nebulization shortness of breath or wheezing #75 mL compressor, for nebulizer #1 ea 10/16/23 albuterol sulfate 90 mcg/actuation 2 puff inhalation QID PRN 11/13/23 aerosol inhaler shortness of breath or wheezing #6.7 grams aspirin 81 mg capsule 81 mg PO DAILY #90 caps 01/02/24 blood-glucose meter,continuous #2 ea 01/07/24 (FreeStyle Oneyda 3 [place]) atorvastatin 40 mg tablet 40 mg PO BEDTIME #90 tabs 02/13/24 blood-glucose sensor (FreeStyle #2 ea 02/13/24 Oneyda 3 Sensor device) clopidogrel 75 mg tablet 75 mg PO DAILY #90 tabs 02/13/24 dulaglutide 4.5 mg/0.5 mL 4.5 mg (0.5 mL) SUBCUT .Weekly #2 02/13/24 subcutaneous pen injector mL duloxetine 60 mg capsule,delayed 60 mg PO BID 30 days #180 caps 02/13/24 release fluticasone propionate 50 1 spray intranasal Q12H 90 days 02/13/24 mcg/actuation nasal #48 grams spray,suspension (Flonase Allergy Relief) gabapentin 600 mg tablet 600 mg PO TID #90 tabs 02/13/24 insulin degludec 200 unit/mL (3 75 unit (0.375 mL) SUBCUT .at 02/13/24 mL) subcutaneous pen (Tresiba bedtime 90 days #9 mL FlexTouch U-200 insulin) lisinopril 20 mg tablet 20 mg PO DAILY #90 tabs 02/13/24 pantoprazole 40 mg tablet,delayed 40 mg PO DAILY #90 tabs 02/13/24 release pen needle, diabetic 31 gauge x #100 ea 02/13/2406/14 (1st Tier Unifine Pentips) prednisone 10 mg tablet 10 mg PO DAILY 12 days #42 tabs 02/27/24 Allergies Allergy/AdvReac Type Severity Reaction Status Date / Time aspirin Allergy Unknown Verified 03/28/24 15:53 fluconazole [From Diflucan] Allergy ALGY-Rash Verified 03/28/24 15:53 Penicillins Allergy Unknown Verified 03/28/24 15:53 pregabalin [From Lyrica] Allergy Unknown Verified 03/28/24 15:53 Sulfa (Sulfonamide Allergy Unknown Verified 03/28/24 15:53 Antibiotics) sulfamethoxazole Allergy Unknown Verified 03/28/24 15:53 [From Bactrim] trimethoprim [From Bactrim] Allergy Unknown Verified 03/28/24 15:53 Review of Systems General: Reports: 10 or more systems reviewed and unremarkable except in HPI and below PFSH ED PFSH: Medical History Atherosclerosis of coronary artery Chronic constipation Osteoarthritis Diabetic neuropathy Elevated d-dimer Single kidney Hypertension Non-ST elevation ID (NSTEMI) History of herpes zoster 3 para 3 History of echocardiogram 12/2020 EF 60% History of cardiovascular stress test 04/2021 normal ekg response to lexiscan infusion and normal myocardial perfusion imaging Plaque psoriasis Lichen sclerosus Primary osteoarthritis of both hands Hyperlipidemia Diabetes mellitus CKD (chronic kidney disease) Surgical History History of exploratory laparotomy To evaluate abnormalities of left kidney many years ago History of left nephrectomy Approximately 39 years ago, issues secondary to either childhood or developmental abnormalities History of esophagogastroduodenoscopy (EGD) History of hysterectomy Partial, an ovary remains History of renal stent left kidney secondary to issues that ultimately led to removal of left kidney Family History Mother Diabetes Sister Diabetes Stroke Brother Diabetes Clotting disorder Heart disease Cancer bladder cancer Brother Heart disease Hypertension Denies family history of Colon cancer Ovarian cancer Hyperlipidemia Breast cancer Bleeding disorder Uterine cancer Social History Smoking and tobacco/nicotine status: never used tobacco/nicotine Alcohol intake: never Substance/Drug Use: never Marital status: Physical Exam Const: COMMON NORMALS: no acute distress, patient oriented x3 and alert HENMT: COMMON NORMALS: normocephalic, atraumatic and hearing grossly normal bilaterally HEAD & SCALP: normocephalic and atraumatic Eye: COMMON NORMALS: Equal, round and reactive pupils present, EOMs intact bilaterally and conjunctivae normal CONJUNCTIVA: Yes conjunctivae normal PUPIL: Yes Equal, round and reactive pupils present Neck/C-Spine: COMMON NORMALS: full ROM and no JVD Lymph: LYMPHATIC: no lymphadenopathy noted Resp: COMMON NORMALS: normal respiratory effort, No retractions and No use of accessory muscles Cardio: COMMON NORMALS: no JVD and regular rate RATE: regular rate Extremity: NARRATIVE EXTREMITY EXAM: Patient still has range of motion to the elbow full flexion extension capabilities noted. Full flexion extension capabilities of the fingers on the right hand as well. Generalized tenderness to the right elbow circumferentially. Forearm compartments soft. Patient has strong radial pulse palpable on her examination. Neuro: COMMON NORMALS: patient oriented x3 SENSORIUM/ORIENTATION: Yes alert Psych: COMMON NORMALS: mental status grossly normal, Normal thought process present, cooperative and normal affect THOUGHT PROCESS: Normal thought process present Skin: COMMON NORMALS: no rashes or lesions noted and turgor normal NARRATIVE SKIN EXAM: Patient with overall hematoma approximately 10 to 12 cm in diameter affecting the posterior right elbow with a knot approximately 2-1/2 cm in diameter palpated to the posterior, lateral portion of the elbow. No open wounds or signs of bites. brisk cap refill. GENERAL SKIN EXAM: no rashes or lesions noted and turgor normal Course Vital Signs: Vital signs: Vital Signs Temperature 97.8 F 03/28/24 15:44 Pulse Rate 66 03/28/24 15:44 Respiratory Rate 17 03/28/24 15:44 Blood Pressure 138/87 03/28/24 15:44 Pulse Oximetry 99 03/28/24 15:44 Oxygen Delivery Me thod Room Air 03/28/24 15:44 MDM - Extremity (Nontraumatic) Medical Decision Making Patient presented to the emergency department today for concerns of increased discomfort, right arm heaviness, and large hematoma to posterior elbow. 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 Patient has a knot on the lateral portion of the posterior right elbow and is on Plavix. While she had no known injury, did obtain an x- ray in addition to an ultrasound to evaluate vasculature. No signs of DVT was found on ultrasound but, x-ray is suspicious for a potential fracture. Patient indicated that when she was thinking about it, it did actually pull a cord from an outlet extremely hard and may have injured her elbow at that point. Because she is on Plavix, patient may have had worsening bruising as well. Either way, as patient is experiencing pain and a large hematoma in this area, we will treat for the potential fracture by placing her in a splint and giving her sling. I have also requested a follow-up appointment with orthopedics for her to be further evaluated. They can discuss whether or not higher level imaging is necessary at that time. Discussed all this with the patient who verbalizes her understanding and agreement to treatment plan. Differential Diagnosis Unlikely cellulitis, superficial thrombophlebitis or deep venous thrombosis of upper extremity Lab Data Radiology Impressions Elbow X-Ray 03/28/24 16:48 IMPRESSION: Contour abnormality and ill-defined lucency in the olecranon across the ulnar humeral articulation raises concern for fracture of unknown chronicity versus an osteophyte formation. Consider CT scan of the elbow for further evaluation if clinically warranted. Venous Duplex 03/28/24 17:23 IMPRESSION: No evidence of deep vein thrombosis. All radiology interpretation(s) finalized by discharge Discharge Plan Discharge Patient Disposition: Home Clinical Impression: Hematoma, Chronic anticoagulation, Elbow pain, right Condition: Stable Prescriptions: No Action prednisone 10 mg tablet 10 mg PO DAILY 12 Days Qty: 42 0RF Rx Instructions: 12 day taper Instructions on how to take was given to patient in clinic. linzess PO (DME) compressor, for nebulizer Device See Rx Instructions .Route Qty: 1 0RF Rx Instructions: As directed albuterol sulfate 2.5 mg /3 mL (0.083 %) solution for nebulization 2.5 mg inhalation QID PRN (Reason: shortness of breath or wheezing) Qty: 75 0RF albuterol sulfate 90 mcg/actuation HFA aerosol inhaler 2 puff inhalation QID PRN (Reason: shortness of breath or wheezing) Qty: 6.7 0RF atorvastatin 40 mg tablet 40 mg PO BEDTIME Qty: 90 0RF dulaglutide 4.5 mg/0.5 mL pen injector 4.5 mg SUBCUT .Weekly Qty: 2 2RF Rx Instructions: SUNDAY clopidogrel 75 mg tablet 75 mg PO DAILY Qty: 90 0RF duloxetine 60 mg capsule,delayed release(DR/EC) 60 mg PO BID 30 Days Qty: 180 0RF fluticasone propionate [Flonase Allergy Relief] 50 mcg/actuation spray,suspension 1 spray intranasal Q12H 90 Days Qty: 48 0RF Rx Instructions: administer into each nostril Tresiba FlexTouch U-200 200 unit/mL (3 mL) insulin pen 75 unit SUBCUT .at bedtime 90 Days Qty: 9 0RF lisinopril 20 mg tablet 20 mg PO DAILY Qty: 90 0RF pantoprazole 40 mg tablet,delayed release (DR/EC) 40 mg PO DAILY Qty: 90 0RF (DME) pen needle, diabetic [1st Tier Unifine Pentips] 31 gauge x 1/4 needle See Rx Instructions .ROUTE .MEDSUPPLY Qty: 100 12RF Rx Instructions: As directed (DME) FreeStyle Oneyda 3 Sensor Device See Rx Instructions .Route Qty: 2 5RF Rx Instructions: As directed gabapentin 600 mg tablet 600 mg PO TID Qty: 90 0RF Otezla 30 mg tablet 30 mg PO BID Qty: 60 4RF buspirone 10 mg tablet 10 mg PO TID PRN (Reason: anxiety) Qty: 90 0RF aspirin 81 mg capsule 81 mg PO DAILY Qty: 90 3RF (DME) FreeStyle Oneyda 3 [place] Misc See Rx Instructions .Route Qty: 2 5RF Rx Instructions: As directed budesonide 0.5 mg/2 mL suspension for nebulization 0.5 mg inhalation BID PRN (Reason: Shortness Of Breath) ciclopirox 1 % shampoo See Rx Instructions .ROUTE .COMPLEX Rx Instructions: Apply to scalp 2-3 times weekly. Allow to sit 5 minutes, then rinse. Discharge Orders: Discharge ED (Routine); Ordered 03/28/24 Ordered By: Pippa Herbert Referrals: Sara Browning FNP-[facility] [Primary Care Provider] - Discharge Diet: Usual diet Discharge Activity: Limit activity as instructed Patient Instructions: Elbow Fracture (ED), Hematoma (ED) Activity Restrictions/Additional Instructions: Ultrasound today showed no signs of any blood clot. You do have obvious findings of a large hematoma to the back of your right elbow and, the x-ray found an area of irregularity suspicious for a potential fracture. Given the sudden onset of your discomfort, continue discomfort, and large bruise, would suspect some type of injury to have occurred. Because there is concerns of a fracture on your x-ray, I am going to put you into a splint and a sling and have you follow-up with orthopedics. They can determine whether or not higher level imaging is necessary at that time. Your discomfort should noticeably improve with immobilization of the elbow and supporting of your arm. Given that you are on blood thinners, I recommend only taking Tylenol during this time. However, if you have sudden worsening of your pain-even with immobilization, inability to wiggle your fingers, or have severe swelling in your fingers you need to be seen and reevaluated before being seen by orthopedics. 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
--- NOTE | 2024-03-28 19:09 | W.ED.EXTPRO ---
HPI - Extremity Problem General: Chief complaint: Extremity Injury, Upper Stated complaint: right arm pain and bruising/knot without reason Time Seen by Provider: 03/28/24 17:06 Source: patient Mode of arrival: ambulatory Limitations: no limitations Related Data Home Medications Medication Instructions Recorded Confirmed budesonide 0.5 mg/2 mL suspension 0.5 mg inhalation BID PRN 12/13/23 02/27/24 for nebulization Shortness Of Breath ciclopirox 1 % shampoo See Rx Instructions .Route .COMPLEX 12/13/23 02/27/24 linzess PO 01/02/24 02/27/24 Previous Rx's Medication Instructions Recorded apremilast 30 mg tablet (Otezla) 30 mg PO BID #60 tabs 03/24/22 buspirone 10 mg tablet 10 mg PO TID PRN anxiety #90 tabs 08/27/23 albuterol sulfate 2.5 mg/3 mL 2.5 mg (3 mL) inhalation QID PRN 10/16/23 (0.083 %) solution for nebulization shortness of breath or wheezing #75 mL compressor, for nebulizer #1 ea 10/16/23 albuterol sulfate 90 mcg/actuation 2 puff inhalation QID PRN 11/13/23 aerosol inhaler shortness of breath or wheezing #6.7 grams aspirin 81 mg capsule 81 mg PO DAILY #90 caps 01/02/24 blood-glucose meter,continuous #2 ea 01/07/24 (FreeStyle Oneyda 3 [place]) atorvastatin 40 mg tablet 40 mg PO BEDTIME #90 tabs 02/13/24 blood-glucose sensor (FreeStyle #2 ea 02/13/24 Oneyda 3 Sensor device) clopidogrel 75 mg tablet 75 mg PO DAILY #90 tabs 02/13/24 dulaglutide 4.5 mg/0.5 mL 4.5 mg (0.5 mL) SUBCUT .Weekly #2 02/13/24 subcutaneous pen injector mL duloxetine 60 mg capsule,delayed 60 mg PO BID 30 days #180 caps 02/13/24 release fluticasone propionate 50 1 spray intranasal Q12H 90 days 02/13/24 mcg/actuation nasal #48 grams spray,suspension (Flonase Allergy Relief) gabapentin 600 mg tablet 600 mg PO TID #90 tabs 02/13/24 insulin degludec 200 unit/mL (3 75 unit (0.375 mL) SUBCUT .at 02/13/24 mL) subcutaneous pen (Tresiba bedtime 90 days #9 mL FlexTouch U-200 insulin) lisinopril 20 mg tablet 20 mg PO DAILY #90 tabs 02/13/24 pantoprazole 40 mg tablet,delayed 40 mg PO DAILY #90 tabs 02/13/24 release pen needle, diabetic 31 gauge x #100 ea 02/13/2406/14 (1st Tier Unifine Pentips) prednisone 10 mg tablet 10 mg PO DAILY 12 days #42 tabs 02/27/24 Allergies Allergy/AdvReac Type Severity Reaction Status Date / Time aspirin Allergy Unknown Verified 03/28/24 15:53 fluconazole [From Diflucan] Allergy ALGY-Rash Verified 03/28/24 15:53 Penicillins Allergy Unknown Verified 03/28/24 15:53 pregabalin [From Lyrica] Allergy Unknown Verified 03/28/24 15:53 Sulfa (Sulfonamide Allergy Unknown Verified 03/28/24 15:53 Antibiotics) sulfamethoxazole Allergy Unknown Verified 03/28/24 15:53 [From Bactrim] trimethoprim [From Bactrim] Allergy Unknown Verified 03/28/24 15:53 PFSH ED PFSH: Medical History Atherosclerosis of coronary artery Chronic constipation Osteoarthritis Diabetic neuropathy Elevated d-dimer Single kidney Hypertension Non-ST elevation OR (NSTEMI) History of herpes zoster 3 para 3 History of echocardiogram 12/2020 EF 60% History of cardiovascular stress test 04/2021 normal ekg response to lexiscan infusion and normal myocardial perfusion imaging Plaque psoriasis Lichen sclerosus Primary osteoarthritis of both hands Hyperlipidemia Diabetes mellitus CKD (chronic kidney disease) Surgical History History of exploratory laparotomy To evaluate abnormalities of left kidney many years ago History of left nephrectomy Approximately 39 years ago, issues secondary to either childhood or developmental abnormalities History of esophagogastroduodenoscopy (EGD) History of hysterectomy Partial, an ovary remains History of renal stent left kidney secondary to issues that ultimately led to removal of left kidney Family History Mother Diabetes Sister Diabetes Stroke Brother Diabetes Clotting disorder Heart disease Cancer bladder cancer Brother Heart disease Hypertension Denies family history of Colon cancer Ovarian cancer Hyperlipidemia Breast cancer Bleeding disorder Uterine cancer Social History Smoking and tobacco/nicotine status: never used tobacco/nicotine Alcohol intake: never Substance/Drug Use: never Marital status: Course Vital Signs: Vital signs: Vital Signs Temperature 97.8 F 03/28/24 15:44 Pulse Rate 66 03/28/24 15:44 Respiratory Rate 17 03/28/24 15:44 Blood Pressure 138/87 03/28/24 15:44 Pulse Oximetry 99 03/28/24 15:44 Oxygen Delivery Me thod Room Air 03/28/24 15:44 MDM - Extremity (Nontraumatic) Lab Data Radiology Impressions Elbow X-Ray 03/28/24 16:48 IMPRESSION: Contour abnormality and ill-defined lucency in the olecranon across the ulnar humeral articulation raises concern for fracture of unknown chronicity versus an osteophyte formation. Consider CT scan of the elbow for further evaluation if clinically warranted. Venous Duplex 03/28/24 17:23 IMPRESSION: No evidence of deep vein thrombosis. Discharge Plan Discharge Patient Disposition: Home Clinical Impression: Hematoma, Chronic anticoagulation, Elbow pain, right Condition: Stable Prescriptions: No Action prednisone 10 mg tablet 10 mg PO DAILY 12 Days Qty: 42 0RF Rx Instructions: 12 day taper Instructions on how to take was given to patient in clinic. linzess PO (DME) compressor, for nebulizer Device See Rx Instructions .Route Qty: 1 0RF Rx Instructions: As directed albuterol sulfate 2.5 mg /3 mL (0.083 %) solution for nebulization 2.5 mg inhalation QID PRN (Reason: shortness of breath or wheezing) Qty: 75 0RF albuterol sulfate 90 mcg/actuation HFA aerosol inhaler 2 puff inhalation QID PRN (Reason: shortness of breath or wheezing) Qty: 6.7 0RF atorvastatin 40 mg tablet 40 mg PO BEDTIME Qty: 90 0RF dulaglutide 4.5 mg/0.5 mL pen injector 4.5 mg SUBCUT .Weekly Qty: 2 2RF Rx Instructions: SUNDAY clopidogrel 75 mg tablet 75 mg PO DAILY Qty: 90 0RF duloxetine 60 mg capsule,delayed release(DR/EC) 60 mg PO BID 30 Days Qty: 180 0RF fluticasone propionate [Flonase Allergy Relief] 50 mcg/actuation spray,suspension 1 spray intranasal Q12H 90 Days Qty: 48 0RF Rx Instructions: administer into each nostril Tresiba FlexTouch U-200 200 unit/mL (3 mL) insulin pen 75 unit SUBCUT .at bedtime 90 Days Qty: 9 0RF lisinopril 20 mg tablet 20 mg PO DAILY Qty: 90 0RF pantoprazole 40 mg tablet,delayed release (DR/EC) 40 mg PO DAILY Qty: 90 0RF (DME) pen needle, diabetic [1st Tier Unifine Pentips] 31 gauge x 1/4 needle See Rx Instructions .ROUTE .MEDSUPPLY Qty: 100 12RF Rx Instructions: As directed (DME) FreeStyle Oneyda 3 Sensor Device See Rx Instructions .Route Qty: 2 5RF Rx Instructions: As directed gabapentin 600 mg tablet 600 mg PO TID Qty: 90 0RF Otezla 30 mg tablet 30 mg PO BID Qty: 60 4RF buspirone 10 mg tablet 10 mg PO TID PRN (Reason: anxiety) Qty: 90 0RF aspirin 81 mg capsule 81 mg PO DAILY Qty: 90 3RF (DME) FreeStyle Oneyda 3 [place] Misc See Rx Instructions .Route Qty: 2 5RF Rx Instructions: As directed budesonide 0.5 mg/2 mL suspension for nebulization 0.5 mg inhalation BID PRN (Reason: Shortness Of Breath) ciclopirox 1 % shampoo See Rx Instructions .ROUTE .COMPLEX Rx Instructions: Apply to scalp 2-3 times weekly. Allow to sit 5 minutes, then rinse. Discharge Orders: Discharge ED (Routine); Ordered 03/28/24 Ordered By: Pippa Herbert Referrals: Sara Browning FNP-C [Primary Care Provider] - Discharge Diet: Usual diet Discharge Activity: Limit activity as instructed Patient Instructions: Elbow Fracture (ED), Hematoma (ED) Activity Restrictions/Additional Instructions: Ultrasound today showed no signs of any blood clot. You do have obvious findings of a large hematoma to the back of your right elbow and, the x-ray found an area of irregularity suspicious for a potential fracture. Given the sudden onset of your discomfort, continue discomfort, and large bruise, would suspect some type of injury to have occurred. Because there is concerns of a fracture on your x-ray, I am going to put you into a splint and a sling and have you follow-up with orthopedics. They can determine whether or not higher level imaging is necessary at that time. Your discomfort should noticeably improve with immobilization of the elbow and supporting of your arm. Given that you are on blood thinners, I recommend only taking Tylenol during this time. However, if you have sudden worsening of your pain-even with immobilization, inability to wiggle your fingers, or have severe swelling in your fingers you need to be seen and reevaluated before being seen by orthopedics. Coding Level of Care Code ED [employer] for Daisy Shahid
[2024-03-28 19:34] VITALS: BP 129/72; PULSE 71; RESP 17; O2SAT 99
--- NOTE | 2024-03-31 08:33 | DCPLANNER ---
messaged ortho for er f/u
== END 2024-03-28 19:37 | disposition home or self-care (01) ==
PROVIDERS: Emergency Provider Physician Assistant; PCP Nurse Practitioner Family
DX: M25.521 Pain in right elbow (principal); S50.01XA Contusion of right elbow, initial encounter; Z79.01 Long term (current) use of anticoagulants; Z79.85 Long-term (current) use of injectable non-insulin antidiabetic drugs; Z79.4 Long term (current) use of insulin; Z79.82 Long term (current) use of aspirin; I25.10 Atherosclerotic heart disease of native coronary artery without angina pectoris; E11.22 Type 2 diabetes mellitus with diabetic chronic kidney disease; I12.9 Hypertensive chronic kidney disease with stage 1 through stage 4 chronic kidney disease, or unspecified chronic kidney disease; N18.9 Chronic kidney disease, unspecified; I25.2 Old myocardial infarction; E78.5 Hyperlipidemia, unspecified; X58.XXXA Exposure to other specified factors, initial encounter
CPT/HCPCS: 29105; 73080; 93971; 99284

== ENCOUNTER → 2024-04-02 09:44 | Outpatient (BNVA) | payer OTHER, SELFPAY | PROVIDERS: PCP Nurse Practitioner Family; Visit Provider Specialist | DX: M25.521 Pain in right elbow (principal); S52.021A Displaced fracture of olecranon process without intraarticular extension of right ulna, initial encounter for closed fracture; X50.9XXA Other and unspecified overexertion or strenuous movements or postures, initial encounter | CPT/HCPCS: 73080 ==

== ENCOUNTER 2024-04-02 12:11 | Outpatient (CLI) | payer OTHER, SELFPAY | END 2024-04-02 12:12 | disposition home or self-care (01) | LOC: SPT 12:12 | PROVIDERS: PCP Nurse Practitioner Family; Visit Provider Specialist | DX: Z46.89 Encounter for fitting and adjustment of other specified devices (principal); M25.521 Pain in right elbow | CPT/HCPCS: 97760; L3761 ==

== ENCOUNTER 2024-04-09 13:52 | Outpatient (CLI) | payer OTHER, SELFPAY ==
--- NOTE | 2024-04-09 14:00 | CTR_ITS ---
PROCEDURE INFORMATION: Exam: CT Right Upper Extremity Without Contrast, Elbow Exam date and time: 04/09/2024 2:18 PM Age: 63 years old Clinical indication: Injury or trauma; Sprain or strain; Right; Injury details: PT states she moved a chair 03/20/24 and broke elbow. TECHNIQUE: Imaging protocol: Computed tomography of the right upper extremity without contrast. Exam focused on the elbow. Radiation optimization: All CT scans at this facility use at least one of these dose optimization techniques: automated exposure control; mA and/or kV adjustment per patient size (includes targeted exams where dose is matched to clinical indication); or iterative reconstruction. COMPARISON: CR XR elbow RT min 3V* [id number] 04/02/2024 9:48 AM RADIATION DOSE METRICS: Total DLP (mGy-cm): 94.08 FINDINGS: Bones/joints: Thin linear bony flecks adjacent to the radial tuberosity. No acute fracture or dislocation. Soft tissues: Mild soft tissue swelling and fat stranding along the posterior aspect of the elbow. No joint effusion. CT/CT elbow RT wo con* [id number] IMPRESSION: 1. Thin linear bony flecks adjacent to the radial tuberosity, which suggest very minor periosteal avulsion. There is otherwise no acute fracture or dislocation. 2. Mild soft tissue swelling of the posterior aspect of the elbow.
== END 2024-04-09 13:53 | disposition home or self-care (01) ==
LOC: RAD 13:53
PROVIDERS: PCP Nurse Practitioner Family; Visit Provider Specialist
DX: S53.431A Radial collateral ligament sprain of right elbow, initial encounter (principal); X58.XXXA Exposure to other specified factors, initial encounter
CPT/HCPCS: 73200

== ENCOUNTER 2024-04-16 06:00 | Outpatient (RCR) | payer OTHER, SELFPAY | END 2024-05-10 23:59 | disposition home or self-care (01) | LOC: APT 06:00 | PROVIDERS: PCP Nurse Practitioner Family; Visit Provider Podiatrist Foot & Ankle Surgery | DX: M72.2 Plantar fascial fibromatosis (principal) | CPT/HCPCS: 97110; 97112; 97140; 97162; 97530 ==

== ENCOUNTER → 2024-04-23 11:33 | Outpatient (BNVA) | payer OTHER, SELFPAY | PROVIDERS: PCP Nurse Practitioner Family; Visit Provider Nurse Practitioner Family | DX: E11.69 Type 2 diabetes mellitus with other specified complication (principal); Z79.4 Long term (current) use of insulin; E11.40 Type 2 diabetes mellitus with diabetic neuropathy, unspecified; M25.50 Pain in unspecified joint | CPT/HCPCS: 80053; 80061; 83036; 84443; 85025; 85651; 86140; 86160; 86162; 86235; 86255; 86376; 86431 ==

== ENCOUNTER 2024-04-24 06:45 | Outpatient (CLI) | payer OTHER, SELFPAY ==
--- NOTE | 2024-04-24 07:15 | MRR_ITS ---
PROCEDURE INFORMATION: Exam: MR Right Upper Extremity Joint Without Contrast; Elbow Exam date and time: 04/24/2024 6:57 AM Age: 63 years old Clinical indication: Injury or trauma; Sprain or strain; Patient HX: S/P injury/ lifting-type inj, C/O right elbow pain with limited mobility. Note: Positioning limited b/c of pt's ability to straighten right arm. ; Additional info: S46.219a - strain of muscle, fascia and tendon of other p. . . , Rule out distal biceps tendon tear TECHNIQUE: Imaging protocol: Magnetic resonance imaging of the right upper extremity without contrast. Exam focused on the elbow. COMPARISON: CT elbow RT wo con* [id number] 04/09/2024 2:18 PM FINDINGS: Bones/joints: Normal alignment. No focal osseous lesion. No acute fracture. The articular cartilage appears intact. No joint effusion. Ulnar (medial) collateral ligament: Unremarkable. No tear. Radial collateral ligament of the elbow: Unremarkable. No tear. Annular ligament of the radius: Unremarkable. No tear. Tendon of the biceps brachii: Unremarkable. No tear. Tendon of the brachialis: No evidence of tear. A short segment of mild abnormal increased signal intensity within the tendon is identified approximately 1.5 cm proximal to the distal insertion site on the axial series 4 which may be artifactual, not definitively confirmed on the additional sequences. Triceps tendon: Unremarkable. No tear. Common flexor tendon: Unremarkable. No tear. Common extensor tendon: Moderate partial tearing of the common extensor tendon is noted. Soft tissues: Mild posterior subcutaneous edema is noted. MR/MR elbow RT wo con* [id number] IMPRESSION: 1. Moderate partial tear of the common extensor tendon. 2. Mild posterior subcutaneous edema is nonspecific, possibly related to contusion in the setting of trauma. 3. Possible mild distal biceps tendinosis. No evidence of tear of the biceps tendon as clinically questioned.
== END 2024-04-24 06:46 | disposition home or self-care (01) ==
LOC: RAD 06:45
PROVIDERS: PCP Nurse Practitioner Family; Visit Provider Specialist
DX: S56.512A Strain of other extensor muscle, fascia and tendon at forearm level, left arm, initial encounter (principal); X58.XXXA Exposure to other specified factors, initial encounter
CPT/HCPCS: 73221

== ENCOUNTER 2024-05-05 06:00 | Outpatient (RCR) | payer OTHER, SELFPAY | END 2024-05-10 23:59 | disposition home or self-care (01) | LOC: APT 06:00 | PROVIDERS: PCP Nurse Practitioner Family; Visit Provider Specialist | DX: M67.823 Other specified disorders of tendon, right elbow (principal) | CPT/HCPCS: 97110; 97161; 97530 ==

== ENCOUNTER 2024-05-11 06:00 | Outpatient (RCR) | payer OTHER, SELFPAY | END 2024-06-10 23:59 | disposition home or self-care (01) | LOC: APT 06:00 | PROVIDERS: PCP Nurse Practitioner Family; Visit Provider Podiatrist Foot & Ankle Surgery | DX: M72.2 Plantar fascial fibromatosis (principal) | CPT/HCPCS: 97033; 97035; 97110; 97112; 97140; 97530 ==

== ENCOUNTER 2024-05-11 06:00 | Outpatient (RCR) | payer OTHER, SELFPAY | END 2024-06-10 23:59 | disposition home or self-care (01) | LOC: APT 06:00 | PROVIDERS: PCP Nurse Practitioner Family; Visit Provider Specialist | DX: M67.823 Other specified disorders of tendon, right elbow (principal) | CPT/HCPCS: 97110; 97112; 97530 ==

== ENCOUNTER 2024-05-19 16:16 | Emergency (ER) | payer OTHER, SELFPAY ==
[2024-05-19 16:28] VITALS: BP 145/112; PULSE 75; RESP 15; TEMP 36.7; O2SAT 98; BMI 31.4
[2024-05-19 18:12] LABS: Basophils # 0.1 10^3/uL (0.0-0.1); Basophils % 0.5 %; Eosinophils # 0.5 10^3/uL (0.0-0.8); Eosinophils % 3.8 %; Hematocrit 41.6 % (36-47); Lymphocytes # 4.2 10^3/uL (0.8-4.8); Lymphocytes % 35.6 %; Mean Corpuscular HGB Conc 34.6 g/dL (30-55); Mean Corpuscular Hemoglobin 29.5 pg (27-33); Mean Corpuscular Volume 85.2 fl (85-98); Mean Platelet Volume 10.1 fL (7.4-10.4); Monocytes # 0.6 10^3/uL (0.2-0.9); Monocytes % 5.4 %; Neutrophils # 6.39 10^3/uL (1.8-7.7); Neutrophils % 54.4 %; Nucleated Red Blood Cells % 0 %; Platelet Count 326 10^3/cmm (157-399); Red Blood Count 4.88 10^6/uL (3.85-5.65); White Blood Count 11.76 10^3/uL (3.29-11.43)
[2024-05-19 18:29] LABS: Alanine Aminotransferase 18 U/L (0-33); Alkaline Phosphatase 79 U/L (35-105); Aspartate Amino Transferase 16 U/L (0-32); Blood Urea Nitrogen 17 mg/dL (8-23); Calcium 9.5 mg/dL (8.5-10.5); Carbon Dioxide 24 mmol/L (22-29); Chloride 96 mmol/L (98-107); Creatinine Clr Calc Pharmacy 68.4171; Globulin 3.4 g/dL (1.3-4.6); Glomerular Filtration Rate 63.7 mL/min (90-130); Glucose 396 mg/dL (65-115); Lipase 44 U/L (13-60); Osmolality Calculated 290 mOsm/kg (285-295); Sodium 131 mmol/L (136-145); Total Bilirubin 0.6 mg/dL (0.15-1.2); Total Protein 7.4 g/dL (6.6-8.7)
--- NOTE | 2024-05-19 18:30 | ED_ITS ---
HPI - Female Genitourinary 2 General: Chief complaint: Urogenital-Female Stated complaint: right side pain, n v Time Seen by Provider: 05/19/24 16:37 Source: patient Mode of arrival: ambulatory Limitations: no limitations History of Present Illness: Patient is a 63-year-old female with past medical history of diabetes, NSTEMI, CKD who presents to the emergency department complaining of right flank pain since last . Of note, she has only 1 kidney, on the right side, as she states her left kidney collapsed 40+ years ago. She notes that she has a history of UTIs and this feels similar, though pain has lasted longer than normal. She states the pain has been as severe as a 10/10, is currently a 6. However she states she has not been sleeping due to the pain, and she feels it constantly. She notes her urine has been more cloudy. No history of kidney stones. She notes she has felt feverish, and has had chills. Also is noting nausea and a couple episodes of vomiting late last week. She reports a history of diabetic neuropathy, and says that it has been increased recently which she thinks is from the stress/pain. Blood glucose reportedly normally in the 150s, she takes insulin and Trulicity. She denies any rash, states she has had a longstanding history of herpes zoster and she is medicated for this. She has not taken anything for her pain. She notes that 2 years ago she had an NSTEMI, she has been on blood thinner since. MD elicited complaint: flank pain Onset (ago): day(s) Location of symptoms: flank Severity: severe Female Urogenital Radiation: LRQ Severity scale (1-10): 6 Quality of pain: sharp Consistency: constant Associated symptoms: Reports nausea; Deny abdominal pain or headache(s) Treatment prior to arrival: none Related Data Home Medications Medication Instructions Recorded Confirmed budesonide 0.5 mg/2 mL suspension 0.5 mg inhalation BID PRN 12/13/23 05/14/24 for nebulization Shortness Of Breath ciclopirox 1 % shampoo See Rx Instructions .Route .COMPLEX 12/13/23 05/14/24 linzess PO 01/02/24 05/14/24 Previous Rx's Medication Instructions Recorded apremilast 30 mg tablet (Otezla) 30 mg PO BID #60 tabs 03/24/22 albuterol sulfate 2.5 mg/3 mL 2.5 mg (3 mL) inhalation QID PRN 10/16/23 (0.083 %) solution for nebulization shortness of breath or wheezing #75 mL compressor, for nebulizer #1 ea 10/16/23 albuterol sulfate 90 mcg/actuation 2 puff inhalation QID PRN 11/13/23 aerosol inhaler shortness of breath or wheezing #6.7 grams aspirin 81 mg capsule 81 mg PO DAILY #90 caps 01/02/24 blood-glucose meter,continuous #2 ea 01/07/24 (FreeStyle Oneyda 3 Callahan) prednisone 10 mg tablet 10 mg PO DAILY 12 days #42 tabs 02/27/24 Hinged Elbow Brace, right #1 ea 04/02/24 atorvastatin 40 mg tablet 40 mg PO BEDTIME #90 tabs 04/23/24 blood-glucose sensor (FreeStyle #2 ea 04/23/24 Oneyda 3 Sensor device) buspirone 10 mg tablet 10 mg PO TID PRN anxiety #90 tabs 04/23/24 clopidogrel 75 mg tablet 75 mg PO DAILY #90 tabs 04/23/24 dulaglutide 4.5 mg/0.5 mL 4.5 mg (0.5 mL) SUBCUT .Weekly #2 04/23/24 subcutaneous pen injector mL duloxetine 60 mg capsule,delayed 60 mg PO BID 30 days #180 caps 04/23/24 release fluticasone propionate 50 1 spray intranasal Q12H 90 days 04/23/24 mcg/actuation nasal #48 grams spray,suspension (Flonase Allergy Relief) gabapentin 600 mg tablet 600 mg PO TID #90 tabs 04/23/24 insulin degludec 200 unit/mL (3 75 unit (0.375 mL) SUBCUT .at 04/23/24 mL) subcutaneous pen (Tresiba bedtime 90 days #9 mL FlexTouch U-200 insulin) lisinopril 20 mg tablet 20 mg PO DAILY #90 tabs 04/23/24 pantoprazole 40 mg tablet,delayed 40 mg PO DAILY #90 tabs 04/23/24 release pen needle, diabetic 31 gauge x #100 ea 04/23/2406/14 (1st Tier Unifine Pentips) sole supports #1 ea 05/14/24 cefdinir 300 mg capsule 300 mg PO BID 7 days #14 caps 05/19/24 Allergies Allergy/AdvReac Type Severity Reaction Status Date / Time aspirin Allergy Unknown Verified 05/19/24 16:36 fluconazole [From Diflucan] Allergy ALGY-Rash Verified 05/19/24 16:36 Penicillins Allergy Unknown Verified 05/19/24 16:36 pregabalin [From Lyrica] Allergy Unknown Verified 05/19/24 16:36 Sulfa (Sulfonamide Allergy Unknown Verified 05/19/24 16:36 Antibiotics) sulfamethoxazole Allergy Unknown Verified 05/19/24 16:36 [From Bactrim] trimethoprim [From Bactrim] Allergy Unknown Verified 05/19/24 16:36 Review of Systems 2 General: Reports: 10 or more systems reviewed and unremarkable except in HPI and below Const: Reports: fever(s) and chills; Denies: change in appetite, change in weight or diaphoresis ENMT: Denies: throat pain or hoarseness Card: Denies: chest pain, palpitations or lightheadedness Resp: Denies: dyspnea, productive cough or wheezing GI: Reports: nausea and vomiting; Denies: abdominal pain, diarrhea, constipation, bloating, change in stool character or hematochezia : Reports: flank pain and other (Cloudy urine); Denies: difficulty voiding, dysuria, urinary frequency or urinary urgency Musc: Denies: neck pain or back pain Skin/Breast: Denies: rash or new lesions Neuro: Denies: headache(s) or dizziness PFSH ED 2 PFSH: Medical History Atherosclerosis of coronary artery Chronic constipation Osteoarthritis Diabetic neuropathy Elevated d-dimer Single kidney Hypertension Non-ST elevation ME (NSTEMI) History of herpes zoster 3 para 3 History of echocardiogram 12/2020 EF 60% History of cardiovascular stress test 04/2021 normal ekg response to lexiscan infusion and normal myocardial perfusion imaging Plaque psoriasis Lichen sclerosus Primary osteoarthritis of both hands Hyperlipidemia Diabetes mellitus CKD (chronic kidney disease) Surgical History History of exploratory laparotomy To evaluate abnormalities of left kidney many years ago History of left nephrectomy Approximately 39 years ago, issues secondary to either childhood or developmental abnormalities History of esophagogastroduodenoscopy (EGD) History of hysterectomy Partial, an ovary remains History of renal stent left kidney secondary to issues that ultimately led to removal of left kidney Family History Mother Diabetes Sister Diabetes Stroke Brother Diabetes Clotting disorder Heart disease Cancer bladder cancer Brother Heart disease Hypertension Denies family history of Colon cancer Ovarian cancer Hyperlipidemia Breast cancer Bleeding disorder Uterine cancer Social History Smoking and tobacco/nicotine status: never used tobacco/nicotine Alcohol intake: never Substance/Drug Use: never Marital status: Physical Exam 2 Const: COMMON NORMALS: no acute distress, average body habitus, patient oriented x3, no limitations, healthy appearing, alert and well nourished G ENERAL APPEARANCE: cooperative and comfortable ORIENTATION/CONSCIOUSNESS: Yes awake HENMT: COMMON NORMALS: normocephalic, atraumatic, hearing grossly normal bilaterally, external ears normal, Normal external nose present, Normal nasal mucous membranes and turbinates present and moist oral mucous membranes HEAD & SCALP: normocephalic and atraumatic NOSE: Normal external nose present and Normal nasal mucous membranes and turbinates present EXTERNAL EAR: Yes external ears normal Eye: COMMON NORMALS: Equal, round and reactive pupils present, EOMs intact bilaterally, conjunctivae normal and normal visual newsome by confrontation C ONJUNCTIVA: Yes conjunctivae normal PUPIL: Yes Equal, round and reactive pupils present Neck/C-Spine: COMMON NORMALS: full ROM, supple, no meningeal signs and no JVD Resp: COMMON NORMALS: normal respiratory effort, No retractions, No use of accessory muscles and clear to auscultation bilaterally AUSCULTATION: clear to auscultation bilaterally, no crackles, no rales, no rhonchi and no wheezes Cardio: COMMON NORMALS: no JVD, regular rate, regular rhythm, S1 normal heart sound present, S2 normal heart sound present, No gallops present (Cardio), No clicks present (Cardio), No murmurs present (Cardio), No rub (Cardio) and Peripheral pulses 2+ throughout RATE: regular rate RHYTHM: regular rhythm HEART SOUNDS: S1 normal heart sound present and S2 normal heart sound present PERIPHERAL PULSES: Peripheral pulses 2+ throughout GI: COMMON NORMALS: Normal to inspection, nondistended, normoactive bowel sounds present, Soft to palpation, No hepatosplenomegaly present and no masses AUSCULTATION: Yes normoactive bowel sounds PALPATION: Yes Soft to palpation, Yes Tenderness to palpation present (GI) (Diffuse to light palpation), No Guarding due to palpation present (GI), No Rigid due to palpation and Yes No hepatosplenomegaly present RECTAL EXAM: deferred : BLADDER/KIDNEY EXAM: Yes CVA tenderness on the right Back/Pelvis: GENERAL BACK: Yes CVA tenderness Extremity: COMMON NORMALS: normal to inspection and full ROM Neuro: COMMON NORMALS: patient oriented x3, moves all extremities, no focal motor deficits and no sensory deficits noted SENSORIUM/ORIENTATION: Yes alert MENINGEAL SIGNS: Yes no meningeal signs Psych: COMMON NORMALS: mental status grossly normal, cooperative and speech normal SPEECH: Yes normal speech Skin: COMMON NORMALS: no rashes or lesions noted GENERAL SKIN EXAM: no rashes or lesions noted Course 2 Vital Signs: Vital signs: Vital Signs Temperature 98.1 F 05/19/24 16:28 Pulse Rate 67 05/19/24 21:09 Respiratory Rate 16 05/19/24 21:09 Blood Pressure 152/68 05/19/24 21:09 Pulse Oximetry 97 05/19/24 21:09 Oxygen Delivery Me thod Room Air 05/19/24 20:14 MDM - Female Medical Decision Making Patient complaining of sharp right flank pain evolving over the past few days. She has history of only 1 kidney, which is on the right side. Of note she was also reporting cloudy urine. Urinalysis did show evidence of a mild urinary tract infection when considering her being symptomatic. CT was normal, specifically no stone and no signs of pyelonephritis that would warrant calling specialist at this time. The rest of her lab work was unremarkable. Pain was controlled here in the emergency department. Her vitals have remained stable. We will treat with antibiotics on an outpatient basis for the mild UTI, however her side/flank pain at this time may be due to musculoskeletal pain. Of note she did recently undergo physical therapy for her right shoulder and right elbow and did have a large brace on, and onset of symptoms came right after removing his brace. Otherwise, strict return precautions were given. Lab Data 05/19/24 17:47 05/19/24 17:47 Radiology Impressions Abdomen/Pelvis CT 05/19/24 18:40 IMPRESSION: 1. No acute findings in the abdomen/pelvis. 2. Other findings as above are similar to prior. Laboratory Results WBC 11.76 10^3/uL (3.29-11.43) H 05/19/24 17:47 RBC 4.88 10^6/uL (3.85-5.65) 05/19/24 17:47 Hgb 14.40 g/dL (11.27-16.99) 05/19/24 17:47 Hct 41.6 % (36-47) 05/19/24 17:47 MCV 85.2 fl (85-98) 05/19/24 17:47 MCH 29.5 pg (27-33) 05/19/24 17:47 MCHC 34.6 g/dL (30-55) 05/19/24 17:47 RDW 12.0 % (12.1-15.1) L 05/19/24 17:47 Plt Count 326 10^3/cmm (157-399) 05/19/24 17:47 MPV 10.1 fL (7.4-10.4) 05/19/24 17:47 Neut % (Auto) 54.4 % 05/19/24 17:47 Lymph % (Auto) 35.6 % 05/19/24 17:47 [place] % (Auto) 5.4 % 05/19/24 17:47 Eos % (Auto) 3.8 % 05/19/24 17:47 Baso % (Auto) 0.5 % 05/19/24 17:47 Neut # (Auto) 6.39 10^3/uL (1.8-7.7) 05/19/24 17:47 Lymph # (Auto) 4.2 10^3/uL (0.8-4.8) 05/19/24 17:47 [place] # (Auto) 0.6 10^3/uL (0.2-0.9) 05/19/24 17:47 Eos # (Auto) 0.5 10^3/uL (0.0-0.8) 05/19/24 17:47 Baso # (Auto) 0.1 10^3/uL (0.0-0.1) 05/19/24 17:47 Nucleated RBC % (auto) 0 % 05/19/24 17:47 Nucleated RBCs # 0.0 /100WBC 05/19/24 17:47 Sodium 131 mmol/L (136-145) L 05/19/24 17:47 Potassium 4.0 mmol/L (3.5-5.1) 05/19/24 17:47 Chloride 96 mmol/L (98-107) L 05/19/24 17:47 Carbon Dioxide 24 mmol/L (22-29) 05/19/24 17:47 Anion Gap 15.0 (5-19) 05/19/24 17:47 BUN 17 mg/dL (8-23) 05/19/24 17:47 Creatinine 0.9 mg/dL (0.5-0.9) 05/19/24 17:47 GFR Calculation 63.7 mL/min (90-130) L 05/19/24 17:47 Glucose 396 mg/dL (65-115) H 05/19/24 17:47 Calculated Osmolality 290 mOsm/kg (285-295) 05/19/24 17:47 Calcium 9.5 mg/dL (8.5-10.5) 05/19/24 17:47 Total Bilirubin 0.6 mg/dL (0.15-1.2) 05/19/24 17:47 AST 16 U/L (0-32) 05/19/24 17:47 ALT 18 U/L (0-33) 05/19/24 17:47 Alkaline Phosphatase 79 U/L (35-105) 05/19/24 17:47 Total Protein 7.4 g/dL (6.6-8.7) 05/19/24 17:47 Albumin 4.0 g/dL (3.5-5.2) 05/19/24 17:47 Globulin 3.4 g/dL (1.3-4.6) 05/19/24 17:47 Lipase 44 U/L (13-60) 05/19/24 17:47 Urine Color Yellow (Yellow) 05/19/24 18:48 Urine Appearance Cloudy (CLEAR) A 05/19/24 18:48 Urine pH 5.0 (5-7) 05/19/24 18:48 Ur Specific [place] 1.039 (1.005-1.030) H 05/19/24 18:48 Urine Protein 2+ (Negative) A 05/19/24 18:48 Urine Glucose (UA) 3+ (Normal) H 05/19/24 18:48 Urine Ketones Trace (Negative) 05/19/24 18:48 Urine Blood Negative (Negative) 05/19/24 18:48 Urine Nitrate Negative (Negative) 05/19/24 18:48 Urine Bilirubin Negative (Negative) 05/19/24 18:48 Urine Urobilinogen 1.0 mg/dL (Negative) 05/19/24 18:48 Ur Leukocyte Esterase Negative (Negative) 05/19/24 18:48 Urine RBC 0-4 /hpf (0-2) H 05/19/24 18:48 Urine WBC 15-25 /hpf (0-5) H 05/19/24 18:48 Ur Squamous Epith Cells 0-4 /hpf (0-5) H 05/19/24 18:48 Ur Transition Epith Cell 0-4 /hpf 05/19/24 18:48 Ur Renal Epithelial Cell 0-4 /hpf 05/19/24 18:48 Amorphous Sediment Not Reportable 05/19/24 18:48 Urine Bacteria Trace /hpf (NONE) 05/19/24 18:48 Hyaline Casts 5-10 /lpf H 05/19/24 18:48 Urine Mucus None /hpf 05/19/24 18:48 All radiology interpretation(s) finalized by discharge Discharge Plan Discharge Patient Disposition: Home Clinical Impression: Musculoskeletal back pain Urinary tract infection Qualifiers: Urinary tract infection type: acute cystitis Hematuria presence: without hematuria Qualified Code(s): N30.00 - Acute cystitis without hematuria Condition: Stable Prescriptions: New cefdinir 300 mg capsule 300 mg PO BID 7 Days Qty: 14 0RF No Action atorvastatin 40 mg tablet 40 mg PO BEDTIME Qty: 90 0RF (DME) FreeStyle Oneyda 3 Sensor Device See Rx Instructions .Route Qty: 2 5RF Rx Instructions: As directed clopidogrel 75 mg tablet 75 mg PO DAILY Qty: 90 0RF dulaglutide 4.5 mg/0.5 mL pen injector 4.5 mg SUBCUT .Weekly Qty: 2 2RF Rx Instructions: SUNDAY duloxetine 60 mg capsule,delayed release(DR/EC) 60 mg PO BID 30 Days Qty: 180 0RF fluticasone propionate [Flonase Allergy Relief] 50 mcg/actuation spray,suspension 1 spray intranasal Q12H 90 Days Qty: 48 0RF Rx Instructions: administer into each nostril gabapentin 600 mg tablet 600 mg PO TID Qty: 90 0RF Tresiba FlexTouch U-200 200 unit/mL (3 mL) insulin pen 75 unit SUBCUT .at bedtime 90 Days Qty: 9 0RF lisinopril 20 mg tablet 20 mg PO DAILY Qty: 90 0RF pantoprazole 40 mg tablet,delayed release (DR/EC) 40 mg PO DAILY Qty: 90 0RF (DME) pen needle, diabetic [1st Tier Unifine Pentips] 31 gauge x 1/4 needle See Rx Instructions .ROUTE .MEDSUPPLY Qty: 100 12RF Rx Instructions: As directed buspirone 10 mg tablet 10 mg PO TID PRN (Reason: anxiety) Qty: 90 0RF prednisone 10 mg tablet 10 mg PO DAILY 12 Days Qty: 42 0RF Rx Instructions: 12 day taper Instructions on how to take was given to patient in clinic. (DME) Hinged Elbow Brace, right See Rx Instructions .Route .MEDSUPPLY Qty: 1 0RF Rx Instructions: As directed (DME) sole supports See Rx Instructions .ROUTE .MEDSUPPLY Qty: 1 0RF Rx Instructions: As directed linzess PO (DME) compressor, for nebulizer Device See Rx Instructions .Route Qty: 1 0RF Rx Instructions: As directed albuterol sulfate 2.5 mg /3 mL (0.083 %) solution for nebulization 2.5 mg inhalation QID PRN (Reason: shortness of breath or wheezing) Qty: 75 0RF albuterol sulfate 90 mcg/actuation HFA aerosol inhaler 2 puff inhalation QID PRN (Reason: shortness of breath or wheezing) Qty: 6.7 0RF Otezla 30 mg tablet 30 mg PO BID Qty: 60 4RF aspirin 81 mg capsule 81 mg PO DAILY Qty: 90 3RF (DME) FreeStyle Oneyda 3 Callahan Misc See Rx Instructions .Route Qty: 2 5RF Rx Instructions: As directed budesonide 0.5 mg/2 mL suspension for nebulization 0.5 mg inhalation BID PRN (Reason: Shortness Of Breath) ciclopirox 1 % shampoo See Rx Instructions .ROUTE .COMPLEX Rx Instructions: Apply to scalp 2-3 times weekly. Allow to sit 5 minutes, then rinse. Discharge Orders: Discharge ED (Routine); Ordered 05/19/24 Ordered By: Daljit Morales Referrals: Sara Browning FNP-C [Primary Care Provider] - Patient Instructions: Urinary Tract Infection in Older Adults (ED) Activity Restrictions/Additional Instructions: Take cefdinir as prescribed. Drink plenty of fluids. Heat to your side for added relief, take Tylenol for pain. Close follow-up with your primary care provider. Please return with any fevers, worsening pain, or new or worsening symptoms. Coding Level of Care Code ED Thermostatic Controls Supervisor for Daisy Shahid
--- NOTE | 2024-05-19 18:40 | CTR_ITS ---
PROCEDURE INFORMATION: Exam: CT Abdomen And Pelvis Without Contrast Exam date and time: 05/19/2024 7:27 PM Age: 63 years old Clinical indication: Other: RT flank pain; Additional info: Right flank pain TECHNIQUE: Imaging protocol: Computed tomography of the abdomen and pelvis without contrast. Radiation optimization: All CT scans at this facility use at least one of these dose optimization techniques: automated exposure control; mA and/or kV adjustment per patient size (includes targeted exams where dose is matched to clinical indication); or iterative reconstruction. COMPARISON: CT abdomen pelvis w con* [id number] 08/29/2017 11:57 PM RADIATION DOSE METRICS: Total DLP (mGy-cm): 708.22 FINDINGS: Lungs: Mild bibasilar atelectasis. Liver: Normal. No mass. Gallbladder and biliary ducts: Cholelithiasis without CT evidence of acute cholecystitis. No biliary ductal dilatation. Pancreas: Normal. No ductal dilation. Spleen: Normal. No splenomegaly. Adrenal glands: Normal. No mass. Kidneys and ureters: Similar postsurgical changes from prior left nephrectomy. The right kidney is grossly unremarkable. No nephrolithiasis. No hydronephrosis. Stomach and bowel: Unremarkable. No obstruction. No mucosal thickening. Appendix: No evidence of appendicitis. Intraperitoneal space: Unremarkable. No free air. No significant fluid collection. Vasculature: Moderate atherosclerotic aortoiliac calcifications. No aortic aneurysm. Lymph nodes: Unremarkable. No enlarged lymph nodes. Urinary bladder: Unremarkable as visualized. Reproductive: Status post hysterectomy. No suspicious adnexal mass. Bones/joints: Unremarkable. No acute fracture. Soft tissues: Unremarkable. CT/CT kidney stone [id number] IMPRESSION: 1. No acute findings in the abdomen/pelvis. 2. Other findings as above are similar to prior.
[2024-05-19 18:45] VITALS: BP 162/75; PULSE 75; O2SAT 96
[2024-05-19 18:53] LABS: Bilirubin Urine Negative (Negative); Blood Urine Negative (Negative); Glucose Urine UA 3+ (Normal); Ketones Urine Trace (Negative); Leukocyte Esterase Urine Negative (Negative); Nitrate Urine Negative (Negative); Protein Urine 2+ (Negative); Urine Appearance Cloudy (CLEAR); Urine Color Yellow (Yellow)
[2024-05-19 19:01] LABS: Specific Gravity, Urine 1.039 (1.005-1.030); UA Manual Slide Review YES; UA Slide Review UA Slide Review Perf
[2024-05-19 19:04] LABS: Add Urine Culture? No; Add Urine Microscopic? YES; Bacteria Urine TRACE /hpf; RBC Urine 0-4 /hpf (0-2); Renal Epithelial Cells Urine 0-4 /hpf; Squamous Epithelial Cell Urine 0-4 /hpf (0-5); Transitional Epi Cells Urine 0-4 /hpf; WBC Urine 15-25 /hpf (0-5)
[2024-05-19] MEDS: ondansetron 2 mg/ML SDV 2 mL 4 MG IVP (19:19)
[2024-05-19] MEDS: sodium chloride 0.9% 1,000 ML 999 ML IV (19:19)
[2024-05-19] MEDS: morphine 4 mg/mL SDV 1 mL IVP (19:21)
[2024-05-19 20:14] VITALS: BP 192/81; PULSE 74; RESP 16; O2SAT 99
[2024-05-19] MEDS: HYDROmorphone 1 mg/mL INJ 1 mL IVP (20:17)
[2024-05-19 21:09] VITALS: BP 152/68; PULSE 67; RESP 16; O2SAT 97
== END 2024-05-19 21:03 | disposition home or self-care (01) ==
PROVIDERS: Emergency Medicine; Emergency Provider Physician Assistant; PCP Nurse Practitioner Family
DX: N30.00 Acute cystitis without hematuria (principal); M79.18 Myalgia, other site
CPT/HCPCS: 74176; 80053; 81001; 83690; 85025; 96374; 96375; 99285; J1171; J2270; J2405; J7030

== ENCOUNTER → 2024-06-06 16:25 | Outpatient (BNVA) | payer OTHER, SELFPAY | PROVIDERS: PCP Nurse Practitioner Family; Visit Provider Nurse Practitioner Family | DX: R50.9 Fever, unspecified (principal) | CPT/HCPCS: 81000 ==

== ENCOUNTER 2024-06-11 06:00 | Outpatient (RCR) | payer OTHER, SELFPAY | END 2024-07-11 23:59 | disposition home or self-care (01) | LOC: APT 06:00 | PROVIDERS: PCP Nurse Practitioner Family; Visit Provider Podiatrist Foot & Ankle Surgery | DX: M72.2 Plantar fascial fibromatosis (principal) | CPT/HCPCS: 97033; 97035; 97110; 97140; 97530 ==

== ENCOUNTER 2024-06-11 06:00 | Outpatient (RCR) | payer OTHER, SELFPAY | END 2024-07-11 23:59 | disposition home or self-care (01) | LOC: APT 06:00 | PROVIDERS: PCP Nurse Practitioner Family; Visit Provider Specialist | DX: M67.823 Other specified disorders of tendon, right elbow (principal) | CPT/HCPCS: 97110; 97112; 97140; 97530 ==

== ENCOUNTER 2024-07-10 14:37 | Outpatient (CLI) | payer OTHER, SELFPAY ==
--- NOTE | 2024-07-10 15:15 | MR_ITS ---
WS: [id number] MRI LEFT ANKLE WITHOUT CONTRAST. COMPARISON: None Multiplanar, multisequence imaging is performed without contrast. History: Stress fracture, nerve entrapment, planter fasciitis. Increased T2 signal and edema in the medial navicular and also in the proximal first cuneiform. There is marked articular irregularity and narrowing of the articulation between the navicular and first c uneiform. Cannot confirm coalition. No additional marrow changes. Mild tendinopathy in the distal Achilles tendon with no tear. Additional enthesopathy at the Achilles tendon attachment site measures 5 mm. There is moderate thickening of the medial band of the plantar aponeurosis up to 6.4 mm. Enthesopathy at the plantar aponeurosis insertion site. Enthesopathy measures 7 mm. There is no edema surrounding the plantar aponeurosis. Normal appearance of the fat in the sinus Tarsi. No widening of the ankle syndesmosis. Mild striations within the anterior inferior tibiofibular ligam ent. No tear. There is a small amount of fluid also adjacent to the anterior talofibular ligament but no tear. Mild increased T2 striations in the deltoid ligament but the ligament is intact. Poorly vis ualized calcaneofibular ligament. Flexor digitorum longus and the flexor hallucis longus and the posterior tibialis tendon are normal. Abnormal peroneal brevis tendon. There is a split tear with partial invagination of the peroneus long us tendon. There is no fluid or edema. Suspect this is an chronic finding. The distal peroneus brevis tendon is small caliber and atrophied but does extend to the base of the fifth metatarsal. Normal ex tensor tendons. MR/MR ankle LT wo con* [id number] IMPRESSION: 1. Thickening of the plantar fascia, most significant involving the medial ban d with plantar fasciopathy. There is no tear or edema. Likely chronic fasciitis . 2. Mild distal Achilles tendinopathy. 3. Split tear of the peroneus brevis tendon. No edema. Favor this is probably an old tear. The distal peroneus brevis tendon is small caliber and atrophied b ut does extend to the fifth metatarsal. 4. Subchondral marrow edema with abnormal articular surfaces between the navic ular and first cuneiform. No coalition identified. Likely degenerative arthropa thy. CT may provide additional information if there is concern for coalition.
== END 2024-07-10 14:38 | disposition home or self-care (01) ==
PROVIDERS: PCP Nurse Practitioner Family; Visit Provider Podiatrist Foot & Ankle Surgery
DX: M72.2 Plantar fascial fibromatosis (principal); R93.6 Abnormal findings on diagnostic imaging of limbs; M77.52 Other enthesopathy of left foot and ankle; S93.432D Sprain of tibiofibular ligament of left ankle, subsequent encounter; X58.XXXD Exposure to other specified factors, subsequent encounter
CPT/HCPCS: 73721

== ENCOUNTER 2024-07-12 06:30 | Outpatient (RCR) | payer OTHER, SELFPAY | END 2024-08-08 23:59 | disposition home or self-care (01) | LOC: APT 06:30 | PROVIDERS: Family Provider Nurse Practitioner Family; PCP Nurse Practitioner Family; Visit Provider Podiatrist Foot & Ankle Surgery | DX: M72.2 Plantar fascial fibromatosis (principal) | CPT/HCPCS: 97110; 97140 ==

== ENCOUNTER 2024-07-12 06:30 | Outpatient (RCR) | payer OTHER, SELFPAY | END 2024-08-08 23:59 | disposition home or self-care (01) | LOC: APT 06:30 | PROVIDERS: PCP Nurse Practitioner Family; Visit Provider Specialist | DX: M67.823 Other specified disorders of tendon, right elbow (principal) | CPT/HCPCS: 97110; 97140; 97530 ==

== ENCOUNTER → 2024-07-17 10:01 | Outpatient (BNVA) | payer OTHER, SELFPAY | PROVIDERS: Family Provider Nurse Practitioner Family; PCP Nurse Practitioner Family; Visit Provider Nurse Practitioner Family | DX: E11.69 Type 2 diabetes mellitus with other specified complication (principal); Z79.4 Long term (current) use of insulin; E11.9 Type 2 diabetes mellitus without complications; F41.8 Other specified anxiety disorders; R09.81 Nasal congestion; E11.40 Type 2 diabetes mellitus with diabetic neuropathy, unspecified; Z90.5 Acquired absence of kidney; M25.50 Pain in unspecified joint; M54.50 Low back pain, unspecified; G89.29 Other chronic pain; M25.551 Pain in right hip; M25.552 Pain in left hip; M79.672 Pain in left foot | CPT/HCPCS: 73630; 80053; 80061; 83036; 84443; 85025 ==

== ENCOUNTER → 2024-07-28 09:37 | Outpatient (BNVA) | payer OTHER, SELFPAY | PROVIDERS: Family Provider Nurse Practitioner Family; PCP Nurse Practitioner Family; Visit Provider Specialist | DX: M25.521 Pain in right elbow (principal); M25.511 Pain in right shoulder | CPT/HCPCS: 73030; 73080 ==

== ENCOUNTER 2024-08-09 06:11 | Outpatient (RCR) | payer OTHER, SELFPAY | END 2024-09-08 23:59 | disposition home or self-care (01) | LOC: APT 06:11 | PROVIDERS: Family Provider Nurse Practitioner Family; PCP Nurse Practitioner Family; Visit Provider Specialist | DX: M25.511 Pain in right shoulder (principal) | CPT/HCPCS: 97110; 97162 ==

== ENCOUNTER 2024-08-12 07:48 | Outpatient (CLI) | payer OTHER, SELFPAY ==
--- NOTE | 2024-08-12 08:00 | MR_ITS ---
WS: [id number] MRI RIGHT SHOULDER NONCONTRAST TECHNIQUE: Sagittal T2, coronal T1, T2 and proton density imaging. Axial gradient PDE imaging. CLINICAL INFORMATION: M25.511 - Pain in right shoulder COMPARISON: None. FINDINGS: Moderate arthritis AC joint with downsloping of the acromion. Narrowing of the subacromial space. Impingement on the distal supraspinatus. Subacromial spurring. Tendinopathy supraspinatus which appears intact. Normal infraspinatus. Normal teres minor. Small amount of subacromial subdeltoid fluid. Subscapularis appears intact. Biceps tendon appears intact within the bicipital groove. Tendinopathy with partial intrasubstance tear intra-articular biceps tendon. Moderate degenerative narrowing glenohumeral articulation. Visually small shoulder capsule with thickening in the axillary recess. Small amount of signal abnormality in the rotator interval. Findings can be seen with adhesive capsulitis in the appropriate clinical setting. MR/MR shoulder RT wo con* [id number] IMPRESSION: 1. Moderate degenerative arthritis with subacromial spurring. Narrowing of the subacromial space. 2. Small amount of subacromial and subdeltoid fluid. 3. Tendinopathy distal supraspinatus. 4. Tendinopathy with partial intrasubstance tear intra-articular biceps tendon . 5. Imaging findings suggestive of adhesive capsulitis
== END 2024-08-12 07:49 | disposition home or self-care (01) ==
PROVIDERS: Family Provider Nurse Practitioner Family; PCP Nurse Practitioner Family; Visit Provider Specialist
DX: M19.011 Primary osteoarthritis, right shoulder (principal); R93.6 Abnormal findings on diagnostic imaging of limbs; M75.81 Other shoulder lesions, right shoulder; S46.211A Strain of muscle, fascia and tendon of other parts of biceps, right arm, initial encounter; X58.XXXA Exposure to other specified factors, initial encounter; M75.41 Impingement syndrome of right shoulder
CPT/HCPCS: 73221

== ENCOUNTER 2024-08-13 06:00 | Outpatient (RCR) | payer OTHER, SELFPAY | END 2024-09-08 23:59 | disposition home or self-care (01) | LOC: APT 06:00 | PROVIDERS: Family Provider Nurse Practitioner Family; PCP Nurse Practitioner Family; Visit Provider Nurse Practitioner Family | DX: M54.50 Low back pain, unspecified (principal); M25.559 Pain in unspecified hip; G89.29 Other chronic pain | CPT/HCPCS: 97110; 97112; 97161; 97530 ==

== ENCOUNTER → 2024-10-15 11:41 | Outpatient (BNVA) | payer OTHER, SELFPAY | PROVIDERS: Family Provider Nurse Practitioner Family; PCP Nurse Practitioner Family; Visit Provider Nurse Practitioner Family | DX: J40 Bronchitis, not specified as acute or chronic (principal); Z98.890 Other specified postprocedural states | CPT/HCPCS: 71046 ==

== ENCOUNTER → 2024-12-04 10:15 | Outpatient (BNVA) | payer OTHER, SELFPAY | PROVIDERS: Family Provider Nurse Practitioner Family; PCP Nurse Practitioner Family; Visit Provider Nurse Practitioner Family | DX: E11.69 Type 2 diabetes mellitus with other specified complication (principal); R53.83 Other fatigue; Z79.4 Long term (current) use of insulin | CPT/HCPCS: 80053; 80061; 82306; 83036; 84443; 85025 ==

== ENCOUNTER 2024-12-05 10:14 | Outpatient (CLI) | payer OTHER, SELFPAY ==
--- NOTE | 2024-12-05 10:17 | XR_ITS ---
WS: [id number] Exam: XR femur LT min 2V* [id number] Date/Time of Exam: 12/05/2024 10:18 AM Reason For Exam: M79.652 - Pain in left thigh No fracture noted. Articular relationships at the knee and hip appear normal. Vascular calcifications noted. XR/XR femur LT min 2V* [id number] IMPRESSION: 1. No fracture or other significant finding.
--- NOTE | 2024-12-05 10:17 | XR_ITS ---
WS: [id number] Exam: XR hip BI 3-4V wo/w pel [id number] Date/Time of Exam: 12/05/2024 10:18 AM Reason For Exam: M25.551 - Pain in right hip No fracture noted. Slight DJD of the acetabulum. Normal soft tissues. XR/XR hip BI 3-4V wo/w pel [id number] IMPRESSION: 1. Minimal DJD.
== END 2024-12-05 10:15 | disposition home or self-care (01) ==
LOC: RAD 10:15
PROVIDERS: PCP Nurse Practitioner Family; Visit Provider Nurse Practitioner Family
DX: M79.652 Pain in left thigh (principal); M25.551 Pain in right hip; M25.552 Pain in left hip
CPT/HCPCS: 73522; 73552

== ENCOUNTER → 2024-12-18 12:40 | Outpatient (BNVA) | payer OTHER, SELFPAY | PROVIDERS: PCP Nurse Practitioner Family; Visit Provider Nurse Practitioner Family | DX: R53.83 Other fatigue (principal) | CPT/HCPCS: 82607 ==

== ENCOUNTER 2025-01-12 09:37 | Emergency (ER) | payer OTHER, SELFPAY ==
--- OUTSIDE RECORDS SUMMARY | 2025-01-12 09:42 | XMS_ITS | Clinical Summary ---
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 Gender Identity Not on file Sexual Orientation Not on file Plan of Treatment Upcoming Encounters Date Type Department Care Team (Late st Contact Info) Description 01/20/2025 10:20 AM CDT Office Visit [facility] Rheumatology- Mayank Sigala [place] [address] [place] [address] Ajith Devine MD [address] [place] [id number] Health Maintenance Due Date Last Done Comments DTAP/TDAP/TD VACCINES (1 - Tdap) 1981 HPV/Cotest (21-29) 10/23/1983 CERVICAL CANCER SCREENING 1992 HPV/Cotest (30-65) 1992 PAP SMEAR 1992 BREAST CANCER SCREENING 2002 COLORECTAL SCREENING 10/23/2007 Colorectal Cancer Screening 10/23/2007 FIT-DNA Q 3 years 10/23/2007 FIT/FOBT Q 1 year 10/23/2007 Flex Sig/CT Colonography Q 5 years 10/23/2007 ZOSTER VACCINE (1 of 2) 2012 INFLUENZA VACCINE (#1) 2025 RSV VACCINE (60+ or ) (1 - 1-dose 75+ series) 2037
--- OUTSIDE RECORDS SUMMARY | 2025-01-12 09:42 | XMS_ITS | Encounter Summary ---
Author Organization [facility] [employer] Address [address] [place] [address] Phone Care Team Providers Care Offset Press Operator Name Role Phone Sara Browning ENVELOPE ADJUSTER-C Primary Care Provider [phone] Encounter Details Date Type Department Care Team (Late st Contact Info) Description 05/15/2024 Orders Only [facility] [address] [place] [address] Type 2 diabetes mellitus with other specified complication (HCC); Acquired absence of kidney Social History Tobacco Use Types Packs/Day Years Used Date Smoking Tobacco: Never Assessed Comments Unknown Sex and Gender Information Value Date Recorded Sex Assigned at Not on file Legal Sex Female 9:59 AM EST Gender Identity Not on file Sexual Orientation Not on file documented as of this encounter Plan of Treatment Not on file documented as of this encounter Visit Diagnoses Diagnosis Type 2 diabetes mellitus with other specified complication (HCC) Acquired absence of kidney documented in this encounter Care Teams Offset Press Operator Relationship Specialty Start Date End Date Sara Browning NP-C [facility] [place] [address] [place] [address] PCP - General Family Medicine 05/15/24 documented as of this encounter
--- OUTSIDE RECORDS SUMMARY | 2025-01-12 09:42 | XMS_ITS | Clinical Summary ---
Author Organization [facility] Facility Address [address] [place] [address], [place] [address] Care Team Providers Care Associate Quality Engineer Name Role Phone Sara ACETYLENE TORCH BURNERHarryC Primary Care Provider [phone] Social History Tobacco Use Types Packs/Day Years Used Date Smoking Tobacco: Never Assessed Comments Unknown Sex and Gender Information Value Date Recorded Sex Assigned at Not on file Legal Sex Female 9:59 AM EST Gender Identity Not on file Sexual Orientation Not on file Plan of Treatment Health Maintenance Due Date Last Done Comments Breast Cancer Screening 1960 Colorectal Cancer Screening: Annual FOBT 10/23/2011 Colorectal Cancer Screening: Colonoscopy 10/23/2011 Colorectal Cancer Screening: Sigmoidoscopy 10/23/2011 Pneumococcal Vaccine: 50+ Ye ars (1 of 1 - PCV) 2012 Diabetes: Hemoglobin A1C 05/15/2024 Diabetes: Ophthalmology Exam 05/15/2024 Diabetes: Pedal Pulse Checked 05/15/2024 Diabetes: Sensory Foot Exam 05/15/2024 Diabetes: Visual Foot Exam 05/15/2024 Influenza Vaccine (#1) 2025 Hepatitis B Vaccine Aged Out No longe r eligible based on patient's age to complete this topic Insurance [facility] Care Teams Associate Quality Engineer Relationship Specialty Start Date End Date Sara Browning NP-C [address] [place] [address] [place] [id number] PCP - General Family Medicine 05/15/24
--- NOTE | 2025-01-12 09:43 | USCV_ITS ---
Amna Stoner Age: 64 Gender: F : 1960 Exam Date: 01/12/2025 10:11 Ordering Phys: Elisha Chapman Technologist: PRASHANT Exam Location: [facility] [place]_ Indication: left leg swelling/pain HISTORY: Lower extremity swelling. Lower extremity pain. History of deep venous thrombosis. PROCEDURES: Venous duplex imaging was performed in only the left lower extremity. The following venous structures were evaluated: common femoral vein, profunda vein, proximal portion of the greater saphenous vein, superficial femoral vein, and the popliteal vein. In addition, the posterior tibial and peroneal trunk were evaluated. FINDINGS: LEFT CFV, PROX GSV, PROFUNDA, PROX FV AND MID FV are non compressible with occlusive DVT. Normal popliteal and PTV. CONCLUSIONS There is evidence of acute left lower extremity deep venous thrombosis. Superficial GSV thrombophlebitis. Dr. Roseanne Mcdonald DO (Electronically Signed) Final Date: 12 January 2025 10:46 S
[2025-01-12 09:57] VITALS: BP 174/111; PULSE 70; RESP 18; TEMP 36.8; O2SAT 99; BMI 29.2
--- NOTE | 2025-01-12 10:00 | ED_ITS ---
HPI - Extremity Problem General: Chief complaint: Extremity Problem,Nontraumatic Stated complaint: possible blood clot L leg sent from [facility] Time Seen by Provider: 01/12/25 09:42 Source: patient Mode of arrival: ambulatory Limitations: no limitations History of Present Illness: 64-year-old female with history of DVT, who presents to the ED with complaint of left leg pain and swelling since yesterday morning. Patient reports of tearing and burning pain to her upper left thigh, closer to her groin area. She states that she has had the pain for the past 10 days without swelling and that she went to [facility] walk-in clinic but did not have a workup for DVT at that time. She wore compression stockings and elevate her legs which slightly improved her swelling. Patient currently on aspirin and clopidogrel but not on any blood thinners. She states her previous DVT was several years ago and that this pain and swelling feels similar to that. Denies any fevers, chills, chest pain, palpitations, or shortness of breath. No other complaints at this time. MD Complaint: extremity pain and extremity swelling Onset (ago): day(s) (1) Pain Consistency: constant Location: left and lower extremity Quality: burning and other (Tearing) Relieving factors: elevation and other (Compression stocking) Associated symptoms: Reports no associated symptoms; Deny chest pain, fever(s), rash or short of breath Context: history of DVT Related Data Home Medications ?Medication ?Instructions ?Recorded ?Confirmed ciclopirox 1 % shampoo See Rx Instructions .Route . COMPLEX 12/13/23 01/12/25 Previous Rx's ?Medication ?Instructions ?Recorded apremilast 30 mg tablet (Otezla) 30 mg PO BID #60 tabs 03/24/22 compressor, for nebulizer #1 ea 10/16/23 blood-glucose,product demonstrator,cont #2 ea 01/07/24 ([employer] Oneyda 3 [place]) Hinged Elbow Brace, right #1 ea 04/02/24 sole supports #1 ea 05/14/24 albuterol sulfate 90 mcg/actuation 2 puff inhalation Q ID PRN 10/08/24 aerosol inhaler (Ventolin HFA) shortness of breath or wheezing #6.7 grams atorvastatin 40 mg tablet 40 mg PO BEDTIME #90 tabs blood-glucose sensor (FreeStyle #2 ea 12/04/24 Oneyda 3 Sensor device) buspirone 10 mg tablet 10 mg PO TID PRN anxiety #90 tabs 12/04/24 clopidogrel 75 mg tablet 75 mg PO DAILY #90 tabs 11/10 12/03 dulaglutide 4.5 mg/0.5 mL 4.5 mg (0.5 mL) SUBCUT .Week ly #2 12/04/24 subcutaneous pen injector mL duloxetine 60 mg capsule,delayed 60 mg PO BID 30 days #180 caps 12/04/24 release fluticasone propionate 50 1 spray intranasal Q12H 90 d ays 12/04/24 mcg/actuation nasal #48 grams spray,suspension (Flonase Allergy Relief) gabapentin 600 mg tablet 600 mg PO TID #90 tabs 12/04 lisinopril 20 mg tablet 20 mg PO DAILY #90 tabs 11/10 12/03 pantoprazole 40 mg tablet,delayed 40 mg PO DAILY #90 t abs 12/04/24 release pen needle, diabetic 31 gauge x #100 ea 12/04/2406/14 (1st Tier Unifine Pentips) cholecalciferol (vitamin D3) 1,250 50,000 unit PO .wee kly #4 caps 12/18/24 mcg (50,000 unit) capsule insulin degludec 200 unit/mL (3 80 unit (0.4 mL) SUBCU T .at 12/18/24 mL) subcutaneous pen (Tresiba bedtime 90 days #3 mL FlexTouch U-200 insulin) aspirin 81 mg chewable tablet See Rx Instructions .Rou te 01/01/25 .COMPLEX #90 tabs rivaroxaban 15 mg (42)-20 mg (9) See Rx Instructions P O .COMPLEX 01/12/25 tablets in a starter pack (Xarelto #51 ea DVT-PE Treatment 30-Day Starter) Allergies Allergy/AdvReac Type Severity Reaction Status Date / Time aspirin Allergy Unknown Verified 01/05/25 15:04 fluconazole (From Diflucan) Allergy ALGY-Rash Verified 01/05/25 15:04 Penicillins Allergy Unknown Verified 01/05/25 15:04 pregabalin (From Lyrica) Allergy Unknown Verified 01/05/25 15:04 Sulfa (Sulfonamide Allergy Unknown Verified 01/05/25 15:04 Antibiotics) sulfamethoxazole (From Allergy Unknown Verified 01/05/25 15:04 Bactrim) trimethoprim (From Bactrim) Allergy Unknown Verified 01/05/25 15:04 Review of Systems Const: Denies: fever(s), chills, body aches, fatigue or malaise Card: Denies: chest pain or palpitations Resp: Denies: dyspnea or hemoptysis Musc: Reports: extremity pain and extremity swelling; Denies: neck pain, back pain, joint pain, joint swelling or joint redness Skin/Breast: Denies: rash Neuro: Denies: headache(s), numbness in extremities, weakness in extremities, sensory changes or difficulty walking PFSH ED PFSH: Medical History History of DVT (deep vein thrombosis) Hyperlipemia, mixed Atherosclerosis of coronary artery Chronic constipation Osteoarthritis Diabetic neuropathy Elevated d-dimer Single kidney Hypertension Non-ST elevation [place] (NSTEMI) History of herpes zoster 3 para 3 History of echocardiogram 12/2020 EF 60% History of cardiovascular stress test 04/2021 normal ekg response to lexiscan infusion and normal myocardial perfusion imaging Plaque psoriasis Lichen sclerosus Primary osteoarthritis of both hands Hyperlipidemia Diabetes mellitus CKD (chronic kidney disease) Surgical History History of exploratory laparotomy To evaluate abnormalities of left kidney many years ago History of left nephrectomy Approximately 39 years ago, issues secondary to either childhood or developmental abnormalities History of esophagogastroduodenoscopy (EGD) History of hysterectomy Partial, an ovary remains History of renal stent left kidney secondary to issues that ultimately led to removal of left kidney Family History Mother Diabetes Sister Diabetes Stroke Brother Diabetes Clotting disorder Heart disease Cancer bladder cancer Brother Heart disease Hypertension Denies family history of Colon cancer Ovarian cancer Hyperlipidemia Breast cancer Bleeding disorder Uterine cancer Social History Smoking and tobacco/nicotine status: never used tobacco/nicotine Alcohol intake: never Substance/Drug Use: never Marital status: Physical Exam Const: COMMON NORMALS: no acute distress, average body habitus, patient oriented x3, no limitations, healthy appearing, alert and well nourished GENERAL APPEARANCE: cooperative HENMT: COMMON NORMALS: normocephalic HEAD & SCALP: normocephalic Resp: COMMON NORMALS: normal respiratory effort and clear to auscultation bilaterally AUSCULTATION: clear to auscultation bilaterally Cardio: COMMON NORMALS: regular rate and regular rhythm RATE: regular rate RHYTHM: regular rhythm Extremity: COMMON NORMALS: capillary refill normal and no calf tenderness GENERAL: Yes normal exam except as noted LEFT LOWER EXTREMITY: Yes lower leg (tenderness L medial thigh; no obvious palpable cord) Left lower leg: Yes inspection (edema to L LE when compared to R) Neuro: COMMON NORMALS: patient oriented x3, moves all extremities, no focal motor deficits, no sensory deficits noted and gait normal SENSORIUM/ORIENTATION: Yes alert Skin: COMMON NORMALS: no rashes or lesions noted GENERAL SKIN EXAM: no rashes or lesions noted Course Vital Signs: Vital signs: Vital Signs Temperature 98.2 F 01/12/25 09:57 Pulse Rate 70 01/12/25 09:57 Respiratory Rate 18 01/12/25 09:57 Blood Pressure 174/111 01/12/25 09:57 Pulse Oximetry 99 01/12/25 09:57 Oxygen Delivery Me thod Room Air 01/12/25 09:57 MDM - Extremity (Nontraumatic) Medical Decision Making Per US tech-she does have thrombus to her L femoral vein and distally. She has no chest pain, SOB, hemoptysis, dizziness, dyspnea with exertion or other concerning symtpoms. She will be started on Xarelto and recommend prompt follow up with her PCP. Discharge instructions were discussed with her and added to her paperwork. Medical Records I reviewed the patient's medical records. XR interpretation done by ED provider, pending radiology final review (per Real US tech-DVT noted to L femoral vein) Discharge Plan Discharge Patient Disposition: Home Clinical Impression: Left leg DVT Qualifiers: Affected thrombotic vein of extremity: femoral Chronicity: acute Qualified Code(s): I82.412 - Acute embolism and thrombosis of left femoral vein Condition: Stable Prescriptions: New Xarelto DVT-PE Treat 30d Start 15 mg (42)- 20 mg (9) tablets,dose pack See Rx Instructions .ROUTE .COMPLEX Qty: 51 0RF Protocol: Xarelto Dose Pack Condition: Start Dose/Route: 15 mg twice daily Instruction: after 21 days, Condition: Transition to Dose/Route: 20 mg once daily Instruction: thereafter Rx Instructions: take one-15 mg tablet twice daily for 21 days, then one-20 mg tablet once daily; must take with meal/food No Action (DME) Hinged Elbow Brace, right See Rx Instructions .Route .MEDSUPPLY Qty: 1 0RF Rx Instructions: As directed (DME) sole supports See Rx Instructions .ROUTE .MEDSUPPLY Qty: 1 0RF Rx Instructions: As directed albuterol sulfate [Ventolin HFA] 90 mcg/actuation HFA aerosol inhaler 2 puff inhalation QID PRN (Reason: shortness of breath or wheezing) Qty: 6.7 0RF (DME) compressor, for nebulizer Device See Rx Instructions .Route Qty: 1 0RF Rx Instructions: As directed (DME) pen needle, diabetic [1st Tier Unifine Pentips] 31 gauge x 1/4 needle See Rx Instructions .ROUTE .MEDSUPPLY Qty: 100 12RF Rx Instructions: As directed pantoprazole 40 mg tablet,delayed release (DR/EC) 40 mg PO DAILY Qty: 90 0RF lisinopril 20 mg tablet 20 mg PO DAILY Qty: 90 0RF gabapentin 600 mg tablet 600 mg PO TID Qty: 90 0RF fluticasone propionate [Flonase Allergy Relief] 50 mcg/actuation spray,suspension 1 spray intranasal Q12H 90 Days Qty: 48 0RF Rx Instructions: administer into each nostril duloxetine 60 mg capsule,delayed release(DR/EC) 60 mg PO BID 30 Days Qty: 180 0RF dulaglutide 4.5 mg/0.5 mL pen injector 4.5 mg SUBCUT .Weekly Qty: 2 2RF Rx Instructions: SUNDAY clopidogrel 75 mg tablet 75 mg PO DAILY Qty: 90 0RF buspirone 10 mg tablet 10 mg PO TID PRN (Reason: anxiety) Qty: 90 0RF (DME) FreeStyle Oneyda 3 Sensor Device See Rx Instructions .Route Qty: 2 5RF Rx Instructions: As directed atorvastatin 40 mg tablet 40 mg PO BEDTIME Qty: 90 0RF cholecalciferol (vitamin D3) 1,250 mcg (50,000 unit) capsule 50,000 unit PO .weekly Qty: 4 2RF Tresiba FlexTouch U-200 200 unit/mL (3 mL) insulin pen 80 unit SUBCUT .at bedtime 90 Days Qty: 3 2RF Otezla 30 mg tablet 30 mg PO BID Qty: 60 4RF (DME) FreeStyle Oneyda 3 [place] Replaced By [facility] See Rx Instructions .Route Qty: 2 5RF Rx Instructions: As directed aspirin 81 mg tablet,chewable See Rx Instructions .ROUTE .COMPLEX Qty: 90 3RF Dose Instruction: TAKE 1 TABLET BY MOUTH EVERY DAY Rx Instructions: TAKE 1 TABLET BY MOUTH EVERY DAY ciclopirox 1 % shampoo See Rx Instructions .ROUTE .COMPLEX Rx Instructions: Apply to scalp 2-3 times weekly. Allow to sit 5 minutes, then rinse. Discharge Orders: Discharge ED (Routine); Ordered 01/12/25 Ordered By: Elisha Chapman Referrals: Sara Browning FNP-C [facility] Patient Instructions: Deep Vein Thrombosis (DC), Patient Portal & Joao Instructions Activity Restrictions/Additional Instructions: You have been diagnosed with a blood clot in your leg (deep vein thrombosis, or DVT) and are starting treatment with Xarelto (rivaroxaban). Please follow these instructions carefully to help prevent complications and support your recovery. 1. How to Take Xarelto (Rivaroxaban): ? For the first 21 days: Take 15 mg (one 15 mg tablet)?twice a day?(about 12 hours apart),?with food. ? After 21 days: Take 20 mg (one 20 mg tablet)?once a day,?with food. ? Take your medicine at the same times every day. ? If you miss a dose: ? During the first 21 days (15 mg twice daily): Take the missed dose as soon as you remember. If you miss a dose, you may take two 15 mg tablets at once to make up for the missed dose that day.[2] ? After 21 days (20 mg once daily): Take the missed dose as soon as you remember on the same day. Do not take more than one dose in a day.[2] ? Do?not?stop taking Xarelto without talking to your healthcare provider. Stopping suddenly can increase your risk of another blood clot.[2] 2. What to Watch For: ??Bleeding:?Xarelto can increase your risk of bleeding. Call your healthcare provider or go to the emergency room if you have: ? Unusual bleeding from your gums or nose ? Heavy or long-lasting menstrual bleeding ? Red, pink, or brown urine ? Red or black stools (looks like tar) ? Coughing up or vomiting blood (or material that looks like coffee grounds) ? Severe headache, dizziness, or weakness ? Unusual bruising or any bleeding that is hard to stop[2] ??Signs of a new blood clot or pulmonary embolism:?Call 911 or seek emergency care if you have: ? Sudden shortness of breath or chest pain ? Coughing up blood ? Swelling, pain, or redness in your leg that gets worse[3] Print Language: Bolivian Coding Level of Care Code ED Sales Program Coordinator for Daisy Shahid
== END 2025-01-12 10:52 | disposition home or self-care (01) ==
PROVIDERS: Emergency Provider Physician Assistant; PCP Nurse Practitioner Family
DX: I82.412 Acute embolism and thrombosis of left femoral vein (principal); Z79.82 Long term (current) use of aspirin; Z79.02 Long term (current) use of antithrombotics/antiplatelets; E11.22 Type 2 diabetes mellitus with diabetic chronic kidney disease; I12.9 Hypertensive chronic kidney disease with stage 1 through stage 4 chronic kidney disease, or unspecified chronic kidney disease; N18.9 Chronic kidney disease, unspecified; I25.10 Atherosclerotic heart disease of native coronary artery without angina pectoris; E78.2 Mixed hyperlipidemia
CPT/HCPCS: 93971; 99284

== ENCOUNTER 2025-01-12 10:41 | Outpatient (CLI) | payer OTHER, SELFPAY ==
[2025-01-12 11:11] LABS: Estmated Average Glucose 309; Hemoglobin A1C 12.4 % (4.0-6.0)
[2025-01-12 11:14] LABS: Alanine Aminotransferase 9 U/L (0-33); Albumin Level 3.6 g/dL (3.5-5.2); Alkaline Phosphatase 76 U/L (35-105); Anion Gap 16.3 (5-19); Aspartate Amino Transferase 8 U/L (0-32); Blood Urea Nitrogen 12 mg/dL (8-23); Calcium 9.1 mg/dL (8.5-10.5); Carbon Dioxide 24 mmol/L (22-29); Chloride 102 mmol/L (98-107); Cholesterol 187 mg/dL (0-200); Globulin 3.4 g/dL (1.3-4.6); Glucose 256 mg/dL (65-115); HDL Cholesterol 48 mg/dL (60-100); Osmolality Calculated 295 mOsm/kg (285-295); Potassium 4.3 mmol/L (3.5-5.1); Sodium 138 mmol/L (136-145); Total Protein 7.0 g/dL (6.6-8.7); Triglycerides 149 mg/dL (0-150)
== END 2025-01-12 10:42 | disposition home or self-care (01) ==
LOC: LAB 10:43
PROVIDERS: PCP Nurse Practitioner Family; Visit Provider Internal Medicine
DX: E11.69 Type 2 diabetes mellitus with other specified complication (principal); Z79.4 Long term (current) use of insulin
CPT/HCPCS: 36415; 80053; 80061; 83036

== ENCOUNTER 2025-02-01 16:45 | Emergency (ER) | payer OTHER, SELFPAY ==
[2025-02-01] VITALS (8 sets, daily range): BP systolic 160–184; BP diastolic 78–97; PULSE 68–79; RESP 16–18; TEMP 36.6; O2SAT 96–100
--- NOTE | 2025-02-01 16:49 | ECG_ITS ---
[facility] Test Date: 2025-02-01 Pat Name: Amna Stoner Department: Room: Gender: Female River Captain: : 1960 Requested By: Patel Guillaume Order Number: [id number] Mera MD: Aldo Ch M.D. Measurements Intervals [place] Rate: 71 P: 39 FL: 199 QRS: 39 QRSD: 85 T: 57 QT: 370 QTc: 403 Interpretive Statements SINUS RHYTHM Compared to ECG 12/13/2023 10:55:53 No significant changes Electronically Signed On 02-01-2025 18:42:47 CDT by Aldo Ch M.D. [id number]
--- OUTSIDE RECORDS SUMMARY | 2025-02-01 16:50 | XMS_ITS | Patient Health Record ---
Author Organization [facility] Address [address] [place] [address] Care Team Providers Care Clarifying Plant Operator Name Role Phone Sara Sinclair (Kayly) Primary Care Provider U Alma Sotomayor Unavailable [phone] Allergies Allergen (clinical drug ingredient) Drug/Non Drug Allergy documented on EMR Reaction Allergy Type Onset Date Status sulfamethoxazole / trimethoprim Bactrim Unknown Drug Allergy Active Penicillin Unknown Drug Allergy Active Substance with sulfonamide structure and antibacterial mechanism of action (substance) Sulfa Antibiotics Unknown Drug Allergy A ctive Results Component Value Reference Range Flag Notes Protein (U) Random [id number] Reviewed date:08/18/2024 02:47:47 PM Interpretation: Performing Lab: Notes/Report: Diagnosis Description: Proteinuria, unspecified Ur Prot 115.00 .00-12.00 MG/DL HI Creatinine (U) 84705 Reviewed date:08/18/2024 02:47:47 PM Interpretation: Performing Lab: Notes/Report: Diagnosis Description: Proteinuria, unspecified Ur Creat 275.1 29.0-226.0 HI Reason For Referral No Information Medications Medication SIG (Take, Route, Frequency, Duration) Notes Start Date End Date Status Otezla 30 MG Tablet 1 tablet Orally Twic e a day Active Clopidogrel Bisulfate 75 MG Tablet TAKE 1 TABLET BY MOUTH EVERY DAY; Duration: 90 Active Tresiba FlexTouch 200 UNIT/ML Solution Pen-injector as directed Subcutaneous 70 units daily; Duration: 30 days Active Clobetasol Propionate 0.05 % Cream 1 application Externally Twice a day Active Pantoprazole Sodium 40 MG Tablet Delayed Release 1 tablet Orally Once a day Active Fluticasone Propionate 50 MCG/ACT Suspension 1 spray in each nostril Nasally Once a day Active valACYclovir HCl 500 MG Tablet 1 tablet Orally Once a day Active Diclofenac Sodium 1 % Gel as directed Externally Active Trulicity 4.5 MG/0.5ML Solution Pen-injector as directed Subcutaneous weekly; Duration: 30 days Active Gabapentin 600 MG Tablet 1 tablet Orally Three times daily Active FreeStyle Oneyda 14 Day Sensor - Miscellaneous as directed as directed every 14 days.; Duration: 30 days Active Aspirin Low Dose 81 MG Tablet Delayed Release TAKE 1 TABLET BY MOUTH EVERY DAY; Duration: 90 Active Lisinopril 20 MG Tablet 1 tablet Orally Once a day Active Linzess 145 MCG Capsule [address] 30 minutes before the first meal of the day on an empty stomach Orally Once a day Active Ciclopirox 1 % Shampoo as directed Externally Active Mupirocin 2 % Ointment 1 application Ext ernally Twice a day Active Atorvastatin Calcium 40 MG Tablet TAKE 1 TABLET BY MOUTH EVERYDAY AT BEDTIME; Duration: 90 Active Mometasone Furoate 0.1 % Solution 1 application Externally Once a day Active Clindamycin Phosphate 1 % Lotion 1 application Externally Twice a day Active Social History Tobacco Use: Social History Observation Description Date Details (start date - stop date) Never Smoker NA - NA Social History Tobacco Use: Social Info Question Answer Notes xTobacco Use/Smoking Are you a nonsmoker Additional Details Category Social Info Options Details Drugs/Alcohol: Do you smoke marijuana? De nies Do you drink alcohol? No Problems Problem Type SNOMED Code ICD Code Onset Dates Problem Status W/U Status Risk Notes Problem Diabetic renal disease (800314064) Type 2 diabetes mellitus with diabetic chronic kidney disease (E11.22) Active confirmed Problem Hyperlipidemia (62742050) Hyperlipidemia, unspecified (E78.5) Active confirmed Problem Chronic kidney disease due to hypertension (798886169217441) Hypertensive chronic kidney disease with stage 1 through stage 4 chronic kidney disease, or unspecified chronic kidney disease (I12.9) Active confirmed Problem Type II diabetes mellitus without complication (961136330) Type 2 diabetes mellitus without complication, unspecified whether termite treater insulin use (E11.9) Active confirmed Problem Chronic fatigue syndrome (23442131) Chronic fatigue (R53.82) Active confirmed Problem Angina co-occurrent and due to coronary arteriosclerosis (07622706514605306) Coronary artery disease of [place] artery of [place] heart with stable angina pectoris (I25.118) Active confirmed Problem Chronic kidney disease stage 2 (271185065) Stage 2 chronic kidney disease (N18.2) Active confirmed Problem single functional kidney (finding) (998161071) Solitary kidney (Q60.0) Active confirmed Problem Pain of breast (74981242) Breast pain in female (N64.4) Active confirmed Problem Herpesvirus infection (63598657) 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) Active confirmed Vital Signs Heart Rate 77 /min 08/14/2024 Temperature 98 degrees Fahrenheit 08/14/2024 Blood pressure diastolic 101 mm Hg 08/14/2024 Oximetry 98 % 08/14/2024 Height-cm 162.56 cm 08/14/2024 Weight-kg 84 kg 08/14/2024 Height 64 in 08/14/2024 Blood pressure systolic 163 mm Hg 08/14/2024 Weight 185.19 lbs 08/14/2024 BMI 31.78 kg/m2 08/14/2024 Encounters Encounter Location Date Provider Diagnosis [facility] [address] [place] [address] Dr Burnett [address] [place] [address] 08/14/2024 Alma Carey Proteinuria, unspecified type R80.9 ; Stage 2 chronic kidney disease N18.2 ; Hypertensive chronic kidney disease with stage 1 through stage 4 chronic kidney disease, or unspecified chronic kidney disease I12.9 ; Type 2 diabetes mellitus with diabetic chronic kidney disease E11.22 ; Solitary kidney Q60.0 ; Hyponatremia E87.1 and Frequent UTI N39.0 [facility] [address] [place] [address] [address] [place] [address] 08/15/2024 Alma Carey Assessments Encounter Date Diagnosis (ICD Code) Assessment Notes Treatment Notes Treatment Clinical Notes Section Notes 08/14/2024 Proteinuria, unspecified type (ICD-10 - R80.9) CKD ranges from stage 2-3a per available labs. CKD secondary to HTN, diabetes and solitary kidney status. HTN is uncontrolled in clinic but reportedly controlled at home. Diabetes uncontrolled based on available labs. Proteinuria is non-nephrotic . Hyponatremia during COVID infection is mild. Frequent UTIs reported. 08/14/2024 Stage 2 chronic kidney disease (ICD-10 - N18.2) CKD ranges from stage 2-3a per available labs. CKD secondary to HTN, diabetes and solitary kidney status. HTN is uncontrolled in clinic but reportedly controlled at home. Diabetes uncontrolled based on available labs. Proteinuria is non-nephrotic . Hyponatremia during COVID infection is mild. Frequent UTIs reported. 08/14/2024 Hypertensive chronic kidney disease with stage 1 through stage 4 chronic kidney disease, or unspecified chronic kidney disease (ICD-10 - I12.9) CKD ranges from stage 2-3a per available labs. CKD secondary to HTN, diabetes and solitary kidney status. HTN is uncontrolled in clinic but reportedly controlled at home. Diabetes uncontrolled based on available labs. Proteinuria is non-nephrotic . Hyponatremia during COVID infection is mild. Frequent UTIs reported. 08/14/2024 Type 2 diabetes mellitus with diabetic chronic kidney disease (ICD-10 - E11.22) CKD ranges from stage 2-3a per available labs. CKD secondary to HTN, diabetes and solitary kidney status. HTN is uncontrolled in clinic but reportedly controlled at home. Diabetes uncontrolled based on available labs. Proteinuria is non-nephrotic . Hyponatremia during COVID infection is mild. Frequent UTIs reported. 08/14/2024 Solitary kidney (ICD-10 - Q60.0) CKD ranges from stage 2-3a per available labs. CKD secondary to HTN, diabetes and solitary kidney status. HTN is uncontrolled in clinic but reportedly controlled at home. Diabetes uncontrolled based on available labs. Proteinuria is non-nephrotic . Hyponatremia during COVID infection is mild. Frequent UTIs reported. 08/14/2024 Hyponatremia (ICD-10 - E87.1) CKD ranges from stage 2-3a per available labs. CKD secondary to HTN, diabetes and solitary kidney status. HTN is uncontrolled in clinic but reportedly controlled at home. Diabetes uncontrolled based on available labs. Proteinuria is non-nephrotic . Hyponatremia during COVID infection is mild. Frequent UTIs reported. 08/14/2024 Frequent UTI (ICD-10 - N39.0) CKD ranges from stage 2-3a per available labs. CKD secondary to HTN, diabetes and solitary kidney status. HTN is uncontrolled in clinic but reportedly controlled at home. Diabetes uncontrolled based on available labs. Proteinuria is non-nephrotic . Hyponatremia during COVID infection is mild. Frequent UTIs reported. 08/14/2024 Other I have asked patient to sign TIM for Nephrology in [facility] and for [facility] for all records available. Obtain UPC at [place] today. Continue current antihypertensives and monitor blood pressure daily with goal less than 130/80. I have asked patient to call with daily blood pressure log in 2 weeks. Based on most recent labs, no need to renally dose medications at this time. Recommend following a low-sodium diet. Stay well hydrated and drink at least 32 ounces of water per day. Avoid nephrotoxins. Avoid NSAIDs. Risk factor modification; follow up for diabetes management. Monitor hyperparathyroidism labs. Monitor Hgb. Monitor proteinuria; continue lisinopril and control diabetes and hypertension. Follow-up in 6 months with labs at [facility] 5-10 days prior to next appointment.BMP, mag, phos, PTH, uric acid, albumin, Hgb, UA, urine protein, urine creat, urine microalbumin The patient was instructed to follow up with their PCP for preventative health screenings. CKD ranges from stage 2-3a per available labs. CKD secondary to HTN, diabetes and solitary kidney status. HTN is uncontrolled in clinic but reportedly controlled at home. Diabetes uncontrolled based on available labs. Proteinuria is non-nephrotic . Hyponatremia during COVID infection is mild. Frequent UTIs reported. Plan Of Treatment Future Test Test Name Order Date Albumin 69064 02/02/2025 Basic Metabolic Panel (BMP) 33473 2024 Hemoglobin 09406 02/02/2025 Phosphorus (B) 02444 02/02/2025 Protein (U) Random 46253 02/02/2025 Uric Acid (B) 17315 02/02/2025 Microalbumin (U) Random 18181 02/02/2025 Creatinine (U) 53390 02/02/2025 UA Reflex Micro, Reflex Cult 99552, 8101 5, 95214 02/02/2025 PTH Intact 63896 02/02/2025 Next Appt Details Provider Name:Mary Grace blunt, 02/16/2025 11:00:00 AM, [address] [place] [address] [address], [place], [address], Insurance Providers Payer Name Payer Address Payer Phone Subscriber Number Group Number Insured Name Patient Relationship to Insured Coverage Start Date Coverage End Date [place] [employer] [address] [address] [place] [address] [id number] JOSE ALEXSANDER Self - patient is the insured Medical (General) History Medical History History ICD Code gerd diabetes hypertesion afib neuropathy vision issues heart disease/heart attack frequent or recurrent UTI's Peripheral arterial disease history of blood clots high cholesterol depression/anxiety Surgical History Surgery Date(Month/Year) stents placed on 09/03/22 kidney removal eye surgery 2 weeks ago Appendectomy Hysterectomy Hospitalization History Reason Date(Month/Year) see surgical history
--- OUTSIDE RECORDS SUMMARY | 2025-02-01 16:50 | XMS_ITS | Clinical Summary ---
Author Organization [facility] Facility Address [address] [place] [address], [place] [address] Care Team Providers Care Software Applications Designer Name Role Phone Sara WALLPAPER HANGERHarryC Primary Care Provider [phone] Social History Tobacco Use Types Packs/Day Years [...] patient's age to complete this topic Insurance [facility] Care Teams Software Applications Designer Relationship Specialty Start Date End Date Sara Browning NP-C [address] [place] [address] [place] [address] PCP - General Family Medicine 05/15/24
--- OUTSIDE RECORDS SUMMARY | 2025-02-01 16:50 | XMS_ITS | Encounter Summary ---
Author Organization [facility] Address [address] [place] [address] Phone Care Team Providers Care Access Clerk Name Role Phone Sara Browning PIPE CONNECTOR-C Primary Care Provider [phone] Encounter Details Date Type Department Care Team (Late st Contact Info) Description 05/15/2024 Orders Only [facility] [address] [place] [address] Type 2 diabetes mellitus with [...] kidney documented in this encounter Care Teams Access Clerk Relationship Specialty Start Date End Date Sara Browning NP-C [facility] [place] [address] [place] [address] PCP - General Family Medicine 05/15/24 documented as of this encounter
--- NOTE | 2025-02-01 17:17 | W.ED.CHESTPA ---
HPI - Chest Pain General: Chief Complaint: Chest Pain Stated Complaint: chest pain/tighness Time Seen by Provider: 02/01/25 16:56 History of Present Illness: Patient presents with chest tightness that began on Sunday and has been intermittent since then. Today, the pain returned between 12:30-1:30 PM and progressively worsened, prompting the ED visit. Patient describes the pain as a constant squeezing sensation in the chest. Associated symptoms include pain in the back shooting toward the center and mild discomfort with deep breathing. Patient reports difficulty taking deep breaths on Sunday, but this has improved today. Denies nausea, sweating, or current anxiety. Patient has a significant cardiac history with a myocardial infarction approximately two years ago (September 05, 2019) requiring two stents. Patient reports compliance with all medications. No cardiac issues since stent placement, though patient did experience an anxiety attack in May that mimicked cardiac symptoms. Patient expresses concern about experiencing another heart attack, referencing a previous episode where elevated cardiac enzymes were detected just as she was about to be discharged. 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 #2 ea 01/07/24 (FreeStyle Oneyda 3 Hester) Hinged Elbow Brace, right #1 ea 04/02/24 sole supports #1 ea 05/14/24 albuterol sulfate 90 mcg/actuation 2 puff inhalation QID PRN 10/08/24 aerosol inhaler (Ventolin HFA) shortness of breath or wheezing #6.7 grams blood-glucose sensor (FreeStyle #2 ea 12/04/24 Oneyda 3 Sensor device) fluticasone propionate 50 1 spray intranasal Q12H 90 days 12/04/24 mcg/actuation nasal #48 grams spray,suspension (Flonase Allergy Relief) pen needle, diabetic 31 gauge x #100 ea 12/04/24/ (1st Tier Unifine Pentips) cholecalciferol (vitamin D3) 1,250 50,000 unit PO .weekly #4 caps 12/18/24 mcg (50,000 unit) capsule insulin degludec 200 unit/mL (3 80 unit (0.4 mL) SUBCUT .at 12/18/24 mL) subcutaneous pen (Tresiba bedtime 90 days #3 mL FlexTouch U-200 insulin) aspirin 81 mg chewable tablet See Rx Instructions .Route 01/01/25 .COMPLEX #90 tabs atorvastatin 40 mg tablet 40 mg PO BEDTIME #90 tabs 01/12/25 buspirone 10 mg tablet 10 mg PO TID PRN anxiety #90 tabs 01/12/25 clopidogrel 75 mg tablet 75 mg PO DAILY #90 tabs 01/12/25 dulaglutide 4.5 mg/0.5 mL 4.5 mg (0.5 mL) SUBCUT .Weekly #2 01/12/25 subcutaneous pen injector mL duloxetine 60 mg capsule,delayed 60 mg PO BID 30 days #180 caps 01/12/25 release gabapentin 600 mg tablet 600 mg PO TID #270 tabs 01/12/25 lisinopril 20 mg tablet 20 mg PO DAILY #90 tabs 01/12/25 pantoprazole 40 mg tablet,delayed 40 mg PO DAILY #90 tabs 01/12/25 release rivaroxaban 15 mg (42)-20 mg (9) See Rx Instructions PO .COMPLEX 01/12/25 tablets in a starter pack (Xarelto #51 ea DVT-PE Treatment 30-Day Starter) nateglinide 120 mg tablet 120 mg PO TID #270 tabs 01/26/25 Allergies Allergy/AdvReac Type Severity Reaction Status Date / Time aspirin Allergy Unknown Verified 02/01/25 16:54 fluconazole (From Diflucan) Allergy ALGY-Rash Verified 02/01/25 16:54 Penicillins Allergy Unknown Verified 02/01/25 16:54 pregabalin (From Lyrica) Allergy Unknown Verified 02/01/25 16:54 Sulfa (Sulfonamide Allergy Unknown Verified 02/01/25 16:54 Antibiotics) sulfamethoxazole (From Allergy Unknown Verified 02/01/25 16:54 Bactrim) trimethoprim (From Bactrim) Allergy Unknown Verified 02/01/25 16:54 Review of Systems General: Reports: 10 or more systems reviewed and unremarkable except in HPI and below PFSH ED PFSH: Medical History (Updated 02/01/25 @ 20:25 by Patel Guillaume DO) History of DVT (deep vein thrombosis) Hyperlipemia, mixed Atherosclerosis of coronary artery Chronic constipation Osteoarthritis Diabetic neuropathy Elevated d-dimer Single kidney Hypertension Non-ST elevation LA (NSTEMI) History of herpes zoster 3 para 3 History of echocardiogram 12/2020 EF 60% History of cardiovascular stress test 04/2021 normal ekg response to lexiscan infusion and normal myocardial perfusion imaging Plaque psoriasis Lichen sclerosus Primary osteoarthritis of both hands Hyperlipidemia Diabetes mellitus CKD (chronic kidney disease) Surgical History History of exploratory laparotomy To evaluate abnormalities of left kidney many years ago History of left nephrectomy Approximately 39 years ago, issues secondary to either childhood or developmental abnormalities History of esophagogastroduodenoscopy (EGD) History of hysterectomy Partial, an ovary remains History of renal stent left kidney secondary to issues that ultimately led to removal of left kidney Family History Mother Diabetes Sister Diabetes Stroke Brother Diabetes Clotting disorder Heart disease Cancer bladder cancer Brother Heart disease Hypertension Denies family history of Colon cancer Ovarian cancer Hyperlipidemia Breast cancer Bleeding disorder Uterine cancer Social History Smoking and tobacco/nicotine status: never used tobacco/nicotine Alcohol intake: never Substance/Drug Use: never Marital status: Physical Exam Const: COMMON NORMALS: no acute distress, patient oriented x3, alert and well nourished HENMT: COMMON NORMALS: normocephalic HEAD & SCALP: normocephalic Eye: COMMON NORMALS: Equal, round and reactive pupils present, EOMs intact bilaterally and conjunctivae normal CONJUNCTIVA: Yes conjunctivae normal PUPIL: Yes Equal, round and reactive pupils present Chest: COMMONS NORMALS: normal inspection of the chest; negative for normal palpation of entire chest wall (Pain reproducible on palpation) Resp: COMMON NORMALS: normal respiratory effort, No retractions, No use of accessory muscles, clear to auscultation bilaterally and percussion normal AUSCULTATION: clear to auscultation bilaterally PERCUSSION: percussion normal GI: COMMON NORMALS: Normal to inspection, nondistended, normoactive bowel sounds present, Soft to palpation, non-tender, No hepatosplenomegaly present, no masses and no bruits PALPATION: Yes Soft to palpation and Yes No hepatosplenomegaly present : COMMON NORMALS: Yes no CVA tenderness BLADDER/KIDNEY EXAM: Yes no CVA tenderness Back/Pelvis: COMMON NORMALS: no CVA tenderness Extremity: COMMON NORMALS: normal to inspection, full ROM, capillary refill normal, no joint enlargement, no clubbing, cyanosis or edema, no calf tenderness and no pedal edema Neuro: COMMON NORMALS: patient oriented x3 SENSORIUM/ORIENTATION: Yes alert Skin: COMMON NORMALS: no rashes or lesions noted, turgor normal and no jaundice GENERAL SKIN EXAM: no rashes or lesions noted and turgor normal Course Vital Signs: Vital signs: Vital Signs Temperature 97.9 F 02/01/25 16:46 Pulse Rate 74 02/01/25 20:00 Respiratory Rate 18 02/01/25 18:30 Blood Pressure 184/97 02/01/25 20:00 Pulse Oximetry 97 02/01/25 20:00 Oxygen Delivery Me thod Room Air 02/01/25 20:00 MDM - Chest Pain Medical Decision Making 1. Chest Pain with History of Myocardial Infarction: - Not particularly concerning despite patient's cardiac history (several days and reproducible) - EKG appears reassuring at this time - Will obtain cardiac enzymes to rule out acute coronary syndrome - Chest X-ray ordered to evaluate for alternative causes - Continuous cardiac monitoring initiated - Will review all results before disposition decision 2. History of Coronary Artery Disease with Stent Placement: - Two stents placed in August 2019 - Patient reports medication compliance - Will review current medication regimen - Cardiology consultation may be warranted depending on test results 3. Anxiety: - History of anxiety attack mimicking cardiac symptoms - Patient denies current anxiety - Will reassess after ruling out cardiac etiology Patient had serially negative troponins and a largely unchanged EKG she reported no real change in her symptoms during her stay she declined Toradol. Reproducible chest pain with workup that is largely negative her blood pressure was up somewhat here in the department and definitely needs followed up on but no other significant findings discussed the workup as well as differential diagnosis and diagnostic uncertainty but she wanted to go home without any further testing observation and follow-up with primary care and/or cardiology and I think this is probably a reasonable course of action. Lab Data 02/01/25 17:40 02/01/25 17:40 Radiology Impressions Chest X-Ray 02/01/25 17:33 IMPRESSION: No acute findings. Laboratory Results WBC 9.37 10^3/uL (3.29-11.43) 02/01/25 17:40 RBC 4.28 10^6/uL (3.85-5.65) 02/01/25 17:40 Hgb 12.80 g/dL (11.27-16.99) 02/01/25 17:40 Hct 39.0 % (36-47) 02/01/25 17:40 MCV 91.1 fl (85-98) 02/01/25 17:40 MCH 29.9 pg (27-33) 02/01/25 17:40 MCHC 32.8 g/dL (30-55) 02/01/25 17:40 RDW 13.2 % (12.1-15.1) 02/01/25 17:40 Plt Count 383 10^3/cmm (157-399) 02/01/25 17:40 MPV 9.1 fL (7.4-10.4) 02/01/25 17:40 Neut % (Auto) 46.0 % 02/01/25 17:40 Lymph % (Auto) 44.2 % 02/01/25 17:40 [place] % (Auto) 5.2 % 02/01/25 17:40 Eos % (Auto) 3.6 % 02/01/25 17:40 Baso % (Auto) 0.6 % 02/01/25 17:40 Neut # (Auto) 4.30 10^3/uL (1.8-7.7) 02/01/25 17:40 Lymph # (Auto) 4.1 10^3/uL (0.8-4.8) 02/01/25 17:40 [place] # (Auto) 0.5 10^3/uL (0.2-0.9) 02/01/25 17:40 Eos # (Auto) 0.3 10^3/uL (0.0-0.8) 02/01/25 17:40 Baso # (Auto) 0.1 10^3/uL (0.0-0.1) 02/01/25 17:40 Nucleated RBC % (auto) 0 % 02/01/25 17:40 Nucleated RBCs # 0.0 /100WBC 02/01/25 17:40 Sodium 139 mmol/L (136-145) 02/01/25 17:40 Potassium 4.4 mmol/L (3.5-5.1) 02/01/25 17:40 Chloride 105 mmol/L (98-107) 02/01/25 17:40 Carbon Dioxide 23 mmol/L (22-29) 02/01/25 17:40 Anion Gap 15.4 (5-19) 02/01/25 17:40 BUN 16 mg/dL (8-23) 02/01/25 17:40 Creatinine 1.3 mg/dL (0.5-0.9) H 02/01/25 17:40 GFR Calculation 41.5 mL/min (90-130) L 02/01/25 17:40 Glucose 196 mg/dL (65-115) H 02/01/25 17:40 Calculated Osmolality 295 mOsm/kg (285-295) 02/01/25 17:40 Calcium 9.4 mg/dL (8.5-10.5) 02/01/25 17:40 Total Bilirubin 0.3 mg/dL (0.15-1.2) 02/01/25 17:40 AST 12 U/L (0-32) 02/01/25 17:40 ALT 7 U/L (0-33) 02/01/25 17:40 Alkaline Phosphatase 64 U/L (35-105) 02/01/25 17:40 Troponin T Baseline 10 ng/L (0-10) 02/01/25 17:40 Troponin T 120 Minute 6.76 ng/L (0-10) 02/01/25 19:21 Delta Troponin T -3.24 ABS# (0-10) L 02/01/25 19:21 Total Protein 6.8 g/dL (6.6-8.7) 02/01/25 17:40 Albumin 3.9 g/dL (3.5-5.2) 02/01/25 17:40 Globulin 2.9 g/dL (1.3-4.6) 02/01/25 17:40 XR interpretation done by ED provider, pending radiology final review ED provider radiology interpretation(s): CXR - No acute findings 12 EKG - Normal sinus rhythm Discharge Plan Discharge Patient Disposition: Home Clinical Impression: Atypical chest pain Condition: Stable Prescriptions: No Action (DME) Hinged Elbow Brace, right See Rx Instructions .Route .MEDSUPPLY Qty: 1 0RF Rx Instructions: As directed (DME) sole supports See Rx Instructions .ROUTE .MEDSUPPLY Qty: 1 0RF Rx Instructions: As directed albuterol sulfate [Ventolin HFA] 90 mcg/actuation HFA aerosol inhaler 2 puff inhalation QID PRN (Reason: shortness of breath or wheezing) Qty: 6.7 0RF nateglinide 120 mg tablet 120 mg PO TID Qty: 270 1RF Rx Instructions: give before meal(s) (DME) compressor, for nebulizer Device See Rx Instructions .Route Qty: 1 0RF Rx Instructions: As directed (DME) pen needle, diabetic [1st Tier Unifine Pentips] 31 gauge x 1/4 needle See Rx Instructions .ROUTE .MEDSUPPLY Qty: 100 12RF Rx Instructions: As directed fluticasone propionate [Flonase Allergy Relief] 50 mcg/actuation spray,suspension 1 spray intranasal Q12H 90 Days Qty: 48 0RF Rx Instructions: administer into each nostril (DME) FreeStyle Oneyda 3 Sensor Device See Rx Instructions .Route Qty: 2 5RF Rx Instructions: As directed cholecalciferol (vitamin D3) 1,250 mcg (50,000 unit) capsule 50,000 unit PO .weekly Qty: 4 2RF Tresiba FlexTouch U-200 200 unit/mL (3 mL) insulin pen 80 unit SUBCUT .at bedtime 90 Days Qty: 3 2RF Otezla 30 mg tablet 30 mg PO BID Qty: 60 4RF (DME) FreeStyle Oneyda 3 Hester Misc See Rx Instructions .Route Qty: 2 5RF Rx Instructions: As directed aspirin 81 mg tablet,chewable See Rx Instructions .ROUTE .COMPLEX Qty: 90 3RF Dose Instruction: TAKE 1 TABLET BY MOUTH EVERY DAY Rx Instructions: TAKE 1 TABLET BY MOUTH EVERY DAY pantoprazole 40 mg tablet,delayed release (DR/EC) 40 mg PO DAILY Qty: 90 0RF lisinopril 20 mg tablet 20 mg PO DAILY Qty: 90 0RF gabapentin 600 mg tablet 600 mg PO TID Qty: 270 0RF duloxetine 60 mg capsule,delayed release(DR/EC) 60 mg PO BID 30 Days Qty: 180 0RF dulaglutide 4.5 mg/0.5 mL pen injector 4.5 mg SUBCUT .Weekly Qty: 2 2RF Rx Instructions: SUNDAY clopidogrel 75 mg tablet 75 mg PO DAILY Qty: 90 0RF buspirone 10 mg tablet 10 mg PO TID PRN (Reason: anxiety) Qty: 90 0RF atorvastatin 40 mg tablet 40 mg PO BEDTIME Qty: 90 0RF Xarelto DVT-PE Treat 30d Start 15 mg (42)- 20 mg (9) tablets,dose pack See Rx Instructions .ROUTE .COMPLEX Qty: 51 0RF Protocol: Xarelto Dose Pack Condition: Start Dose/Route: 15 mg twice daily Instruction: after 21 days, Condition: Transition to Dose/Route: 20 mg once daily Instruction: thereafter Rx Instructions: take one-15 mg tablet twice daily for 21 days, then one-20 mg tablet once daily; must take with meal/food ciclopirox 1 % shampoo See Rx Instructions .ROUTE .COMPLEX Rx Instructions: Apply to scalp 2-3 times weekly. Allow to sit 5 minutes, then rinse. Discharge Orders: Discharge ED (Routine); Ordered 02/01/25 Ordered By: Patel Guillaume Referrals: Sara Browning FNP-C [Primary Care Provider, [facility]] Discharge Diet: Advance as tolerated and Low Cholesterol Discharge Activity: Resume usual activity Patient Instructions: Opioid Safety, Pain Management, Patient Portal & Joao Instructions Activity Restrictions/Additional Instructions: 1. Tylenol as directed for pain. Can try topical medications OTC to help. 2. Follow up with PCP this week. 3. Return to ED for new or worsening symptoms. 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
--- NOTE | 2025-02-01 17:33 | XRR_ITS ---
PROCEDURE INFORMATION: Exam: XR Chest Exam date and time: 02/01/2025 5:39 PM Age: 64 years old Clinical indication: Pain; Chest pressure; Additional info: Chest pain TECHNIQUE: Imaging protocol: Radiologic exam of the chest. Views: 1 view. COMPARISON: CR XR chest 2V* [id number] 10/15/2024 11:46 AM FINDINGS: Lungs: Unremarkable. No consolidation. Pleural spaces: Unremarkable. No pleural effusion. No pneumothorax. Heart/Mediastinum: Unremarkable. No cardiomegaly. Bones/joints: Unremarkable. XR/XR chest 1V portable [id number] IMPRESSION: No acute findings.
[2025-02-01 17:54] LABS: Hematocrit 39.0 % (36-47); Hemoglobin 12.80 g/dL (11.27-16.99); Mean Corpuscular HGB Conc 32.8 g/dL (30-55); Mean Corpuscular Hemoglobin 29.9 pg (27-33); Mean Corpuscular Volume 91.1 fl (85-98); Nucleated Red Blood Cells % 0 %; Platelet Count 383 10^3/cmm (157-399); Red Blood Count 4.28 10^6/uL (3.85-5.65); White Blood Count 9.37 10^3/uL (3.29-11.43)
[2025-02-01 18:11] LABS: Troponin(5th) Baseline 10 ng/L (0-10)
[2025-02-01 18:18] LABS: Alanine Aminotransferase 7 U/L (0-33); Albumin Level 3.9 g/dL (3.5-5.2); Alkaline Phosphatase 64 U/L (35-105); Anion Gap 15.4 (5-19); Aspartate Amino Transferase 12 U/L (0-32); Blood Urea Nitrogen 16 mg/dL (8-23); Calcium 9.4 mg/dL (8.5-10.5); Carbon Dioxide 23 mmol/L (22-29); Chloride 105 mmol/L (98-107); Globulin 2.9 g/dL (1.3-4.6); Glucose 196 mg/dL (65-115); Osmolality Calculated 295 mOsm/kg (285-295); Potassium 4.4 mmol/L (3.5-5.1); Sodium 139 mmol/L (136-145); Total Protein 6.8 g/dL (6.6-8.7)
--- NOTE | 2025-02-01 19:33 | ECG_ITS ---
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 Measurements Intervals [place] Rate: 69 P: 31 ME: 234 QRS: 26 QRSD: 86 T: 35 QT: 392 QTc: 422 Interpretive Statements SINUS RHYTHM WITH FIRST DEGREE AV BLOCK Compared to ECG 02/01/2025 16:49:08 First degree AV block now present Electronically Signed On 02-03-2025 18:34:54 CDT by Aldo Ch M.D. [email or web address]
[2025-02-01 19:59] LABS: Troponin 5 2HR 6.76 ng/L (0-10)
[2025-02-01 20:05] LABS: Troponin 5 2HR Delta -3.24 ABS# (0-10)
== END 2025-02-01 20:36 | disposition home or self-care (01) ==
PROVIDERS: Emergency Provider Family Medicine; PCP Nurse Practitioner Family
DX: R07.89 Other chest pain (principal); I25.10 Atherosclerotic heart disease of native coronary artery without angina pectoris; F41.9 Anxiety disorder, unspecified; I10 Essential (primary) hypertension; I25.2 Old myocardial infarction; Z95.5 Presence of coronary angioplasty implant and graft; Z79.82 Long term (current) use of aspirin; Z79.01 Long term (current) use of anticoagulants
CPT/HCPCS: 36415; 71045; 80053; 84484; 85025; 93005; 99285

== ENCOUNTER → 2025-02-24 11:00 | Outpatient (BNVA) | payer OTHER, SELFPAY | PROVIDERS: PCP Nurse Practitioner Family; Visit Provider Nurse Practitioner Family | DX: R80.9 Proteinuria, unspecified (principal); N18.2 Chronic kidney disease, stage 2 (mild); E11.22 Type 2 diabetes mellitus with diabetic chronic kidney disease | CPT/HCPCS: 80048; 81003; 82040; 82043; 82310; 83970; 84100; 84156; 84550; 85018 ==